=== PATIENT | male | born 1950 | race Caucasian/White ===

== ENCOUNTER → 2017-03-07 | Outpatient (CLI) | payer MEDICARE, OTHER ==
[2016-08-19 11:22] VITALS: BMI 33.1
[~2017-03-07] MED LIST: ALBU8.5H12 IH; AMOX-559 PO; ARI2 PO; ASPI-1471 PO; AUG875 PO; AZEL137S NS; AZEL6DRO9 OP; CHOL10005 PO; CIPR-214 PO; CLIN300C99 PO; CYCL10TA29 PO; ESCI20TA38 PO; ESCI20TA8 PO; FLUT16SP19 INH; FLUT16SP19 NS; FLUT1DIS28 IH; FOLI-68 PO; GUAN1TAB34 PO; HYDR-385 PO; HYDR-4309 PO; HYDR28.486 TP; HYDR2TAB74 PO; IBUP1TAB78 PO; IBUP600T22 PO; LAMO100T52 PO; LAMO150T36 PO; LAMOT150PT GT; LEVO-85 PO; LOR5/325 PO; MET10 PO; METH4TAB66 PO; MULT-1335 PO; NEPOD OD; NITR0.4T3 SL; ONDA4TAB PO; ONDA4TAB97 PO; OXYC-823 PO; OXYC-865 PO; PARO-243 PO; PARO-46 PO; PER PO; PRAV20TA65 PO; PRAV40TA78 PO; PRED20TA6 PO; RIV10 PO; SILD100T59 PO; SILD25TA6 PO; TAMS0.4C25 PO; TES75PMPPT TD; TEST1.25 TOP; TEST2.5G6; TRAM-420 PO; TRAZ-163 PO; TRIA5T TOP; TRIORA DT; ZOLP12.545 PO
== END ==
LOC: LAB 12:42
PROVIDERS: ATTEND Nurse Practitioner
DX: Z02.9 Encounter for administrative examinations, unspecified (principal)
CPT/HCPCS: 36415; 99001

== ENCOUNTER → 2017-05-02 | Outpatient (CLI) | payer MEDICARE, OTHER ==
[2016-08-19 11:22] VITALS: BMI 33.1
--- NOTE | 2017-05-02 16:40 | RADIOLOGY IMAGING REPORT ---
FACILITY: [facility] - [place] PATIENT NAME: Chava Peck : 1950 MR: [id number] V: [id number] EXAM DATE: ORDERING PHYSICIAN: LIUDMILA PRETTY TECHNOLOGIST: Location: [facility] Patient: Chava Peck : 1950 Visit/Account:[id number] Date of Sevice: 05/02/2017 GALLBLADDER HISTORY: Right upper quadrant pain ADDITIONAL HISTORY: None. COMPARISON: None. FINDINGS: Liver: Negative. Gallbladder: Unremarkable; no stones or sludge. Gallbladder wall upper normal limits in thickness at 3 mm. Positive sonographic Dudley's sign. Common duct: 3.0 mm diameter. Pancreas: Pancreas is unremarkable in appearance. Right kidney: Right kidney is 12.9 cm in length. There are multiple cysts in the right kidney includ ing a large exophytic cyst measuring 8.0 x 7.6 x 5.7 cm. Upper abdominal aorta and IVC: Patent. Ascites: None visualized. IMPRESSION: No evidence of cholelithiasis or cholecystitis. However, patient's pain does appear to correlate wit h the gallbladder with a positive sonographic Dudley's sign. Consider HIDA scan follow-up Multiple right renal cysts. Report Dictated By: Osvaldo Powell MD at 05/02/2017 4:33 PM Report E-Signed By: Osvaldo Powell MD at 05/02/2017 4:37 PM WSN:[id number]
== END ==
LOC: US 07:55
PROVIDERS: ATTEND Family Medicine
DX: N28.1 Cyst of kidney, acquired (principal); R19.8 Other specified symptoms and signs involving the digestive system and abdomen
CPT/HCPCS: 76705

== ENCOUNTER → 2017-05-15 | Outpatient (CLI) | payer MEDICARE, OTHER ==
[2016-08-19 11:22] VITALS: BMI 33.1
[~2017-05-15] MED LIST changes: -LAMOT150PT GT; +LAMOT150PT PO; +SINCALIDE 5 MCG VIAL INJ ONE; +WATER FOR INJ,STERILE 20 ML 0 ML ONE
--- NOTE | 2017-05-15 16:01 | RADIOLOGY IMAGING REPORT ---
FACILITY: [facility] PATIENT NAME: Chava Peck : 1950 MR: [id number] V: [id number] EXAM DATE: ORDERING PHYSICIAN: LIUDMILA PRETTY TECHNOLOGIST: [place] [facility] [place] Patient: Chava Peck : 1950 Visit/Account:[id number] Date of Sevice: 05/15/2017 HIDA HISTORY: Right upper quadrant pain TECHNIQUE: 5.5 mCi Tc99m Hepatolite was injected intravenously. Multiple sequential gamma camera jyoti ges of the abdomen were obtained for 118 minutes minutes. At that time, Kinevac was injected intraven ously and an additional 30 minutes of gamma camera imaging data was acquired. A computer-generated re gion of interest was placed around the gallbladder and time-activity curve for the gallbladder was de rived. The gallbladder ejection fraction was calculated. COMPARISON: Gallbladder ultrasound history 2017 FINDINGS: Liver uptake and excretion: Unremarkable. Time to appearance: Bile ducts: 5 minutes. Gallbladder: .... 41 minutes. Duodenum: 6 minutes. Duodenal-gastric reflux / extravasation: None. Post IV Kinevac: Despite two hours of imaging very little isotope entered into the gallbladder. CCK was not administe red to the patient as an accurate gallbladder ejection fraction could not be calculated due to inadeq uate isotope within the gallbladder IMPRESSION: CCK was not administered to the patient has very little isotope did enter the gallbladder despite two hours of imaging. Poor visualized the gallbladder can be seen with cholecystitis or chronic dysfunc tion or dyskinesis Report Dictated By: Lala Morton MD at 05/15/2017 3:50 PM Report E-Signed By: Lala Morton MD at 05/15/2017 3:56 PM WSN:[email or web address]
== END ==
LOC: RAD 07:06
PROVIDERS: ATTEND Family Medicine
DX: R10.11 Right upper quadrant pain (principal)
CPT/HCPCS: 78226; A9537; J2805

== ENCOUNTER 2017-05-21 00:20 | Observation (INO) | payer MEDICARE, OTHER ==
[2017-05-21] VITALS (15 sets, daily range): BP systolic 119–174; BP diastolic 69–98
[~2017-05-21] VITALS: Ht 167.6 cm; Wt 96.2 kg
[~2017-05-21 00:20] MED LIST changes: -SINCALIDE 5 MCG VIAL INJ ONE; -WATER FOR INJ,STERILE 20 ML 0 ML ONE
[2017-05-21] MEDS ORDERED: DEXAMETHASONE SOD 4 MG/ML VIAL ONE (09:30)
[2017-05-21] MEDS ORDERED: PROPOFOL EMUL(*) 10MG/ML 20 ML 20 ML ONE (09:30)
[2017-05-21] MEDS ORDERED: ROCURONIUM BROM 10 MG/ML 10 ML ONE (09:30)
[2017-05-21] MEDS ORDERED: SUGAMMADEX SOD 200 MG/2 ML SDV ONE (09:30)
[2017-05-21] MEDS ORDERED: fentaNYL CITR 250 MCG/5 ML AMP ONE (09:30)
[2017-05-21] MEDS ORDERED: ONDANSETRON 4 MG/2 ML VIAL ONE (09:30)
[2017-05-21] MEDS ORDERED: LIDOCAINE MPF 1% 5 ML VIAL ONE (09:30)
[2017-05-21] MEDS ORDERED: cefOXitin/DEX(*) 2GM/50ML PREM 50 ML IVPB ONE (10:30)
[2017-05-21] MEDS ORDERED: NORMOSOL R SOLN(*) 1000 ML BAG 1,000 ML IV PRN (10:30)
[2017-05-21] MEDS ORDERED: MIDAZOLAM 2 MG/2 ML VIAL IVP PRN (10:30)
[2017-05-21] MEDS ORDERED: FAMOTIDINE 20 MG TAB PO ONE (10:30)
[2017-05-21] MEDS ORDERED: LIDOCAINE/SOD BICARB 8.4% SYR ID ONE (10:30)
[2017-05-21] MEDS ORDERED: ROPIVACAINE 0.2% 20 ML VIAL ONE (11:03)
[2017-05-21] MEDS ORDERED: IOPAMIDOL 61% 100 ML INFUS BTL 100 ML ONE (11:04)
--- NOTE | 2017-05-21 11:21 | NACHTIGAL H&P ---
DATE OF ADMISSION: May 21, 2017 CHIEF COMPLAINT Right upper quadrant pain. HISTORY OF PRESENT ILLNESS This is a 67-year-old male who has had intermittent right upper quadrant pain for the last several months. This is a sharp pain which radiates through to the back, worse when he eats. He has occasional loose bowel movements. He has some nausea. He has had no fever. Patient has been having this for several months. It is increasing in frequency and intensity. Ultrasound was normal, but a HIDA scan showed poor uptake of the gallbladder. ALLERGIES CLINDAMYCIN. CURRENT MEDICATIONS 1. AndroGel 1%. 2. Aspirin. 3. Flomax 40 mg. 4. Folic acid 1 mg. 5. Lamictal 150 mg. 6. Ondansetron 8 mg. 7. Paxil 20 mg. 8. Pravastatin 40 mg. 9. Trazodone 100 mg. 10. Viagra p.r.n. 11. Vitamin D3. PAST MEDICAL HISTORY/OPERATIONS He had bilateral total knee replacements, cataract surgery, colonoscopy, and shoulder arthroscopy. PHYSICAL EXAMINATION GENERAL: A 67-year-old male in no acute distress. LUNGS: Clear. HEART: Regular rhythm. ABDOMEN: He has tenderness in the epigastrium and right upper quadrant. REVIEW OF SYSTEMS No cardiac, pulmonary, liver or kidney disease, diabetes or hypertension. No history of deep vein thrombosis. IMPRESSION Cholecystitis. PLAN Laparoscopic cholecystectomy with intraoperative cholangiogram. We discussed the procedure, complications and recovery time. He seems to understand and wishes to proceed. RAFA
[2017-05-21] MEDS ORDERED: GLYCOPYRROLATE 0.2 MG/ML SDV ONE (11:27)
[2017-05-21] MEDS ORDERED: KETOROLAC 30 MG/ML VIAL ONE (11:33)
[2017-05-21] MEDS ORDERED: KETAMINE HCL 200 MG/20 ML MDV ONE (12:00)
[2017-05-21] MEDS ORDERED: fentaNYL CITR 100 MCG/2 ML AMP ONE ×3 (12:08→12:58)
--- NOTE | 2017-05-21 12:17 | Post Operative Progress Note ---
Post Operative Progress Note Date: May 21, 2017 Time: 12:16 Surgeon: chas Anesthesia: dr granados Pre-Op Diagnosis: cholecystitis Post-Op Diagnosis: same Procedure(s): lap alex with FRANDY Kim MD May 21, 2017 12:17
--- NOTE | 2017-05-21 12:19 | Short(Outpt) Discharge Summary ---
Discharge Summary Reason for Hosp/Final Diag: (1) Cholecystitis Status: Chronic Hospital Course & Plan: lap alex with gram Departure Discharge to: Home Discharge Instructions Home Meds Reported Medications Paroxetine Hcl (PAXIL) 20 Mg Tablet, 20 MG PO QDAY, TAB 11/01/16 Lamotrigine (LAMICTAL) 150 Mg Tablet, 150 MG PO QDAY 11/01/16 Ibuprofen/Diphenhydramine Cit (IBUPROFEN PM CAPLET) Unknown Strength Tablet, PO QHS PRN 11/01/16 Folic Acid (FOLIC ACID) 1 Mg Tablet, 1 MG PO QDAY, TAB 11/01/16 TESTOSTERONE 1.62% Topical Gel (ANDROGEL 1.62% Topical Gel) 1.25 Gm Gel.packet, 50 MG TOP QDAY 08/24/16 Hydrocodone Bit/Acetaminophen (HYDROCODON-ACETAMINOPHEN 5-325) 1 Each Tablet, 1 EACH PO Q8H for PAIN, TAB 08/24/16 Sildenafil Citrate (VIAGRA) 25 Mg Tablet, PO PRN 08/24/16 Cholecalciferol (Vitamin D3) (VITAMIN D3) 1,000 Unit Tablet, PO DAILY, TAB 06/29/16 Fluticasone Prop 50 Mcg Ns (FLONASE 50 MCG NS) 16 Gm [place].susp, 1 SPRAY INH HS , BOT 06/29/16 Azelastine Hcl (AZELASTINE HCL) 137 Mcg/0.137 Ml [place].pump, 137 MCG NS DAILY, SPRAY 06/29/16 Tamsulosin Hcl (FLOMAX) 0.4 Mg Cap.er.24h, 0.4 MG PO QDAY, CAP 05/29/16 Pravastatin Sodium (PRAVASTATIN SODIUM) 40 Mg Tablet, 1 TAB PO QDAY 05/29/16 Trazodone Hcl (TRAZODONE HCL) 100 Mg Tablet, 100 MG PO QHS, TAB 05/29/16 Discontinued Reported Medications Fluticasone/Salmeterol (ADVAIR 250-50 DISKUS) 1 Each Disk.w.dev, 1 EACH IH BID 08/24/16 Discontinued Scripts Prednisone (PREDNISONE) 20 Mg Tablet, 60 MG PO QDAY, #9 TAB 0 Refills Prov:TG MEYER MD 01/19/17 Diet: Regular Activity: As Tolerated Special Instructions: ice to incisions for 48 hours remove bandage and shower sunday to see me in one week. call [phone] for FRANDY Hannah MD May 21, 2017 12:19
--- NOTE | 2017-05-21 12:36 | RADIOLOGY IMAGING REPORT ---
FACILITY: [facility] PATIENT NAME: Chava Peck : 1950 MR: [id number] V: [id number] EXAM DATE: ORDERING PHYSICIAN: FRANDY BUTLER TECHNOLOGIST: Location: [facility] Patient: Chava Peck : 1950 Visit/Account:[id number] Date of Sevice: 05/21/2017 Technique: CHOLANGIOGRAM OPERATIVE HISTORY: SYMPTOMATIC GALLBLADDER Comparison studies: HIDA May 15, 2017, right upper quadrant ultrasound April 24, 2017 FINDINGS: Multiple fluoroscopic images were obtained for laparoscopic cholecystectomy. No filling de fects are identified within the common bile duct or visualized intrahepatic biliary radicles. Contra st flows into the adjacent small bowel. Dose area product: 0.104 mGym2 IMPRESSION: 1. Intraoperative fluoroscopic radiographs as described above. Please see operative report for furt her details. Report Dictated By: Yordan Lyon DO at 05/21/2017 12:30 PM Report E-Signed By: Yordan Lyon DO at 05/21/2017 12:31 PM WSN:[id number]
[2017-05-21] MEDS ORDERED: APAP/HYDROCODONE 325/5 TAB PO ONE (13:50)
[2017-05-21] MEDS ORDERED: FLUSH 10 ML SYR IVP PRN (17:15)
[2017-05-21] MEDS ORDERED: APAP/HYDROCODONE 325/5 TAB PO PRN (17:15)
[2017-05-21] MEDS: KETOROLAC 30 MG/ML VIAL IVP SCH (18:28)
[2017-05-21] MEDS ORDERED: FLUTICASONE PROP 0.05% 16 GM SCH (21:00)
[2017-05-22] MEDS: KETOROLAC 30 MG/ML VIAL IVP SCH ×2 (00:13→05:25)
[2017-05-22 00:15] VITALS: BP 129/67
[2017-05-22 04:04] VITALS: BP 137/74
--- NOTE | 2017-05-22 04:22 | OPERATIVE REPORT 1 ---
EVENT DATE: May 21, 2017. SURGEON: Shoaib Gallardo MD ANESTHESIOLOGIST: Juliocesar Rosario MD ANESTHESIA: General. PREOPERATIVE DIAGNOSIS Acalculous cholecystitis. POSTOPERATIVE DIAGNOSIS Acalculous cholecystitis. PROCEDURE Laparoscopic cholecystectomy with intraoperative cholangiogram. DESCRIPTION OF PROCEDURE Patient was placed in the supine position and given general anesthetic. His abdomen was prepped and draped in sterile fashion. Skin was anesthetized with 0.2% ropivacaine. Small incision was made above the umbilicus. Veress needle was inserted. The abdomen was insufflated with CO2. A 5 mm port was placed under direct vision. No bleeding was noted. Ports were placed under direct vision, two 5 mm in the right subcostal region and a 10 mm in the epigastrium. Gallbladder was grasped and raised cephalad. There were adhesions to the undersurface of the gallbladder. These were taken down with electrocautery and blunt dissection. We dissected out the cystic duct, gallbladder junction, placed a clip there, opened the cystic duct, inserted Taut catheter, obtained cholangiograms, which were normal. Cystic duct was doubly clipped proximally and transected. Cystic artery a couple of branches were dissected out. They were clipped proximally, distally and transected. We then used electrocautery to dissect the gallbladder from the bed of the liver. This dissection went very nicely. We had excellent hemostasis. Gallbladder was removed through the epigastric port. We inspected for bleeding again in the fossa, none was noted. Ports were removed under direct vision. No bleeding was noted. Skin was closed with interrupted 4-0 Maxon. Steri-Strips and Airstrip were placed. Patient tolerated procedure well, no apparent complications. [facility] HOSPITALBeti
--- NOTE | 2017-05-22 07:08 | General Surgery Progress Note ---
Subjective Progress Notes Subjective no complaints, slept well, no nausea, pain less Physical Exam Vital Signs Date Time Temp Pulse Resp B/P (MAP) Pulse Ox O2 Delivery O2 Flow Rate FiO2 05/22/17 04:04 98.5 42 16 137/74 (95) 96 Nasal Cannula 1.0 General Appearance: Alert, Awake, No Acute Distress GI: Soft and Non-Tender Assessment and Plan Problems: (1) Cholecystitis Status: Chronic Assessment & Plan: lap alex with gram 05/22/17 doing well, home today Exam Sepsis Risk: No Definite Risk FRANDY BUTLER MD May 22, 2017 07:08
[2017-05-22 07:56] VITALS: BP 144/76; Ht 167.6 cm; Wt 96.2 kg
[2017-05-22] MEDS ORDERED: PARoxetine HCL 20 MG TAB PO SCH (09:00)
[2017-05-22] MEDS ORDERED: FOLIC ACID 1 MG TAB PO SCH (09:00)
[2017-05-22] MEDS ORDERED: TAMSULOSIN HCL 0.4 MG CAP PO SCH (09:00)
== END 2017-05-22 12:17 | disposition home or self-care (01) ==
LOC: OR 00:20 → MED 17:25
PROVIDERS: ADMIT Surgery; ATTEND Surgery
DX: K81.9 Cholecystitis, unspecified (principal)
CPT/HCPCS: 47563; 74300; 88304; 94667; A9270; G0378; J0694; J1100; J1885; J2001; J2405; J2704; J2795; J3010; J3490; Q9967

== ENCOUNTER → 2017-07-24 | Outpatient (REF) ==
[2017-05-22 07:56] VITALS: BMI 34.2
== END ==
LOC: LAB 17:06
PROVIDERS: ATTEND Nurse Practitioner
DX: Z02.83 Encounter for blood-alcohol and blood-drug test (principal)
CPT/HCPCS: 99001

== ENCOUNTER 2017-08-29 17:17 | Emergency (ER) | payer MEDICARE, OTHER ==
[2017-05-22 07:56] VITALS: Wt 72.6 kg
[2017-08-29 17:22] VITALS: BP 192/101
--- NOTE | 2017-08-29 17:30 | ER Report ---
History and Physical Time Seen By MD: 17:29 Hx. of Stated Complaint: pt states feels terrible, unable to eat/drink much, nauseated. reports when doing assessment that he found out today his is him and that he had court today for 4th DUI, trial will be in january ([facility] MD) Time Seen By MD: 17:36 (ROGERS CAMARA DO) HPI/ROS CHIEF COMPLAINT: Nausea, vomiting HISTORY OF PRESENT ILLNESS: 67-year-old male brought in by EMS from home complaining of epigastric pain and nausea. He did vomit last night. Patient states he is an alcoholic. He states she's been sober since March until several days ago when he began drinking again. He states his last alcohol was 2 days ago. He has numerous medical problems. He was as started on gabapentin for chronic back pain. He's been seeing Dr. Santacruz and consultation for consideration of back surgery. Patient states he's lost 90 pounds in 18 months intentionally. He notes no change in bowel habits such as diarrhea, constipation or black stools. Patient denies dysuria, frequency or hematuria. Patient status post lap scopic, cholecystectomy since May of this year. Patient admits he was in court today for his 4th DUI. Patient's also under a lot of stress remodeling his home. He and his are also going through divorce. REVIEW OF SYSTEMS: Respiratory: No cough, no dyspnea. Cardiovascular: No chest pain, no palpitations. Gastrointestinal: As above Musculoskeletal: No back pain. (ROGERS CAMARA DO) Allergies: Coded Allergies: clindamycin (Verified Allergy, Unknown, 08/29/17) Home Meds Active Scripts Ondansetron (ZOFRAN ODT) 4 Mg Tab.rapdis, 4 MG PO every 6 hours Y for NAUSEA/ VOMITING, #10 TAB TAKE 1 TABLET BY MOUTH EVERY 12 HOURS Prov:ROGERS CAMARA DO 08/29/17 Reported Medications Paroxetine Hcl (PAXIL) 20 Mg Tablet, 20 MG PO QDAY, TAB 11/01/16 Lamotrigine (LAMICTAL) 150 Mg Tablet, 150 MG PO QDAY 11/01/16 Ibuprofen/Diphenhydramine Cit (IBUPROFEN PM CAPLET) Unknown Strength Tablet, PO QHS PRN 11/01/16 Folic Acid (FOLIC ACID) 1 Mg Tablet, 1 MG PO QDAY, TAB 8/30/17 TESTOSTERONE 1.62% Topical Gel (ANDROGEL 1.62% Topical Gel) 1.25 Gm Gel.packet, 50 MG TOP QDAY 08/24/16 Hydrocodone Bit/Acetaminophen (HYDROCODON-ACETAMINOPHEN 5-325) 1 Each Tablet, 1 EACH PO Q8H for PAIN, TAB 08/24/16 Sildenafil Citrate (VIAGRA) 25 Mg Tablet, PO PRN 08/24/16 Cholecalciferol (Vitamin D3) (VITAMIN D3) 1,000 Unit Tablet, PO DAILY, TAB 06/29/16 Fluticasone Prop 50 Mcg Ns (FLONASE 50 MCG NS) 16 Gm [place].susp, 1 SPRAY INH HS , BOT 06/29/16 Azelastine Hcl (AZELASTINE HCL) 137 Mcg/0.137 Ml [place].pump, 137 MCG NS DAILY, SPRAY 06/29/16 Tamsulosin Hcl (FLOMAX) 0.4 Mg Cap.er.24h, 0.4 MG PO QDAY, CAP 05/29/16 Pravastatin Sodium (PRAVASTATIN SODIUM) 40 Mg Tablet, 1 TAB PO QDAY 05/29/16 Trazodone Hcl (TRAZODONE HCL) 100 Mg Tablet, 100 MG PO QHS, TAB 05/29/16 Past Medical/Surgical History Past medical history: Bilateral cataracts and retinal detachments, hypercholesterolemia, allergic rhinitis, chronic prostatitis, osteoarthritis, alcohol abuse/alcohol dependence. Past surgical history bilateral cataracts, retinal detachments, sinus surgery, laparoscopic cholecystectomy lateral knee replacements, right shoulder scope biopsy (ROGERS CAMARA DO) Reviewed Nurses Notes: Yes Old Medical Records Reviewed: Yes (ROGERS CAMARA DO) Hx Smoking: No Smoking Status: Never Smoker Exposure to Second Hand Smoke?: No Hx Substance Use Disorder: No Hx Alcohol Use: Yes (TG MEYER MD) Constitutional Vital Sign - Last 24 Hours 08/29/17 17:22 Temp 98.2 Pulse 76 Resp 16 B/P (MAP) 192/101 Pulse Ox 95 Intake and Output 08/29/17 08/29/17 08/30/17 15:00 23:00 07:00 Intake Total 1000 ml Balance 1000 ml (ROGERS CAMARA DO) Physical Exam Vital signs stable, afebrile, pulse ox normal, blood pressure grossly elevated 192/101 General Appearance: The patient is alert, has no immediate need for airway protection and no current signs of toxicity. No acute distress, skin warm, dry , pink HEENT: Pupils equal and round no injection. Oropharynx without redness or exudate, mucous members are moist Respiratory: Chest is non tender, lungs are clear to auscultation. Cardiac: regular rate and rhythm Gastrointestinal: Abdomen is soft and non tender, no masses, bowel sounds normal. No hepatomegaly Musculoskeletal: Neck: Neck is supple and non tender. Extremities have full range of motion and are non tender. No edema, no calf tenderness Skin: No rashes or lesions. DIFFERENTIAL DIAGNOSIS: After history and physical exam differential diagnosis was considered for abdominal pain including but not limited to appendicitis, cholecystitis, gastritis and urinary tract infection. (ROGERS CAMARA DO) Medical Decision Making Data Points Result Diagram: 08/29/17 1705 08/29/17 1705 Laboratory Hematology Test 08/29/17 17:05 08/29/17 18:12 Red Blood Count 5.25 M/uL (4.00-5.60) Mean Corpuscular Volume 90.2 fL (80.0-96.0) Mean Corpuscular Hemoglobin 31.1 pg (26.0-33.0) Mean Corpuscular Hemoglobin Concent 34.4 g/dL (32.0-36.0) Red Cell Distribution Width 13.4 % (11.5-14.5) Mean Platelet Volume 8.6 fL (7.2-11.1) Neutrophils (%) (Auto) 63.1 % (39.4-72.5) Lymphocytes (%) (Auto) 28.5 % (17.6-49.6) Monocytes (%) (Auto) 7.5 % (4.1-12.4) Eosinophils (%) (Auto) 0.5 % (0.4-6.7) Basophils (%) (Auto) 0.4 % (0.3-1.4) Nucleated RBC Relative Count (auto) 0.0 /100WBC Neutrophils # (Auto) 6.1 K/uL (2.0-7.4) Lymphocytes # (Auto) 2.8 K/uL (1.3-3.6) Monocytes # (Auto) 0.7 K/uL (0.3-1.0) Eosinophils # (Auto) 0.1 K/uL (0.0-0.5) Basophils # (Auto) 0.0 K/uL (0.0-0.1) Nucleated RBC Absolute Count (auto) 0.00 K/uL Sodium Level 140 mmol/L (137-145) Potassium Level 3.6 mmol/L (3.5-5.0) Chloride Level 101 mmol/L (98-107) Carbon Dioxide Level 24 mmol/L (22-30) Blood Urea Nitrogen 12 mg/dl (9-21) Creatinine 0.80 mg/dl (0.66-1.25) Glomerular Filtration Rate Calc > 60.0 Random Glucose 115 mg/dl (75-110) Calcium Level 10.1 mg/dl (8.4-10.2) Total Bilirubin 0.6 mg/dl (0.2-1.3) Aspartate Amino Transf (AST/SGOT) 93 U/L (0-35) Alanine Aminotransferase (ALT/SGPT) 97 U/L (0-56) Alkaline Phosphatase 54 U/L (0-126) Troponin I < 0.012 ng/ml Total Protein 7.9 g/dl (6.3-8.2) Albumin 4.8 g/dl (3.5-5.0) Amylase Level 69 U/L (0-110) Lipase 89 U/L (23-300) Serum Alcohol < 10 mg/dl Urine Color Yellow Urine Clarity Slightly-cloudy Urine pH 5.0 pH (4.8-9.5) Urine Specific [place] 1.024 Urine Protein 30 mg/dL (NEGATIVE) Urine Glucose (UA) 50 mg/dL (NEGATIVE) Urine Ketones Negative mg/dL (NEGATIVE) Urine Blood Negative (NEGATIVE) Urine Nitrite Negative (NEGATIVE) Urine Bilirubin Negative (NEGATIVE) Urine Urobilinogen Negative mg/dL (0.2-1.9) Urine Leukocyte Esterase Negative (NEGATIVE) Urine RBC 1 /HPF (0-2/HPF) Urine WBC 1 /HPF (0-5/HPF) Urine Squamous Epithelial Cells None /LPF (</=FEW) Urine Bacteria Negative /HPF (NONE-FEW) Urine Mucus Few /HPF (NONE-FEW) Chemistry Test 08/29/17 17:05 08/29/17 18:12 White Blood Count 9.7 k/uL (4.5-11.0) Red Blood Count 5.25 M/uL (4.00-5.60) Hemoglobin 16.3 g/dL (14.0-18.0) Hematocrit 47.4 % (42.0-52.0) Mean Corpuscular Volume 90.2 fL (80.0-96.0) Mean Corpuscular Hemoglobin 31.1 pg (26.0-33.0) Mean Corpuscular Hemoglobin Concent 34.4 g/dL (32.0-36.0) Red Cell Distribution Width 13.4 % (11.5-14.5) Platelet Count 193 K/uL (150-450) Mean Platelet Volume 8.6 fL (7.2-11.1) Neutrophils (%) (Auto) 63.1 % (39.4-72.5) Lymphocytes (%) (Auto) 28.5 % (17.6-49.6) Monocytes (%) (Auto) 7.5 % (4.1-12.4) Eosinophils (%) (Auto) 0.5 % (0.4-6.7) Basophils (%) (Auto) 0.4 % (0.3-1.4) Nucleated RBC Relative Count (auto) 0.0 /100WBC Neutrophils # (Auto) 6.1 K/uL (2.0-7.4) Lymphocytes # (Auto) 2.8 K/uL (1.3-3.6) Monocytes # (Auto) 0.7 K/uL (0.3-1.0) Eosinophils # (Auto) 0.1 K/uL (0.0-0.5) Basophils # (Auto) 0.0 K/uL (0.0-0.1) Nucleated RBC Absolute Count (auto) 0.00 K/uL Glomerular Filtration Rate Calc > 60.0 Calcium Level 10.1 mg/dl (8.4-10.2) Total Bilirubin 0.6 mg/dl (0.2-1.3) Aspartate Amino Transf (AST/SGOT) 93 U/L (0-35) Alanine Aminotransferase (ALT/SGPT) 97 U/L (0-56) Alkaline Phosphatase 54 U/L (0-126) Troponin I < 0.012 ng/ml Total Protein 7.9 g/dl (6.3-8.2) Albumin 4.8 g/dl (3.5-5.0) Amylase Level 69 U/L (0-110) Lipase 89 U/L (23-300) Serum Alcohol < 10 mg/dl Urine Color Yellow Urine Clarity Slightly-cloudy Urine pH 5.0 pH (4.8-9.5) Urine Specific [place] 1.024 Urine Protein 30 mg/dL (NEGATIVE) Urine Glucose (UA) 50 mg/dL (NEGATIVE) Urine Ketones Negative mg/dL (NEGATIVE) Urine Blood Negative (NEGATIVE) Urine Nitrite Negative (NEGATIVE) Urine Bilirubin Negative (NEGATIVE) Urine Urobilinogen Negative mg/dL (0.2-1.9) Urine Leukocyte Esterase Negative (NEGATIVE) Urine RBC 1 /HPF (0-2/HPF) Urine WBC 1 /HPF (0-5/HPF) Urine Squamous Epithelial Cells None /LPF (</=FEW) Urine Bacteria Negative /HPF (NONE-FEW) Urine Mucus Few /HPF (NONE-FEW) Toxicology Test 08/29/17 17:05 Serum Alcohol < 10 mg/dl Urinalysis Test 08/29/17 18:12 Urine Color Yellow Urine Clarity Slightly-cloudy Urine pH 5.0 pH (4.8-9.5) Urine Specific [place] 1.024 Urine Protein 30 mg/dL (NEGATIVE) Urine Glucose (UA) 50 mg/dL (NEGATIVE) Urine Ketones Negative mg/dL (NEGATIVE) Urine Blood Negative (NEGATIVE) Urine Nitrite Negative (NEGATIVE) Urine Bilirubin Negative (NEGATIVE) Urine Urobilinogen Negative mg/dL (0.2-1.9) Urine Leukocyte Esterase Negative (NEGATIVE) Urine RBC 1 /HPF (0-2/HPF) Urine WBC 1 /HPF (0-5/HPF) Urine Squamous Epithelial Cells None /LPF (</=FEW) Urine Bacteria Negative /HPF (NONE-FEW) Urine Mucus Few /HPF (NONE-FEW) (ROGERS CAMARA DO) EKG/Imaging EKG Interpretation 12 lead EK Rhythm: normal sinus rhythm [place]: normal QRS: normal ST segments: normal, no evidence of ischemia or dysrhythmia (ROGERS CAMARA DO) ED Course/Re-evaluation Clinical Indication for ER IV: Hydration, IV Access ED Course Patient was admitted to an examination room. H&P was done. The differential diagnoses was considered. Patient with abdominal discomfort and nausea. He had vomiting the night before. He is treated with IV fluids and Zofran. He appears quite anxious. He appeared in court today for his 4th DUI. Diagnostic evaluation is unremarkable. His laboratory studies are unremarkable. His EKG and troponin are negative. Patient with acute anxiety over multiple life stressors. Patient advised to continue on all of his medication. Prescription for Zofran provided for nausea control. He's advised to follow-up with his primary care physician. Decision to Disposition Date: Aug 29, 2017 Decision to Disposition Time: 18:37 (ROGERS CAMARA DO) Depart Departure Latest Vital Signs Vital Signs Date Time Temp Pulse Resp B/P (MAP) Pulse Ox O2 Delivery O2 Flow Rate FiO2 08/29/17 17:22 98.2 76 16 192/101 95 (ROGERS CAMARA DO) Impression: Primary Impression: Nausea and vomiting Additional Impressions: Abdominal pain Anxiety as acute reaction to gross stress Hyperlipidemia Condition: Improved Disposition: HOME OR SELF-CARE Referrals: LIUDMILA PRETTY MD (PCP) New Scripts Ondansetron (ZOFRAN ODT) 4 Mg Tab.rapdis 4 MG PO every 6 hours Y for NAUSEA/VOMITING, #10 TAB TAKE 1 TABLET BY MOUTH EVERY 12 HOURS Prov: ROGERS CAMARA DO 08/29/17 Patient Instructions: Abdominal Pain (ED), Anxiety (ED) Problem Qualifiers Primary Impression: Nausea and vomiting Vomiting type: unspecified Vomiting Intractability: unspecified Qualified Codes: R11.2 - Nausea with vomiting, unspecified Additional Impressions: Abdominal pain Abdominal location: upper abdomen, unspecified Qualified Codes: R10.10 - Upper abdominal pain, unspecified Hyperlipidemia Hyperlipidemia type: unspecified Qualified Codes: E78.5 - Hyperlipidemia, unspecified TG MEYER MD Aug 29, 2017 17:30 ROGERS CAMARA DO Aug 29, 2017 17:36
[2017-08-29] MEDS ORDERED: NS(*) 0.9% 1000 ML BAG 1,000 ML IV ONE (17:42)
[2017-08-29] MEDS ORDERED: ONDANSETRON 4 MG/2 ML VIAL IVP ONE (17:45)
[2017-08-29 17:56] LABS: PLATELET COUNT, AUTOMATED 193 K/uL (150-450)
--- NOTE | 2017-08-29 17:56 | EKG ---
FACILITY: [facility] [place] PATIENT NAME: BORIS GOFF : [id number] MR: [id number] V: [id number] EXAM DATE: ORDERING PHYSICIAN: ROGERS CAMARA TECHNOLOGIST: ANNABELLE Test Reason : NAUSEA Blood Pressure : / mmHG Vent. Rate : 067 BPM Atrial Rate : 067 BPM P-R Int : 158 ms QRS Dur : 098 ms QT Int : 410 ms P-R-T Axes : 056 016 044 degrees QTc Int : 433 ms Normal sinus rhythm Normal ECG When compared with ECG of 09-JAN-2017 14:05, Relatively unchanged Confirmed by EFRAIN PABLO ([id number]) on 08/29/2017 6:58:51 PM Referred By: BETSY Confirmed By:EFRAIN PABLO
[2017-08-29] MEDS ORDERED: ONDA4TAB PO (18:39)
== END 2017-08-29 19:05 | disposition home or self-care (01) ==
LOC: ER 17:26
DX: F41.9 Anxiety disorder, unspecified (principal); E78.5 Hyperlipidemia, unspecified; R11.2 Nausea with vomiting, unspecified; R10.10 Upper abdominal pain, unspecified
CPT/HCPCS: 81001; 82150; 83690; 84484; 85025; 93005; 96361; 96374; 99283; G0480; J2405; J7030; 80320; 82040; 82247; 82310; 82374; 82435; 82565; 82947; 84075; 84132; 84155; 84295; 84450; 84460; 84520

== ENCOUNTER → 2017-08-29 | Outpatient (CLI) | payer MEDICARE, OTHER ==
[2017-05-22 07:56] VITALS: BMI 34.2
== END ==
LOC: AMB 17:06
PROVIDERS: ATTEND Nurse Practitioner
DX: R53.1 Weakness (principal); R11.10 Vomiting, unspecified
CPT/HCPCS: A0425; A0427

== ENCOUNTER → 2017-11-08 | Outpatient (REF) | payer MEDICARE, OTHER ==
[2017-05-22 07:56] VITALS: BMI 34.2
[~2017-11-08] MED LIST changes: -TRAZ-163 PO; +TRAZ100T31 PO
[2017-11-08 12:01] LABS: INR 1.02
== END ==
LOC: ZZSENDIN 11:33
PROVIDERS: ATTEND Physician Assistant
DX: Z01.812 Encounter for preprocedural laboratory examination (principal)
CPT/HCPCS: 81001; 85610

== ENCOUNTER 2017-11-16 10:18 | Emergency (ER) | payer MEDICARE, OTHER ==
[2017-05-22 07:56] VITALS: Wt 86.2 kg
[~2017-11-16 10:18] MED LIST changes: -DOCU-416 PO; -GABA-549 PO; -MAG-66 PO; -MULT-859 PO
[2017-11-16 10:20] VITALS: BP 136/78
--- NOTE | 2017-11-16 10:41 | ER Report ---
History and Physical Time Seen By MD: 10:37 Hx. of Stated Complaint: PT WAS SEEN BY HIS MENTAL [facility] THERAPIST TODAY STATING HE DOESNT WANT TO LIVE ANYMORE AND HE JUST WANTS TO BE DONE WITH EVERYHING. PT HAS BEEN IN PAIN FOR THE LAST TEN YEARS R/T A BACK SURGERY. THEN IN [facility] HIS FILED FOR A DIVORCE. PT ADMITSHE DOES NOT HAVE A CURRENT PLAN, BUT WOULD BE OK IF HE . PT ADMITTED TO DRINKING VODKA THIS AM. HPI/ROS CHIEF COMPLAINT: [facility]HS evaluation HISTORY OF PRESENT ILLNESS: Patient is a 67-year-old male with history of bipolar disorder, alcohol dependence and abuse, posttraumatic stress disorder. He is brought to the emergency department via ambulance for evaluation for suicidal ideation without specific plan. I did receive a call from his counselor at [facility]. Apparently over the last month or so the patient has had a decline and has become increasingly more depressed, hopeless and helpless and is having thoughts of suicide. Patient himself denies a specific plan but admits to and he dyspnea, and just not wanting to live. He apparently did speak with his ex- this morning and said that he just wanted everything to end. Patient also recently relapsed on alcohol his last drink was approximate 5 AM this morning admits to vodka. REVIEW OF SYSTEMS: Constitutional: No fever, no chills. Eyes: No discharge. ENT: No sore throat. Cardiovascular: No chest pain, no palpitations. Respiratory: No cough, no shortness of breath. Gastrointestinal: No abdominal pain, no vomiting. Genitourinary: No hematuria. Musculoskeletal: No back pain. Skin: No rashes. Neurological: No headache. Psychiatric: Depression with suicidal thoughts no specific plan Allergies: Coded Allergies: clindamycin (Verified Allergy, Unknown, 08/29/17) Home Meds Reported Medications Paroxetine Hcl (PAXIL) 20 Mg Tablet, 20 MG PO QDAY, TAB 11/01/16 Lamotrigine (LAMICTAL) 150 Mg Tablet, 150 MG PO QDAY 11/01/16 Folic Acid (FOLIC ACID) 1 Mg Tablet, 1 MG PO QDAY, TAB 11/01/16 TESTOSTERONE 1.62% Topical Gel (ANDROGEL 1.62% Topical Gel) 1.25 Gm Gel.packet, 50 MG TOP QDAY 6/22/17 Hydrocodone Bit/Acetaminophen (HYDROCODON-ACETAMINOPHEN 5-325) 1 Each Tablet, 1 EACH PO PRN for PAIN, TAB 08/24/16 Cholecalciferol (Vitamin D3) (VITAMIN D3) 1,000 Unit Tablet, PO DAILY, TAB 06/29/16 Fluticasone Prop 50 Mcg Ns (FLONASE 50 MCG NS) 16 Gm [place].susp, 1 SPRAY INH PRN, BOT 06/29/16 Azelastine Hcl (AZELASTINE HCL) 137 Mcg/0.137 Ml [place].pump, 137 MCG NS PRN, SPRAY 06/29/16 Tamsulosin Hcl (FLOMAX) 0.4 Mg Cap.er.24h, 0.4 MG PO QDAY, CAP 05/29/16 Pravastatin Sodium (PRAVASTATIN SODIUM) 40 Mg Tablet, 1 TAB PO QDAY 05/29/16 Trazodone Hcl (TRAZODONE HCL) 100 Mg Tablet, 100 MG PO QHS, TAB 05/29/16 Discontinued Reported Medications Ibuprofen/Diphenhydramine Cit (IBUPROFEN PM CAPLET) Unknown Strength Tablet, PO QHS PRN 11/01/16 Sildenafil Citrate (VIAGRA) 25 Mg Tablet, PO PRN 08/24/16 Discontinued Scripts Ondansetron (ZOFRAN ODT) 4 Mg Tab.rapdis, 4 MG PO every 6 hours PRN for NAUSEA/VOMITING, #10 TAB TAKE 1 TABLET BY MOUTH EVERY 12 HOURS Prov:ROGERS CAMARA DO 08/29/17 Past Medical/Surgical History Past medical history for depression, alcohol abuse, bipolar disorder, hyper cholesterolemia Hx Smoking: No Smoking Status: Never Smoker Exposure to Second Hand Smoke?: No Hx Substance Use Disorder: No Constitutional Vital Sign - Last 24 Hours 11/16/17 10:20 Temp 98.4 Pulse 51 Resp 16 B/P (MAP) 136/78 Pulse Ox 93 Physical Exam General/Constitutional: Patient is awake, alert, nontoxic and in no acute respiratory distress. Head: Normocephalic and atraumatic. Eyes: Conjunctival clear, Pupils are equal and reactive to light. Extraocular muscles are intact and symmetrical. Sclera are clear and anicteric. Ears:External canals are clear. Tympanic membranes are clear with normal landmarks and light reflex. Nares: No rhinorrhea or bleeding. Turbinates are pink and moist. Oropharyngeal: Mucous membranes are moist. Neck: Supple, no adenopathy. Cardiovascular: Heart is regular rate and rhythm without audible murmurs, rubs or gallops. Pulmonary: Lungs are clear to auscultation bilaterally. There are no wheezes, rales, or rhonchi. Chest rise is symmetrical Abdomen: Soft, nontender, no guarding or peritoneal signs. Extremities: No gross deformities, No peripheral cyanosis. Able to move all 4 extremities. Neuro: Alert and oriented X3, Cranial nerves 2 thru 12 are intact and symmetrical. Patient has normal gait. Skin: No rashes, skin is warm dry and well perfused. Psychiatric: Patient with suicidal thoughts without active plan. No obvious audiovisual hallucinations. Patient does not seem to be reacting to internal stimuli. Mood appears happy which is incongruent for situation. Medical Decision Making Data Points Result Diagram: 11/16/17 1048 11/16/17 1048 Laboratory Hematology Test 11/16/17 10:48 Red Blood Count 4.86 M/uL (4.00-5.60) Mean Corpuscular Volume 93.4 fL (80.0-96.0) Mean Corpuscular Hemoglobin 31.5 pg (26.0-33.0) Mean Corpuscular Hemoglobin Concent 33.8 g/dL (32.0-36.0) Red Cell Distribution Width 13.8 % (11.5-14.5) Mean Platelet Volume 7.8 fL (7.2-11.1) Neutrophils (%) (Auto) 46.2 % (39.4-72.5) Lymphocytes (%) (Auto) 42.3 % (17.6-49.6) Monocytes (%) (Auto) 8.2 % (4.1-12.4) Eosinophils (%) (Auto) 2.7 % (0.4-6.7) Basophils (%) (Auto) 0.6 % (0.3-1.4) Nucleated RBC Relative Count (auto) 0.0 /100WBC Neutrophils # (Auto) 3.0 K/uL (2.0-7.4) Lymphocytes # (Auto) 2.7 K/uL (1.3-3.6) Monocytes # (Auto) 0.5 K/uL (0.3-1.0) Eosinophils # (Auto) 0.2 K/uL (0.0-0.5) Basophils # (Auto) 0.0 K/uL (0.0-0.1) Nucleated RBC Absolute Count (auto) 0.00 K/uL Sodium Level 140 mmol/L (137-145) Potassium Level 3.8 mmol/L (3.5-5.0) Chloride Level 105 mmol/L (98-107) Carbon Dioxide Level 24 mmol/L (22-30) Blood Urea Nitrogen 18 mg/dl (9-21) Creatinine 0.70 mg/dl (0.66-1.25) Glomerular Filtration Rate Calc > 60.0 Random Glucose 97 mg/dl (75-110) Calcium Level 9.7 mg/dl (8.4-10.2) Magnesium Level 1.8 mg/dl (1.7-2.2) Total Bilirubin 0.2 mg/dl (0.2-1.3) Aspartate Amino Transf (AST/SGOT) 23 U/L (0-35) Alanine Aminotransferase (ALT/SGPT) 29 U/L (0-56) Alkaline Phosphatase 28 U/L (0-126) Total Protein 6.8 g/dl (6.3-8.2) Albumin 4.1 g/dl (3.5-5.0) Salicylates Level < 10 mg/L Salicylate Last Dose Date unk Acetaminophen Level < 10 ug/ml Serum Alcohol 149 mg/dl Chemistry Test 11/16/17 10:48 White Blood Count 6.5 k/uL (4.5-11.0) Red Blood Count 4.86 M/uL (4.00-5.60) Hemoglobin 15.3 g/dL (14.0-18.0) Hematocrit 45.4 % (42.0-52.0) Mean Corpuscular Volume 93.4 fL (80.0-96.0) Mean Corpuscular Hemoglobin 31.5 pg (26.0-33.0) Mean Corpuscular Hemoglobin Concent 33.8 g/dL (32.0-36.0) Red Cell Distribution Width 13.8 % (11.5-14.5) Platelet Count 201 K/uL (150-450) Mean Platelet Volume 7.8 fL (7.2-11.1) Neutrophils (%) (Auto) 46.2 % (39.4-72.5) Lymphocytes (%) (Auto) 42.3 % (17.6-49.6) Monocytes (%) (Auto) 8.2 % (4.1-12.4) Eosinophils (%) (Auto) 2.7 % (0.4-6.7) Basophils (%) (Auto) 0.6 % (0.3-1.4) Nucleated RBC Relative Count (auto) 0.0 /100WBC Neutrophils # (Auto) 3.0 K/uL (2.0-7.4) Lymphocytes # (Auto) 2.7 K/uL (1.3-3.6) Monocytes # (Auto) 0.5 K/uL (0.3-1.0) Eosinophils # (Auto) 0.2 K/uL (0.0-0.5) Basophils # (Auto) 0.0 K/uL (0.0-0.1) Nucleated RBC Absolute Count (auto) 0.00 K/uL Glomerular Filtration Rate Calc > 60.0 Calcium Level 9.7 mg/dl (8.4-10.2) Magnesium Level 1.8 mg/dl (1.7-2.2) Total Bilirubin 0.2 mg/dl (0.2-1.3) Aspartate Amino Transf (AST/SGOT) 23 U/L (0-35) Alanine Aminotransferase (ALT/SGPT) 29 U/L (0-56) Alkaline Phosphatase 28 U/L (0-126) Total Protein 6.8 g/dl (6.3-8.2) Albumin 4.1 g/dl (3.5-5.0) Salicylates Level < 10 mg/L Salicylate Last Dose Date unk Acetaminophen Level < 10 ug/ml Serum Alcohol 149 mg/dl Toxicology Test 11/16/17 10:48 Salicylates Level < 10 mg/L Salicylate Last Dose Date unk Acetaminophen Level < 10 ug/ml Serum Alcohol 149 mg/dl EKG/Imaging EKG Interpretation EKG shows sinus bradycardia with a ventricular rate of 49 bpm. Monitor Interpretation: Sinus Bradycardia ED Course/Re-evaluation ED Course 11/16/2017 10:41:21 am plan at this time will be [place] was assessment; medical screening evaluation. Patient suicidal with any Soheila and helplessness hopelessness. Suspect if cleared medically we'll admit to the psychiatric floor. Decision to Disposition Date: Nov 16, 2017 Decision to Disposition Time: 11:33 Depart Departure Latest Vital Signs Vital Signs Date Time Temp Pulse Resp B/P (MAP) Pulse Ox O2 Delivery O2 Flow Rate FiO2 11/16/17 10:20 98.4 51 16 136/78 93 Impression: Primary Impression: Depression with suicidal ideation Additional Impression: Alcohol intoxication Condition: Improved Disposition: XFER TO [facility] (to dr Smyth) Referrals: LIUDMILA PRETTY MD (PCP) Problem Qualifiers Additional Impression: Alcohol intoxication Complication of substance-induced condition: uncomplicated Qualified Codes: F10.920 - Alcohol use, unspecified with intoxication, uncomplicated SHEYLA RAMOS MD Nov 16, 2017 10:41
[2017-11-16 11:02] LABS: PLATELET COUNT, AUTOMATED 201 K/uL (150-450)
--- NOTE | 2017-11-16 11:09 | EKG ---
FACILITY: [facility] PATIENT NAME: BORIS GOFF : [id number] MR: [id number] V: [id number] EXAM DATE: ORDERING PHYSICIAN: SHEYLA RAMOS TECHNOLOGIST: ANGEL Test Reason : PRE OP Blood Pressure : / mmHG Vent. Rate : 049 BPM Atrial Rate : 049 BPM P-R Int : 158 ms QRS Dur : 094 ms QT Int : 444 ms P-R-T Axes : 053 017 042 degrees QTc Int : 401 ms Sinus bradycardia Probable left atrial enlargement Borderline left axis Confirmed by LETICIA BOGGS ([id number]) on 11/16/2017 5:46:57 PM Referred By: RICHARD Confirmed By:LETICIA BOGGS
[2017-11-16] MEDS ORDERED: GABA-549 PO (13:51)
[2017-11-17] MEDS ORDERED: DOCU-416 PO (09:40)
[2017-11-17] MEDS ORDERED: MULT-859 PO (09:40)
[2017-11-17] MEDS ORDERED: MAG-66 PO (09:42)
== END 2017-11-16 12:10 ==
LOC: ER 10:24
DX: R45.851 Suicidal ideations (principal); F32.9 Major depressive disorder, single episode, unspecified; F10.229 Alcohol dependence with intoxication, unspecified; R00.1 Bradycardia, unspecified
CPT/HCPCS: 36415; 83735; 84443; 85025; 93005; 99284; G0480; 80305; 80320; 80329; 81001; 82040; 82247; 82310; 82374; 82435; 82565; 82947; 84075; 84132; 84155; 84295; 84450; 84460; 84520

== ENCOUNTER 2017-11-16 11:38 | Inpatient (IN) | payer MEDICARE, OTHER ==
[2017-05-22 07:56] VITALS: BMI 34.2
[2017-11-16] MEDS ORDERED: MAG HYD/AL HYD/SIMETH 30ML UDC PO PRN (11:55)
[2017-11-16] MEDS ORDERED: DIAZEPAM 10 MG TAB PO ONE (13:20)
[2017-11-16] MEDS ORDERED: GABA-549 PO (13:51)
[2017-11-16] MEDS ORDERED: AZELASTINE HCL 137 MCG PRN (14:20)
[2017-11-16 15:10] VITALS: BP 156/72
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
[2017-11-16] MEDS ORDERED: traZODone HCL 50 MG TAB PO SCH (21:00)
[2017-11-16] MEDS ORDERED: DOCUSATE SODIUM 100 MG CAP PO SCH (21:00)
[2017-11-16] MEDS: GABAPENTIN 300 MG CAP PO SCH (21:35)
[2017-11-17 02:23] VITALS: BP 118/66
[2017-11-17] MEDS ORDERED: DIAZEPAM 10 MG TAB PO ONE (06:25)
[2017-11-17 07:35] VITALS: BP 138/72
[2017-11-17] MEDS: GABAPENTIN 300 MG CAP PO SCH (08:19)
[2017-11-17] MEDS ORDERED: FOLIC ACID 1 MG TAB PO SCH (09:00)
[2017-11-17] MEDS ORDERED: FLUTICASONE PROP 0.05% 16 GM ENA PRN (09:00)
[2017-11-17] MEDS ORDERED: MULTIVITAMINS TAB PO SCH (09:00)
[2017-11-17] MEDS ORDERED: PRAVASTATIN SOD 20 MG TAB PO SCH (09:00)
[2017-11-17] MEDS ORDERED: CHOLECALCIFEROL 1000 UNIT TAB PO SCH (09:00)
[2017-11-17] MEDS ORDERED: TESTOSTERONE TOP SCH (09:00)
[2017-11-17] MEDS ORDERED: TAMSULOSIN HCL 0.4 MG CAP PO SCH (09:00)
[2017-11-17] MEDS ORDERED: lamoTRIgine 100 MG TAB PO SCH (09:00)
[2017-11-17] MEDS ORDERED: PARoxetine HCL 20 MG TAB PO SCH (09:00)
[2017-11-17] MEDS ORDERED: MULT-859 PO (09:40)
[2017-11-17] MEDS ORDERED: DOCU-416 PO (09:40)
[2017-11-17] MEDS ORDERED: MAG-66 PO (09:42)
--- NOTE | 2017-11-17 17:12 | DISCHARGE SUMMARY ---
DATE OF ADMISSION: November 16, 2017 DATE OF DISCHARGE: November 17, 2017 ATTENDING PRACTITIONER Swati Arevalo, Psychiatric Nurse Practitioner I met with the patient on the morning of November 17, 2017. REASON FOR ADMISSION This is a 67-year-old male admitted to the unit due to his report of feeling despondent. He had passive suicidal thoughts in light of recent psychosocial stressors including his fourth DUI charge. PHYSICAL EXAMINATION Please see emergency room note for complete review of systems. VITAL SIGNS: Vital signs on the day of discharge include temperature 98.3, pulse 53, blood pressure 138/72, pulse oximetry 94% on room air. GENERAL: He denies any withdrawal symptoms, and his CIWA scores have remained at zero. LABORATORY DATA Completed prior to admission. CBC and chemistries within normal limits. TSH at 1.39, within normal limits. Acetaminophen level undetectable. Salicylates undetectable. Alcohol was 149 on November 16, 2017, in the morning when admitted. MENTAL STATUS EXAMINATION GENERAL APPEARANCE, BEHAVIOR, AND ATTITUDE: Patient is pleasant and cooperative. He is dressed in hospital scrubs per policy. Grooming appears within normal limits. He appears his stated age. SPEECH: Clear and spontaneous, of normal rate, rhythm, and volume. MOOD: Described as better. AFFECT: Rangeful and appropriate to situation. THOUGHT PROCESSES: Overall logical and goal directed. No loose associations or flight of ideas. THOUGHT CONTENT: Client is denying any suicidal ideations. He is voicing plans for the future. He denies homicidal ideation. He is free of any auditory, visual, or other hallucinations. SENSORIUM: Clear. COGNITION: Alert and oriented to person, place, time, and situation. MEMORY: Immediate, recent, and remote are estimated intact. INTELLIGENCE: Average based upon interview. INSIGHT AND JUDGMENT: Good at this time. TREATMENT Patient received his usual medications, He participated in evaluation and individual and group therapy and education. He was monitored per the CIWA protocol, and he denied any withdrawal symptoms. HOSPITAL COURSE Patient was pleasant and cooperative throughout his stay. No new medications were initiated. Patient did not exhibit withdrawal symptoms. He reports that he drank one day prior to admission, and he had otherwise been sober for three months. Patient did have contact with his family during his stay as his sister is coming to town to stay with him as he is having surgery on Sunday morning. CONDITION OF PATIENT ON DISCHARGE Considered stable and of minimal risk to himself and others. Appropriate for continued outpatient management with his psychiatric providers. DISPOSITION Patient was discharged to home. His sister is [facility] him. He is to follow up with Judy Still, Psychiatric Nurse Practitioner, for outpatient medications as scheduled. He is to follow up with [facility]. He will follow up with his primary care provider and surgeon as indicated. DISCHARGE DIAGNOSIS: Adjustment Disorder with Depressed Mood and Anxiety Alcohol Use Disorder, Severe DISCHARGE MEDICATIONS The patient was discharged on the following psychiatric medications: 1. Trazodone 100 mg at bedtime. 2. Lamictal 150 mg daily. 3. Paxil 20 mg daily. He was provided the 24-hour crisis line number should hus symptoms or problems return. The risks, benefits, and alternatives of above discharge plan were discussed with the client. Informed consent was given to proceed with the above discharge plan by this competent patient. RAFA
== END 2017-11-17 11:06 | disposition home or self-care (01) | DRG 882 ==
LOC: BHS 11:38 → UNDOADMIN 11:38 → BHS 12:36
PROVIDERS: ADMIT Psychiatry & Neurology Psychiatry; ATTEND Psychiatry & Neurology Psychiatry
DX: F43.23 Adjustment disorder with mixed anxiety and depressed mood (principal); R45.851 Suicidal ideations; F10.20 Alcohol dependence, uncomplicated; G89.29 Other chronic pain; Y90.6 Blood alcohol level of 120-199 mg/100 ml; F31.9 Bipolar disorder, unspecified; Z96.653 Presence of artificial knee joint, bilateral; Z62.810 Personal history of physical and sexual abuse in childhood; Z81.1 Family history of alcohol abuse and dependence; Z81.8 Family history of other mental and behavioral disorders; Z90.49 Acquired absence of other specified parts of digestive tract; Z88.1 Allergy status to other antibiotic agents

== ENCOUNTER → 2017-11-16 | Outpatient (CLI) | payer MEDICARE, OTHER ==
[2017-05-22 07:56] VITALS: BMI 34.2
[~2017-11-16] MED LIST changes: +DOCU-416 PO; +GABA-549 PO; +MAG-66 PO; +MULT-859 PO
== END ==
LOC: AMB 09:48
PROVIDERS: ATTEND Nurse Practitioner
DX: R45.851 Suicidal ideations (principal)
CPT/HCPCS: A0425; A0429

== ENCOUNTER → 2017-11-19 | Day surgery (SDC) | payer MEDICARE, OTHER ==
[2017-05-22 07:56] VITALS: Ht 170.2 cm; Wt 89.8 kg
[~2017-11-19] VITALS: Ht 170.2 cm; Wt 89.8 kg
[~2017-11-19] MED LIST changes: +ACETAMINOPHEN 500 MG TAB PO ONE; +DOCU-416 PO; +FAMOTIDINE 20 MG TAB PO ONE; +GABA-549 PO; +LIDOCAINE/SOD BICARB 8.4% SYR ID ONE; +MAG-66 PO; +MIDAZOLAM 2 MG/2 ML VIAL IVP PRN; +MULT-859 PO; +NORMOSOL R SOLN(*) 1000 ML BAG 1,000 ML IV PRN; +PREGABALIN 150 MG CAPSULE PO ONE; +ceFAZolin(*) 2GM/D5W 50ML 50 ML IVPB ONE
[2017-11-19 09:28] VITALS: BP 150/83
== END ==
LOC: OR 00:44
PROVIDERS: ATTEND Orthopaedic Surgery
DX: Z02.9 Encounter for administrative examinations, unspecified (principal)
CPT/HCPCS: 36415; 86850; 86900; 86901; A9270; G0480; 80320

== ENCOUNTER 2017-12-26 00:37 | Inpatient (IN) | payer MEDICARE, OTHER ==
[2017-12-26] VITALS (11 sets, daily range): BP systolic 86–150; BP diastolic 57–93
[~2017-12-26] VITALS: Ht 167.6 cm; Wt 89.8 kg
[~2017-12-26 00:37] MED LIST changes: -ACETAMINOPHEN 500 MG TAB PO ONE; -FAMOTIDINE 20 MG TAB PO ONE; -HYDR-4309 PO; +HYDR-653 PO; -LIDOCAINE/SOD BICARB 8.4% SYR ID ONE; -MIDAZOLAM 2 MG/2 ML VIAL IVP PRN; -NORMOSOL R SOLN(*) 1000 ML BAG 1,000 ML IV PRN; -PREGABALIN 150 MG CAPSULE PO ONE; -ceFAZolin(*) 2GM/D5W 50ML 50 ML IVPB ONE
[2017-12-26] MEDS: PREGABALIN 150 MG CAPSULE PO ONE ×2 (07:29→07:31)
[2017-12-26] MEDS ORDERED: fentaNYL CITR 250 MCG/5 ML AMP ONE (07:45)
[2017-12-26] MEDS ORDERED: LIDOCAINE MPF 1% 5 ML VIAL ONE (07:46)
[2017-12-26] MEDS ORDERED: PROPOFOL EMUL(*) 10MG/ML 20 ML 20 ML ONE (07:46)
[2017-12-26] MEDS ORDERED: ONDANSETRON 4 MG/2 ML VIAL ONE (07:46)
[2017-12-26] MEDS ORDERED: PROPOFOL EMUL(*) 10MG/ML 20 ML 60 ML ONE ×3 (08:19→11:55)
[2017-12-26] MEDS ORDERED: REMIFENTANIL HCL 1 MG VIAL ONE ×3 (08:23→12:00)
[2017-12-26] MEDS ORDERED: FAMOTIDINE 20 MG TAB PO ONE (08:25)
[2017-12-26] MEDS ORDERED: LIDOCAINE/SOD BICARB 8.4% SYR ID ONE (08:25)
[2017-12-26] MEDS ORDERED: ACETAMINOPHEN 500 MG TAB PO ONE (08:25)
[2017-12-26] MEDS ORDERED: NORMOSOL R SOLN(*) 1000 ML BAG 1,000 ML IV PRN (08:25)
[2017-12-26] MEDS ORDERED: ceFAZolin(*) 2GM/D5W 50ML 50 ML IVPB ONE (08:25)
[2017-12-26] MEDS ORDERED: MIDAZOLAM 2 MG/2 ML VIAL IVP PRN (08:25)
[2017-12-26] MEDS ORDERED: KETAMINE HCL 200 MG/20 ML MDV ONE (08:31)
[2017-12-26] MEDS ORDERED: ROPIVACAINE 0.2% 20 ML VIAL ONE (09:10)
[2017-12-26] MEDS ORDERED: THROMBIN (BOVINE) 20,000 UNIT VIAL ONE (09:10)
[2017-12-26] MEDS ORDERED: ROCURONIUM BROM 10 MG/ML 10 ML ONE (09:30)
[2017-12-26] MEDS ORDERED: HYDROmorphone HCL 2 MG/ML SDV ONE (09:47)
[2017-12-26] MEDS ORDERED: SUGAMMADEX SOD 200 MG/2 ML SDV ONE (09:59)
[2017-12-26] MEDS ORDERED: PROPOFOL EMUL(*) 10MG/ML 20 ML 40 ML ONE (12:29)
--- NOTE | 2017-12-26 13:30 | RADIOLOGY IMAGING REPORT ---
FACILITY: [facility] PATIENT NAME: Chava Peck : 1950 MR: [id number] V: [id number] EXAM DATE: ORDERING PHYSICIAN: LC MAZNO TECHNOLOGIST: [place] [facility] [place] : 1950 Visit/Account:[id number] Date of Sevice: 12/26/2017 Exam type: LUMBAR SPINE 1 VIEW History: L3-L5 DISC HERNIATION/FUSION Comparison: None. Findings: Two cross table lateral prone intraoperative views of the lumbar spine demonstrate postsurgical sun es from posterior lumbar interbody fusion at L3-4, L4-5 and L5-S1 IMPRESSION: 1. As above Report Dictated By: Lala Morton MD at 12/26/2017 1:25 PM Report E-Signed By: Lala Morton MD at 12/26/2017 1:26 PM WSN:[id number]
[2017-12-26] MEDS ORDERED: fentaNYL CITR 100 MCG/2 ML AMP ONE ×2 (13:42→14:23)
[2017-12-26] MEDS ORDERED: LR(*) 1000 ML BAG 1,000 ML IV PRN (14:40)
[2017-12-26] MEDS ORDERED: ONDANSETRON 4 MG/2 ML VIAL IVP PRN (14:40)
[2017-12-26] MEDS ORDERED: FLUSH 10 ML SYR IVP PRN (14:40)
[2017-12-26] MEDS ORDERED: ACETAMINOPHEN 500 MG TAB PO PRN (14:40)
[2017-12-26] MEDS ORDERED: BENZOCAINE/MENTHOL 1 EACH LOZG PO PRN (14:40)
[2017-12-26] MEDS ORDERED: BISACODYL 10 MG SUPP PR PRN (14:40)
[2017-12-26] MEDS ORDERED: diphenhydrAMINE 25 MG CAP PO PRN (14:40)
[2017-12-26] MEDS ORDERED: ACETAMINOPHEN(*)1000 MG/100 ML 100 ML IVPB PRN (14:40)
[2017-12-26] MEDS ORDERED: oxyCODONE HCL 5 MG CAP PO PRN (14:40)
--- NOTE | 2017-12-26 15:11 | OPERATIVE REPORT 1 ---
EVENT DATE: December 26, 2017 SURGEON: Chris Santacruz MD ANESTHESIOLOGIST: Leonel Gary MD ANESTHESIA: General endotracheal anesthesia. OPTOMETRIST PRESIDENT/PRACTICE OWNER: ZULEMA Juarez PREOPERATIVE DIAGNOSIS Lumbar spinal stenosis with L3-L4 and L4-L5 spondylolisthesis. POSTOPERATIVE DIAGNOSIS Lumbar spinal stenosis with L3-L4 and L4-L5 spondylolisthesis. PROCEDURE PERFORMED L2 to L5 laminectomy with L3 to L5 posterolateral instrumented fusion. INTRAVENOUS FLUIDS 2100 mL ESTIMATED BLOOD LOSS 250 mL IMPLANTS USED Relign pedicle screws 6.5 mm x 45 mm from [employer] times six, 70 mm x 5.5 mm connecting rods from [employer] times two, locking caps from [employer] times six. SPECIMENS None. DRAINS A 10 mm flat Rob-Mcdaniel drain from the lower back. COMPLICATIONS None. DISPOSITION Post-anesthesia care unit. INDICATIONS FOR SURGERY Mr. Peck is a 67-year-old gentleman who presented to my clinic with a complaint of radiating pain, numbness, and tingling down the right greater than the left lower extremity both in an L4 and an L5 distribution. In addition to this, he noted weakness in the lower extremities and a significant decrease in walking tolerance secondary to having tired legs. His physical examination was essentially normal, but his imaging studies showed severe spinal stenosis at L3- L4 and L4-L5 with moderate stenosis at the L2-L3. There was also an anterolisthesis of L3 on L4 and L4 on L5. Secondary to ongoing symptoms and failure of physical therapy, medications, injections, activity modifications, etc., Mr. Peck was offered and elected to undergo L2 to L5 laminectomy with L3 to L5 posterolateral instrumented fusion. Prior to surgery, I explained in detail to the patient the possible risks of surgery. These risks include bleeding, infection, damage to surrounding structures, nerve root injury, spinal fluid leak, meningitis, persistent and/or worsening pain, need for further surgery, , blindness, sexual dysfunction, autonomic nervous system dysfunction, and other unforeseen medical and surgical complications. An understanding that in general spinal surgery is more predictive at improving extremity discomfort than axial spine pain was stressed. DESCRIPTION OF PROCEDURE On the date of surgery, the patient was met in the preoperative hold area, and all questions were answered. His operative site was identified and marked by myself. He was brought to the operating room, and after succumbing to anesthesia, was positioned in the prone position on a Rob table. All bony protuberances and soft tissues were well padded in the standard fashion. Care was taken to maintain appropriate perfusion pressures during anesthesia. Preoperative antibiotics were administered according to the appropriate timing schedule. At the conclusion of the procedure, sponge and needle counts were correct times two. A final timeout was undertaken by members of the operating team to confirm correct patient, correct levels, and correct surgery. An incision was then made down the midline over the intended spinal levels, and sharp dissection was carried out down to the posterior elements. Posterior soft tissues were elevated off the posterior elements of the spine in a subperiosteal manner, and a lateral radiograph was obtained to confirm appropriate spinal levels. We then cleared soft tissues off the laminae of L2, L3, L4, and L5, and then exposed out to the tips of the transverse processes of L3, L4, and L5. We then packed the lateral gutters with thrombin-soaked Ray-Marlee sponges. Spinous processes of L2, L3, and L4 were removed with a combination of a Le[place]ell rongeur and the [employer] [place] bone cutter. The laminae were thinned down the midline with a Leksell rongeur. The spinal canal was then entered by using a Romero curette to undermine the superior insertion of the ligamentum flavum from the inferior aspect of the L4 lamina. A Dre elevator was used to separate any dural adhesions from surrounding bone and soft tissue prior to use of the Kerrison punch. A 4 mm Kerrison punch was used to perform a midline decompression of the L4, L3, and L2 laminae. I then performed bilateral lateral recess decompressions again using a combination of #3 and #4 Kerrison rongeurs. We took out a significant amount of overgrown facet as well as thickened ligamentum flavum at all three levels. Once this was completed, a Dre elevator was used to check the lateral recesses as well as the foramina of each involved nerve root to ensure adequate decompression. Once this was complete, we utilized liquid Gelfoam and patties to control bleeding in the laminectomy defect. Attention was then turned to placement of pedicle screws. Starting points for pedicle screws were identified at approximately the junction of the pars interarticularis, the midpoint of the transverse process, and the lateral aspect of the facet joint. A high-speed devonte was then used to decorticate the starting point, and then a Lenke-type probe was advanced against resistance through the isthmus of the pedicle. A ball-tip feeler was used to confirm absence of bony breaching, palpating superiorly, inferiorly, medially, and laterally, as well as distally to confirm absence of bony breaching. We chose 6.5 mm x 45 mm screws and placed screws bilaterally at L3, L4, and L5. After placement of each screw, it was tested with neurophysiologic monitoring to confirm absence of bony breaching, and all screws tested well above accepted levels. We then selected 70 mm connecting rods, and after lining up the tulips on all of the screws, placed those connecting rods, and performed a reduction maneuver of the L4 vertebra, pulling it posteriorly to align all three vertebrae up. Locking caps were placed and tightened and then finally tightened using the torque-limiting device. A lateral radiograph was obtained that showed excellent placement of the instrumentation. A high-speed devonte was then used to decorticate the transverse processes of L3, L4, and L5. Local bone from the laminectomy had previously been run through a bone mill and was packed in the lateral gutters. Once this was accomplished, the retractors were removed, and the wound was closed in layers using interrupted sutures for the deep fascia, inverted interrupted sutures for the subcutaneous tissue, and then a running subcuticular skin stitch. Sponge and needle counts were correct times two. A 10 mm flat Rob-Mcdaniel drain as left deep to the fascia. POSTOPERATIVE CARE PLAN The patient will remain in the hospital until he meets discharge criteria. He will follow up in my clinic in two weeks' time for wound check and examination. RAFA
[2017-12-26] MEDS ORDERED: FLUTICASONE PROP 0.05% 16 GM ENA PRN (15:35)
--- NOTE | 2017-12-26 15:45 | Hospitalist Consultation ---
History of Present Illness Requesting Physician Dr. Santacruz Reason for Consult Medical Management Chief Complaint s/p lumbar fusion History of Present Illness He was admitted s/p lumbar fusion. It is reported the surgery went well and without complication. History Problems: (1) Bipolar disorder Status: Chronic (2) BPH (benign prostatic hyperplasia) Status: Chronic (3) Depression Status: Chronic Home Meds Reported Medications Lamotrigine (LAMOTRIGINE) 100 Mg Tablet, 100 MG PO DAILY 12/19/17 Docusate Sodium (COLACE) 100 Mg Capsule, 100 MG PO QHS, CAPSULE 11/17/17 Multivits,Ca,Minerals/Iron/Fa (THERA-M TABLET) 1 Each Tablet, 1 EACH PO DAILY 11/17/17 Gabapentin (GABAPENTIN) 300 Mg Capsule, 300 MG PO TID, CAPSULE 11/16/17 Paroxetine Hcl (PAXIL) 20 Mg Tablet, 20 MG PO QDAY, TAB 11/01/16 Folic Acid (FOLIC ACID) 1 Mg Tablet, 1 MG PO QDAY, TAB 11/01/16 TESTOSTERONE 1.62% Topical Gel (ANDROGEL 1.62% Topical Gel) 1.25 Gm Gel.packet, 50 MG TOP QDAY 08/24/16 Cholecalciferol (Vitamin D3) (VITAMIN D3) 1,000 Unit Tablet, PO DAILY, TAB 06/29/16 Fluticasone Prop 50 Mcg Ns (FLONASE 50 MCG NS) 16 Gm [place].susp, 1 SPRAY INH PRN, BOT 06/29/16 Tamsulosin Hcl (FLOMAX) 0.4 Mg Cap.er.24h, 0.4 MG PO QDAY, CAP 05/29/16 Pravastatin Sodium (PRAVASTATIN SODIUM) 40 Mg Tablet, 1 TAB PO QDAY 05/29/16 Trazodone Hcl (TRAZODONE HCL) 100 Mg Tablet, 100 MG PO QHS, TAB 05/29/16 Discontinued Reported Medications Mag Hydrox/Al Hydrox/Simeth (MAALOX MAXIMUM STRENGTH SUSP) 355 Ml Oral.susp, 30 ML PO Q4H PRN for DYSPEPSIA 11/17/17 Lamotrigine (LAMICTAL) 150 Mg Tablet, 150 MG PO QDAY 11/01/16 Hydrocodone Bit/Acetaminophen (HYDROCODON-ACETAMINOPHEN 5-325) 1 Each Tablet, 1 EACH PO PRN for PAIN, TAB 08/24/16 Azelastine Hcl 0.1% [place] (AZELASTINE HCL 0.1% SPRAY) 137 Mcg/0.137 Ml [place].pump, 137 MCG NS PRN, SPRAY 06/29/16 Allergies: Coded Allergies: clindamycin (Verified Allergy, Intermediate, WIDE SPREAD RASH AND SOB, 12/19/17) Hx Smoking: No Smoking Status: Never Smoker Exposure to Second Hand Smoke?: No Caffeine Intake: Coffee Caffeine/Cups Per Day: 1 Hx Alcohol Use: Yes When Quit Alcohol?: 12/13/17 Hx Substance Use Disorder: No Social Drug Use: Never Review of Systems All Systems Reviewed/Normal: Yes, Except as Noted Exam Vital Signs Vital Signs Date Time Temp Pulse Resp B/P (MAP) Pulse Ox O2 Delivery O2 Flow Rate FiO2 12/26/17 15:17 97.5 61 16 141/89 (106) 96 Nasal Cannula 2.0 General Appearance: Alert, Awake, No Acute Distress, Afebrile Neuro: No Gross deficits Cardiovascular: Regular Rate and Rhythm Respiratory: No Respiratory Distress, Clear to Auscultation GI: Abd Soft and Non-Tender Psych: Alert & Oriented X3, Appropriate Mood & Affect Assessment and Plan Problems: (1) S/P lumbar fusion Status: Acute Assessment & Plan: Followed by Dr. Santacruz. (2) Bipolar disorder Status: Chronic Assessment & Plan: He is on chronic treatment with Lamotrigine and Trazodone. (3) Depression Status: Chronic Assessment & Plan: He is on chronic treatment with paroxetine. (4) BPH (benign prostatic hyperplasia) Status: Chronic Assessment & Plan: He is on chronic treatment with Flomax. (5) Hyperlipemia Status: Chronic Assessment & Plan: He is on chronic treatment with Pravastatin. (6) History of alcohol abuse Status: Chronic Assessment & Plan: He will be placed on CIWA. He has a history of alcohol use. Venous Thromboembolism Antithrombotics Is Pt On Any Antithrombotics?: No JATIN MONDRAGON Dec 26, 2017 15:45
[2017-12-26] MEDS: APAP/HYDROCODONE 325/5 TAB PO PRN ×2 (16:01→21:10)
[2017-12-26] MEDS: ceFAZolin(*) 2GM/D5W 50ML 50 ML IVPB SCH (17:16)
[2017-12-26] MEDS: HYDROmorphone HCL 2 MG/ML SDV IVP PRN ×2 (18:35→22:27)
[2017-12-26] MEDS: traZODone HCL 50 MG TAB PO SCH (20:59)
[2017-12-26] MEDS: GABAPENTIN 300 MG CAP PO SCH (20:59)
[2017-12-26] MEDS: DOCUSATE SODIUM 100 MG CAP PO SCH (21:00)
[2017-12-26] MEDS: DIAZEPAM 5 MG TAB PO PRN (21:00)
[2017-12-26] MEDS ORDERED: DOCUSATE SODIUM 100 MG CAP PO SCH (21:00)
[2017-12-27] MEDS: ceFAZolin(*) 2GM/D5W 50ML 50 ML IVPB SCH ×2 (01:22→09:42)
[2017-12-27 03:15] VITALS: BP 132/87
[2017-12-27] MEDS: DIAZEPAM 5 MG TAB PO PRN (05:14)
[2017-12-27 07:29] VITALS: BP 125/78
--- NOTE | 2017-12-27 07:47 | Hospitalist Progress Note ---
Subjective Progress Notes Subjective He denies any current complaints. Pain has been well controlled. Apparently, he had some urinary retention and had Rodriguez cath placed. Physical Exam Vital Signs Date Time Temp Pulse Resp B/P (MAP) Pulse Ox O2 Delivery O2 Flow Rate FiO2 12/27/17 07:29 99.2 82 18 125/78 (94) 91 Nasal Cannula 1.0 Intake and Output 12/27/17 07:00 Intake Total 4450 ml Output Total 2400 ml Balance 2050 ml Intake Oral 1400 ml IV Total 3050 ml Output Urine Total 1425 ml Drainage Total 660 ml Estimated Blood Loss 250 ml Other 65 ml General Appearance: Alert, Awake Cardiovascular: Regular Rate and Rhythm Respiratory: Clear to Auscultation Assessment and Plan Problems: (1) S/P lumbar fusion Status: Acute Assessment & Plan: He appears stable post-op. As per Dr. Santacruz. (2) Bipolar disorder Status: Chronic Assessment & Plan: He is on chronic treatment with Lamotrigine and Trazodone. (3) Depression Status: Chronic Assessment & Plan: He is on chronic treatment with paroxetine. (4) BPH (benign prostatic hyperplasia) Status: Chronic Assessment & Plan: He has been on chronic treatment with Flomax. He did have Rodriguez cath placed for some urinary retention. Will remove cath and do a trial of voiding. (5) Hyperlipemia Status: Chronic Assessment & Plan: He is on chronic treatment with Pravastatin. (6) History of alcohol abuse Status: Chronic Assessment & Plan: No evidence of withdrawal at this time. He is on CIWA. He has a history of alcohol use. Exam Sepsis Risk: No Definite Risk LETICIA BOGGS MD Dec 27, 2017 07:47
[2017-12-27] MEDS: TAMSULOSIN HCL 0.4 MG CAP PO SCH (08:26)
[2017-12-27] MEDS: GABAPENTIN 300 MG CAP PO SCH ×3 (08:27→21:10)
[2017-12-27] MEDS: PARoxetine HCL 20 MG TAB PO SCH (08:27)
[2017-12-27] MEDS: lamoTRIgine 100 MG TAB PO SCH (08:27)
[2017-12-27] MEDS: APAP/HYDROCODONE 325/5 TAB PO PRN ×3 (08:27→18:52)
[2017-12-27] MEDS: FOLIC ACID 1 MG TAB PO SCH (08:27)
[2017-12-27] MEDS: DOCUSATE SODIUM 100 MG CAP PO SCH ×2 (08:27→21:09)
[2017-12-27] MEDS: PRAVASTATIN SOD 20 MG TAB PO SCH (08:27)
[2017-12-27] MEDS: HYDROmorphone HCL 2 MG/ML SDV IVP PRN (08:37)
--- NOTE | 2017-12-27 09:52 | RADIOLOGY IMAGING REPORT ---
FACILITY: [facility] PATIENT NAME: Chava Peck : 1950 MR: [id number] V: [id number] EXAM DATE: ORDERING PHYSICIAN: LC MANZO TECHNOLOGIST: Location: [facility] Patient: Chava Peck : 1950 Visit/Account:[id number] Date of Sevice: 12/27/2017 Exam type: LUMBAR SPINE 2 OR 3 VIEW History: post l fusion Comparison: Intraoperative views lumbar spine December 26, 2017. Findings: AP and lateral views lumbar spine were submitted. There is a dextro convex curvature to the lumbar s pine which could be positional. There post surgical changes from posterior lumbar interbody fusion a t L3-4 and L4-5. The vertebral bodies appear unchanged in alignment. A drain projects over the dors al soft tissues. Incidentally noted is moderate distention of several small bowel loops which may be related to an ileus IMPRESSION: 1. Postsurgical changes from posterior lumbar interbody fusion at L3-4 and L4-5 Moderately distended loops of small bowel which may be related to a postoperative ileus Report Dictated By: Lala Morton MD at 12/27/2017 9:45 AM Report E-Signed By: Lala Morton MD at 12/27/2017 9:47 AM WSN:[email or web address]
[2017-12-27 11:03] VITALS: BP 107/70
[2017-12-27] MEDS: HYDROCORTISONE 1% CR 28.35 GM TP SCH ×2 (13:49→21:10)
[2017-12-27] MEDS: MAGNESIUM HYDROXIDE* 30ML UDCP PO PRN (13:58)
[2017-12-27 15:03] VITALS: BP 121/68
--- NOTE | 2017-12-27 15:40 | CONSULTATION ---
EVENT DATE: December 26, 2017 REASON FOR CONSULTATION Rodriguez catheter placement. BRIEF CLINICAL COURSE The patient is a 67-year-old gentleman recently status post spinal surgery. Apparently, difficulty was encountered in placing the Rodriguez catheter perioperatively, and so the catheterization was aborted and the spinal surgery commenced. Here in the PACU, the patient is extubated, but is not alert. He is still emerging from anesthesia. PHYSICAL EXAMINATION ABDOMEN: Soft. The bladder is not palpable. GENITOURINARY: The phallus is normal. The testes are descended bilaterally. PROCEDURE I was able to place a 16-Hebrew coude catheter into the bladder without difficulty and drain 450 mL of clear urine. The catheter was connected with a catheter securing device to his right thigh. ASSESSMENT AND PLAN I do not think there was significant lower urinary tract trauma, and I think the Rodriguez catheter can be removed per the standard postoperative orthopedic protocol. RAFA
[2017-12-27 16:34] VITALS: Ht 167.6 cm; Wt 89.8 kg
[2017-12-27 20:48] VITALS: BP 157/84
[2017-12-27] MEDS: traZODone HCL 50 MG TAB PO SCH (21:10)
[2017-12-27 23:12] VITALS: BP 128/72
[2017-12-28] VITALS (10 sets, daily range): BP systolic 93–185; BP diastolic 53–102
[2017-12-28] MEDS: DIAZEPAM 5 MG TAB PO PRN (07:38)
[2017-12-28] MEDS ORDERED: hydrALAZINE HCL 20 MG/ML VIAL IVP PRN (07:40)
--- NOTE | 2017-12-28 07:49 | Hospitalist Progress Note ---
Subjective Progress Notes Subjective 67M admitted for laminectomy for spinal stenosis. Nursing reports some confusion/agitation overnight, this am appears reasonably clear headed. Progressing with PT. Patient Complains of: Musculoskeletal: Impaired Mobility (reports bilateral buckling of legs) Physical Exam Vital Signs Date Time Temp Pulse Resp B/P (MAP) Pulse Ox O2 Delivery O2 Flow Rate FiO2 12/28/17 07:18 185/102 (129) 12/28/17 07:03 99.3 100 16 92 Room Air 12/28/17 03:26 2.0 Intake and Output 12/28/17 07:00 Intake Total 413 ml Output Total 1765 ml Balance -1352 ml Intake Oral 360 ml IV Total 53 ml Output Urine Total 1425 ml Drainage Total 340 ml # Voids 7 # Bowel Movements 2 General Appearance: Alert, Awake, No Acute Distress Neuro: No Gross deficits Eyes: PERRLA ENT: Normal Neck: No Masses Cardiovascular: Normal Rhythm & Peripheral Pulses Respiratory: No Respiratory Distress GI: Soft and Non-Tender Extremities: Soft and Non Tender, Warm, Pulses, Perfused; No Edema Integumentary: Skin Intact without Lesion / Mass Assessment and Plan Problems: (1) S/P lumbar fusion Status: Acute Assessment & Plan: He appears stable post-op. As per Dr. Santacruz. (2) Bipolar disorder Status: Chronic Assessment & Plan: He is on chronic treatment with Lamotrigine and Trazodone. (3) Depression Status: Chronic Assessment & Plan: He is on chronic treatment with paroxetine. (4) BPH (benign prostatic hyperplasia) Status: Chronic Assessment & Plan: He has been on chronic treatment with Flomax. He did have Rodriguez cath placed for some urinary retention. Voiding after Rodriguez removed. (5) Hyperlipemia Status: Chronic Assessment & Plan: He is on chronic treatment with Pravastatin. (6) History of alcohol abuse Status: Chronic Assessment & Plan: Some hypertension and mild tachycardia. He is on CIWA. He has a history of alcohol use. Exam Sepsis Risk: No Definite Risk DILL JODY LEPE DO Dec 28, 2017 07:49
[2017-12-28] MEDS ORDERED: DIAZEPAM 10 MG TAB PO PRN (08:35)
[2017-12-28] MEDS: DIAZEPAM 10 MG TAB PO PRN ×2 (08:59→10:24)
[2017-12-28] MEDS: FOLIC ACID 1 MG TAB PO SCH (08:59)
[2017-12-28] MEDS: DOCUSATE SODIUM 100 MG CAP PO SCH ×2 (08:59→21:00)
[2017-12-28] MEDS: PRAVASTATIN SOD 20 MG TAB PO SCH (08:59)
[2017-12-28] MEDS: lamoTRIgine 100 MG TAB PO SCH (08:59)
[2017-12-28] MEDS: TAMSULOSIN HCL 0.4 MG CAP PO SCH (08:59)
[2017-12-28] MEDS: GABAPENTIN 300 MG CAP PO SCH ×3 (08:59→21:00)
[2017-12-28] MEDS: PARoxetine HCL 20 MG TAB PO SCH (08:59)
[2017-12-28] MEDS: HYDROCORTISONE 1% CR 28.35 GM TP SCH ×3 (09:00→21:00)
[2017-12-28] MEDS ORDERED: OLANZapine ZYDIS ODT 5MG TABDP PO PRN (12:30)
--- NOTE | 2017-12-28 12:36 | Miscellaneous Provider Note ---
Miscellaneous Provider Note Note The patient has told staff that he is wanting to leave the hospital today. I have gone in two times to explain that he needs to stay at least tonight because he has a drain in place and needs to be seen tomorrow by Dr. Santacruz. He thought he was on ECF and reported that his IV has been in place for 2 days. Staff is concerned that he is withdrawing from alcohol, but he reports that his last drink was months ago. I told the patient that he needs to stay in the hospital and that if he tries to leave, then I am obligated to emergently detain him because I don't think he is able to make medical decisions at this time. On my last visit, he had a friend with him who was encouraging him to stay. He is tachycardic, anxious and was hypertensive. He is being assessed with CIWA and scoring high enough to require treatment with Valium, which he is getting. A complicating factor is that he is bipolar. He has been restarted on his medication. Will give Zyprexa prn. EFRAIN PABLO MD Dec 28, 2017 12:36
[2017-12-28] MEDS ORDERED: OLANZapine 10 MG VIAL IM ONLY ONE ×2 (13:08→13:10)
[2017-12-28] MEDS ORDERED: WATER STERILE 10 ML VIAL IM ONLY PRN (13:10)
[2017-12-28] MEDS ORDERED: WATER STERILE(*) 10 ML VIAL 10 ML ONE (13:10)
--- NOTE | 2017-12-28 13:30 | Miscellaneous Provider Note ---
Miscellaneous Provider Note Note The patient attempted to leave. He is confused to place, date and doesn't understand the severity of the consequences of his actions on his medical health. We had to emergently detain him. I spoke with his sister (Kasie Peck, who's name is on the chart for contact). She has been updated on the detainment and is in agreement. She thinks that he is still drinking alcohol and reports that he has been in treatment numerous times. EFRAIN PABLO MD Dec 28, 2017 13:30
[2017-12-28] MEDS: LORazepam 2 MG/ML VIAL IVP PRN ×2 (14:01→14:37)
--- NOTE | 2017-12-28 18:01 | [facility] - Psychiatric Evaluation ---
ER - Title 25 MHE Evaluation Title 25 Evaluation Patient Detained By: Physician (Dr. Agustin Haynes) Referral Source: Professional: Hospitalist, Dr. Agustin Cadet Date Patient Detained: Dec 28, 2017 Time Patient Detained: 13: Date Nursing Home Expires: Jan 02, 2018 Time Nursing Home Expires: : Legal Status: Police Hold: No Legal Status: Residence: [facility] Resident, State Resident Assessment Data Provided By: Other Provider (Patient's nurse), Other Source ([facility] Physician) HPI/ROS: Per Dr. Agustin Goff, "The patient has told staff that he is wanting to leave the hospital today. I have gone in two times to explain that he needs to stay at least tonight because he has a drain in place and needs to be seen tomorrow by Dr. Santacruz. He thought he was on ECF and reported that his IV has been in place for 2 days. Staff is concerned that he is withdrawing from alcohol, but he reports that his last drink was months ago. I told the patient that he needs to stay in the hospital and that if he tries to leave, then I am obligated to emergency detain him because I don't think he is able to make medical decisions at this time. On my last visit, he had a friend with him who was encouraging him to stay. He is tachycardic, anxious and was hypertensive. He is being assessed with CIWA and scoring high enough to require treatment with Valium, which he is getting. A complicating factor is that he is bipolar. He has been restarted on his medication. Will give Zyprexa (antipsychotic). He is confused to place, date and doesn't understand the severity of the consequences of his actions on his medical health. We had to emergency detain him. I spoke with his sister (Kasie Peck, who's name is on the chart for contact). She has been updated on the detainment and is in agreement. She thinks that he is still drinking alcohol and reports that he has been in treatment numerous times." Admit due to SI or Attempt: No Suicide Plan: No Plan Current Suicide Plan Denies Alcohol or Drugs Involved: Yes (Alcohol) Is Patient Info Reliable: No (Patient says he is not drinking, but he is requiring safe medical withdrawl to prevent possible seizures or commonly associated with an unsafe withdrawal from alcohol.) Is Collateral Info Reliable: Yes (Physician and nurses) Current Home Psych Meds: Zyprexa Mental Status Exam General Appearance: Unkept Speech: Other (Patient is very sleepy at this time.) Mood: Other (patient is upset and frustrated.) Affect: Other (Patient is very sleepy at this time.) Thought Process: Other (Patient is very sleepy at this time.) Thought Content: Suicidal Ideation (denies) Cognition: Alert & Oriented-Person; No Alert & Oriented-Place, No Alert & Oriented-Time, No Bmjxe-Udrbiqhm-Xbaevaqgk Memory: Other (Memory problems, likely associated with drinking.) Insight Judgment: Poor Sleep: Hypersomnia Hallucinations: Denies Delusions: Denies Current Risk & History Current Dangerous Risk Assessm: Self-Injurious Behaviors, Ubable to Care for Self Past Dangerous Risk Assessm: Suicide Ideation-last 6mo (Denies) Prior Alcohol/Drug Abuse Past unsafe alcoholism documented. Previous Suicide Attempt: Past - Low Lethality (Previous [facility] psychiatric hospitalization. ) Previous Psychiatric Illness: Yes (Bipolar Mood) Previous Diagnosis/Treatment: [facility] hospitalization Previous Psychiatric Treatment: Yes Risk Assessment & Disposition Evaluated Risk Assessment: Patient is critically dangerous to himself at this time. With his recent surgery, being unsteady on his feet, agitation, going through alcohol withdrawal, and not oriented to place and situation, he is at high risk of further decompensation or loss of life. Impression: Primary Impression: Alcohol intoxication Additional Impressions: Depression with suicidal ideation Depression Bipolar disorder Meets Mental Illness Req.: Yes Meets Dangerousness Req.: Yes Emergency Nursing Home to be: Upheld Decision Comment: Patient is critically dangerous to himself at this time. With his recent surgery, being unsteady on his feet, agitation, going through alcohol withdrawal, and not oriented to place and situation, he is at high risk of further decompensation or loss of life. Date of Decision: Dec 28, 2017 Time of Decision: 18:00 Patient is Medically Stable at: Yes Disposition: Transfer (Currently patient is on Med[facility]Surg [facility] floor [facility] Problem Qualifiers ALONZO AVALOS LPC Dec 28, 2017 18:01
[2017-12-28] MEDS: traZODone HCL 50 MG TAB PO SCH (21:00)
[2017-12-29] VITALS (8 sets, daily range): BP systolic 93–111; BP diastolic 55–71
[2017-12-29] MEDS: LORazepam 2 MG/ML VIAL IVP PRN ×7 (00:01→05:53)
--- NOTE | 2017-12-29 09:27 | Hospitalist Progress Note ---
Subjective Progress Notes Subjective He is somewhat sedated this AM. He has had episodic tremulousness, confusion/agitation. Physical Exam Vital Signs Date Time Temp Pulse Resp B/P (MAP) Pulse Ox O2 Delivery O2 Flow Rate FiO2 12/29/17 07:51 98.0 103/68 (80) 12/29/17 07:33 72 12/29/17 07:32 94 Nasal Cannula 1.0 12/29/17 07:05 24 Intake and Output 12/29/17 07:00 Intake Total 240 ml Output Total 140 ml Balance 100 ml Intake Oral 240 ml Drainage Total 140 ml # Voids 4 General Appearance: Other (somewhat sedated, but does awaken to tactile stimuli) Neuro: Other (moves all extremities) Cardiovascular: Regular Rate and Rhythm Respiratory: Clear to Auscultation GI: Soft and Non-Tender Extremities: Warm, Perfused Assessment and Plan Problems: (1) History of alcohol abuse Status: Chronic Assessment & Plan: He appears to have significant withdrawal and has a history of alcohol use. Will continue close monitoring and benzodiazepines as needed. Check labs. (2) S/P lumbar fusion Status: Acute Assessment & Plan: He appears to most likely have alcohol withdrawal post-op, but otherwise appears reasonably stable. As per Dr. Santacruz. (3) Bipolar disorder Status: Chronic Assessment & Plan: He is on chronic treatment with Lamotrigine and Trazodone. Continue same for now. (4) Depression Status: Chronic Assessment & Plan: He is on chronic treatment with paroxetine. (5) BPH (benign prostatic hyperplasia) Status: Chronic Assessment & Plan: He has been on chronic treatment with Flomax. He did have Rodriguez cath placed for some urinary retention. Voiding after Rodriguez removed. (6) Hyperlipemia Status: Chronic Assessment & Plan: He is on chronic treatment with Pravastatin. Exam Sepsis Risk: No Definite Risk LETICIA BOGGS MD Dec 29, 2017 09:27
[2017-12-29] MEDS: GABAPENTIN 300 MG CAP PO SCH ×3 (09:43→21:28)
[2017-12-29] MEDS: PRAVASTATIN SOD 20 MG TAB PO SCH (09:43)
[2017-12-29] MEDS: FOLIC ACID 1 MG TAB PO SCH (09:44)
[2017-12-29] MEDS: DOCUSATE SODIUM 100 MG CAP PO SCH ×2 (09:44→21:28)
[2017-12-29] MEDS: lamoTRIgine 100 MG TAB PO SCH (09:44)
[2017-12-29] MEDS: TAMSULOSIN HCL 0.4 MG CAP PO SCH (09:44)
[2017-12-29] MEDS: HYDROCORTISONE 1% CR 28.35 GM TP SCH ×2 (09:44→23:18)
[2017-12-29] MEDS: PARoxetine HCL 20 MG TAB PO SCH (09:44)
[2017-12-29 10:35] LABS: PLATELET COUNT, AUTOMATED 126 K/uL (150-450)
[2017-12-29] MEDS: D5 1/2 NS(*) 1000 ML BAG 1,000 ML IV PRN (18:01)
--- NOTE | 2017-12-29 19:47 | RADIOLOGY IMAGING REPORT ---
FACILITY: [facility] PATIENT NAME: Chava Peck : 1950 MR: [id number] V: [id number] EXAM DATE: ORDERING PHYSICIAN: LETICIA BOGGS TECHNOLOGIST: Location: [facility] [place] Patient: Chava Peck : 1950 Visit/Account:[id number] Date of Sevice: 12/29/2017 CHEST SINGLE AP Indication: Tachypnea.. Comparison: 08/18/2016. Findings: Cardiac silhouettes upper limits normal for size for the technique. Mediastinal silhouette and pulmon lea vessels within normal limits for the technique. There is no focal infiltrate or lobar consolidation. No pneumothorax or pleural effusion. No nodule. Chronic interstitial changes. Upper abdomen is unremarkable. No acute bony abnormality. Ol d right rib fractures and right clavicular fracture. IMPRESSION: 1. No acute cardiopulmonary process. Report Dictated By: Adriel Anderson at 12/29/2017 7:42 PM Report E-Signed By: Adriel Anderson at 12/29/2017 7:43 PM WSN:[id number]
[2017-12-30 03:13] VITALS: BP 102/59
[2017-12-30] MEDS: D5 1/2 NS(*) 1000 ML BAG 1,000 ML IV PRN (03:48)
[2017-12-30 06:51] LABS: PLATELET COUNT, AUTOMATED 161 K/uL (150-450)
[2017-12-30 07:32] VITALS: BP 130/80
[2017-12-30] MEDS: HYDROCORTISONE 1% CR 28.35 GM TP SCH ×2 (09:19→21:48)
[2017-12-30] MEDS: GABAPENTIN 300 MG CAP PO SCH ×3 (09:19→21:47)
[2017-12-30] MEDS: FOLIC ACID 1 MG TAB PO SCH (09:19)
[2017-12-30] MEDS: PRAVASTATIN SOD 20 MG TAB PO SCH (09:19)
[2017-12-30] MEDS: DOCUSATE SODIUM 100 MG CAP PO SCH ×2 (09:19→21:47)
[2017-12-30] MEDS: TAMSULOSIN HCL 0.4 MG CAP PO SCH (09:19)
[2017-12-30] MEDS: lamoTRIgine 100 MG TAB PO SCH (09:30)
[2017-12-30] MEDS: MAGNESIUM HYDROXIDE* 30ML UDCP PO PRN (09:30)
--- NOTE | 2017-12-30 11:14 | Hospitalist Progress Note ---
Subjective Progress Notes Subjective 67M admitted for laminectomy, Hx of EtOH. Not ambulating well, pending SNF. Still confused at times, some signs w/d. Patient Complains of: Gastrointestinal: No Nausea, No Vomiting Physical Exam Vital Signs Date Time Temp Pulse Resp B/P (MAP) Pulse Ox O2 Delivery O2 Flow Rate FiO2 12/30/17 08:15 Nasal Cannula 1.0 12/30/17 07:32 98.4 76 24 130/80 (97) 95 Intake and Output 12/30/17 06:59 Intake Total 2316 ml Output Total 1490 ml Balance 826 ml Intake Oral 1316 ml IV Total 1000 ml Output Urine Total 1100 ml Drainage Total 390 ml # Voids 4 General Appearance: Alert, Awake, No Acute Distress Neuro: No Gross deficits Eyes: PERRLA ENT: Normal Neck: No Masses Cardiovascular: Normal Rhythm & Peripheral Pulses Respiratory: No Respiratory Distress GI: Soft and Non-Tender Musculoskeletal: No Weakness/Pain Extremities: Soft and Non Tender, Warm, Pulses, Perfused Integumentary: Skin Intact without Lesion / Mass Psych: Other (confused) Result Diagram: 12/30/1760512/30/17605 Assessment and Plan Problems: (1) History of alcohol abuse Status: Chronic Assessment & Plan: Improving, He appears to have significant withdrawal and has a history of alcohol use. Will continue close monitoring and benzodiazepines as needed. No benzoes for approx 24 hours, CIWA increasing again however. (2) S/P lumbar fusion Status: Acute Assessment & Plan: He appears to most likely have alcohol withdrawal post-op, but otherwise appears reasonably stable. As per Dr. Santacruz. (3) Bipolar disorder Status: Chronic Assessment & Plan: He is on chronic treatment with Lamotrigine and Trazodone. Continue same for now. (4) Depression Status: Chronic Assessment & Plan: He is on chronic treatment with paroxetine. (5) BPH (benign prostatic hyperplasia) Status: Chronic Assessment & Plan: He has been on chronic treatment with Flomax. He did have Rodriguez cath placed for some urinary retention. Voiding after Rodriguez removed. (6) Hyperlipemia Status: Chronic Assessment & Plan: He is on chronic treatment with Pravastatin. Exam Sepsis Risk: No Definite Risk DILL JODY LEPE DO Dec 30, 2017 11:14
[2017-12-30 11:30] VITALS: BP 142/86
[2017-12-30 19:59] VITALS: BP 135/81
[2017-12-30] MEDS: APAP/HYDROCODONE 325/5 TAB PO PRN (21:48)
[2017-12-30 23:36] VITALS: BP 147/83
[2017-12-31 04:09] VITALS: BP 117/71
[2017-12-31 07:34] VITALS: BP 122/72
[2017-12-31] MEDS: DOCUSATE SODIUM 100 MG CAP PO SCH ×2 (08:07→21:11)
[2017-12-31] MEDS: FOLIC ACID 1 MG TAB PO SCH (08:07)
[2017-12-31] MEDS: GABAPENTIN 300 MG CAP PO SCH ×3 (08:07→21:11)
[2017-12-31] MEDS: TAMSULOSIN HCL 0.4 MG CAP PO SCH (08:07)
[2017-12-31] MEDS: PRAVASTATIN SOD 20 MG TAB PO SCH (08:07)
[2017-12-31] MEDS: lamoTRIgine 100 MG TAB PO SCH (08:08)
[2017-12-31] MEDS: HYDROCORTISONE 1% CR 28.35 GM TP SCH ×2 (08:08→21:12)
--- NOTE | 2017-12-31 09:35 | Hospitalist Progress Note ---
Subjective Progress Notes Subjective He is awake, alert, and oriented. We had discussion regarding his alcohol use and his plan to help maintain abstinence. Physical Exam Vital Signs Date Time Temp Pulse Resp B/P (MAP) Pulse Ox O2 Delivery O2 Flow Rate FiO2 12/31/17 07:47 92 Room Air 12/31/17 07:34 98.5 69 20 122/72 (89) 12/31/17 04:09 1.0 Intake and Output 12/31/17 07:00 Intake Total 1360 ml Output Total 4485 ml Balance -3125 ml Intake Oral 1360 ml Output Urine Total 4255 ml Drainage Total 230 ml # Voids 3 # Bowel Movements 1 General Appearance: Alert, Awake Cardiovascular: Regular Rate and Rhythm Respiratory: Clear to Auscultation GI: Soft and Non-Tender Extremities: Warm, Perfused Psych: Alert & Oriented X3 Result Diagram: 12/30/1760512/30/17605 Assessment and Plan Problems: (1) History of alcohol abuse Status: Chronic Assessment & Plan: Withdrawal appears to be improved/resolved. He appears to have had significant withdrawal and has a history of alcohol use. He was monitored on the CIWA protocol and did require a couple days of benzodiazepines. He now appears to be doing well. He does have a substance abuse counselor and a "regular" counselor he follows with at [facility] and also uses AA meetings. We do not have any further recommendations regarding his alcohol use. I did emphasize his group home outlook is dependent on his ability to maintain abstinence and follow up closely with his counselors. He reported full understanding of this. (2) S/P lumbar fusion Status: Acute Assessment & Plan: He appears to most likely have had alcohol withdrawal post- op, but otherwise appears stable. As per Dr. Santacruz. (3) Bipolar disorder Status: Chronic Assessment & Plan: He is on chronic treatment with Lamotrigine and Trazodone. No changes. (4) Depression Status: Chronic Assessment & Plan: He is on chronic treatment with paroxetine. (5) BPH (benign prostatic hyperplasia) Status: Chronic Assessment & Plan: He has been on chronic treatment with Flomax. He did have Rodriguez cath placed for some urinary retention. he is voiding well after Rodriguez removed. (6) Hyperlipemia Status: Chronic Assessment & Plan: He is on chronic treatment with Pravastatin. Exam Sepsis Risk: No Definite Risk LETICIA BOGGS MD Dec 31, 2017 09:35
[2017-12-31 14:08] VITALS: BP 119/74
[2017-12-31 19:20] VITALS: BP 136/72
[2017-12-31 22:56] VITALS: BP 132/96
[2017-12-31] MEDS: APAP/HYDROCODONE 325/5 TAB PO PRN (23:00)
[2018-01-01 02:23] VITALS: BP 127/70
--- NOTE | 2018-01-01 06:23 | Hospitalist Progress Note ---
Subjective Progress Notes Subjective He reports doing fairly well, "but I am still weak". Plan is for ongoing rehab on ECF. Physical Exam Vital Signs Date Time Temp Pulse Resp B/P (MAP) Pulse Ox O2 Delivery O2 Flow Rate FiO2 01/01/18 02:23 97.8 66 16 127/70 (89) 96 Nasal Cannula 0.5 Intake and Output 01/01/18 06:59 Intake Total 3404 ml Output Total 1240 ml Balance 2164 ml Intake Oral 3404 ml Output Urine Total 1100 ml Drainage Total 140 ml # Voids 6 # Bowel Movements 1 General Appearance: Alert, Awake Result Diagram: 12/30/1760512/30/17605 Assessment and Plan Problems: (1) History of alcohol abuse Status: Chronic Assessment & Plan: Withdrawal appears to be resolved. He appears to have had significant withdrawal and has a history of alcohol use. He was monitored on the CIWA protocol and did require a couple days of benzodiazepines. He now appears to be doing well. He does have a substance abuse counselor and a "regular" cou nselor he follows with at [facility] and also uses AA meetings. We do not have any further recommendations regarding his alcohol use. I did emphasize his [facility] outlook is dependent on his ability to maintain abstinence and follow up closely with his counselors. He reported full understanding of this. (2) S/P lumbar fusion Status: Acute Assessment & Plan: He appears to most likely have had alcohol withdrawal post- op, but otherwise appears stable. As per Dr. Santacruz. (3) Bipolar disorder Status: Chronic Assessment & Plan: He is on chronic treatment with Lamotrigine and Trazodone. No changes. (4) Depression Status: Chronic Assessment & Plan: He is on chronic treatment with paroxetine. (5) BPH (benign prostatic hyperplasia) Status: Chronic Assessment & Plan: He has been on chronic treatment with Flomax. He did have Rodriguez cath placed for some urinary retention. he is voiding well after Rodriguez removed. (6) Hyperlipemia Status: Chronic Assessment & Plan: He is on chronic treatment with Pravastatin. Exam Sepsis Risk: No Definite Risk LETICIA BOGGS MD Jan 01, 2018 06:23
[2018-01-01 07:24] VITALS: BP 121/71
[2018-01-01] MEDS: FOLIC ACID 1 MG TAB PO SCH (08:37)
[2018-01-01] MEDS: DOCUSATE SODIUM 100 MG CAP PO SCH (08:37)
[2018-01-01] MEDS: TAMSULOSIN HCL 0.4 MG CAP PO SCH (08:37)
[2018-01-01] MEDS: PRAVASTATIN SOD 20 MG TAB PO SCH (08:37)
[2018-01-01] MEDS: lamoTRIgine 100 MG TAB PO SCH (08:37)
[2018-01-01] MEDS: GABAPENTIN 300 MG CAP PO SCH (08:37)
[2018-01-01] MEDS: HYDROCORTISONE 1% CR 28.35 GM TP SCH (08:40)
== END 2018-01-01 11:14 | DRG 460 ==
LOC: OR 00:37 → MED 15:15
PROVIDERS: ADMIT Orthopaedic Surgery; ATTEND Orthopaedic Surgery
PROC: 01NB0ZZ Release Lumbar Nerve, Open Approach (ICD-10-PCS; 2017-12-26)
PROC: 0SG1071 Fusion of 2 or more Lumbar Vertebral Joints with Autologous Tissue Substitute, Posterior Approach, Posterior Column, Open Approach (ICD-10-PCS; principal; 2017-12-26 09:30)
DX: M51.16 Intervertebral disc disorders with radiculopathy, lumbar region (principal); F10.231 Alcohol dependence with withdrawal delirium; M43.16 Spondylolisthesis, lumbar region; F31.9 Bipolar disorder, unspecified; E78.5 Hyperlipidemia, unspecified; N40.1 Benign prostatic hyperplasia with lower urinary tract symptoms; R33.8 Other retention of urine; I10 Essential (primary) hypertension; R00.0 Tachycardia, unspecified; Z90.49 Acquired absence of other specified parts of digestive tract; Z96.653 Presence of artificial knee joint, bilateral
CPT/HCPCS: 36415; 36600; 71045; 72020; 72100; 82040; 82247; 82310; 82374; 82435; 82565; 82803; 82947; 84075; 84132; 84155; 84295; 84450; 84460; 84520; 85025; 86850; 86900; 86901; 97162; A4216; C1713; J0690; J1170; J2001; J2060; J2250; J2405; J2704; J2795; J3010; J3490; J7120

== ENCOUNTER 2018-01-01 11:15 | Inpatient (IN) | payer MEDICARE, OTHER ==
[2017-12-27 16:34] VITALS: Ht 170.2 cm; Wt 90.7 kg
[~2018-01-01] VITALS: Ht 170.2 cm; Wt 90.7 kg
[2018-01-01] MEDS ORDERED: DIAZEPAM 5 MG TAB PO PRN (11:47)
[2018-01-01] MEDS ORDERED: FLUTICASONE PROP 0.05% 16 GM ENA PRN (11:47)
[2018-01-01] MEDS ORDERED: ACETAMINOPHEN 500 MG TAB PO PRN (11:47)
[2018-01-01] MEDS ORDERED: BISACODYL 10 MG SUPP PR PRN (11:47)
[2018-01-01] MEDS ORDERED: BENZOCAINE/MENTHOL 1 EACH LOZG PO PRN (11:47)
[2018-01-01 12:09] VITALS: BP 123/71
[2018-01-01] MEDS: GABAPENTIN 300 MG CAP PO SCH ×2 (13:37→20:28)
--- NOTE | 2018-01-01 14:23 | OT ECF NOTE ---
Type of Note: Initial Note Primary Medical Diagnosis: Lumbar Fusion L2-5 Occupational Therapy Evaluation Date: 01-01-18 SUBJECTIVE: Prior Hospitalization: 12-26-17 to 01-01-18 Prior Level of Functio-n: Pt. was Independent with all activities prior to lumbar back fusion. Prior Living Status: Bi-level house Alone Community Services: Independent Home Accessibility: Walk-in shower Equipment Owned: [employer] Medical Complications/Past Medical History: Please refer to chart for details. Psychosocial Support: Pt. is very emotional regarding his of 30 years filing for divorce. Pain Scale (0-10): None Stated OBJECTIVE: Strength: MMT: Right Left Shoulder Flexion [*] [*] Elbow Flexion [*] [*] Wrist Extension [*] [*] Environmental Professional [*] [*] (5= normal, 4= good, 3= fair, 2= poor, 1= trace) ROM: Both upper extremities WFL Functional Transfer: Assistive Device: Transfer Ability: SBA (to perform sit <> stand transfer in order to pull up LB clothing). ADL: Upper body dressing: Assistive device: none Upper body dressing ability: Set-up Lower body dressing: Assistive device: Assistant Director [employer] Sock aid Lower body dressing ability: Modified Ind/AE Toileting: Assistive device: Toileting ability: NT Grooming/hygiene: Assistive device: Grooming ability: NT Bathing: Assistive device: Bathing ability: NT Standardized Assessment: Gloria Index of Activities of Daily Living- Pt. scored a 13/20 on this Index upon evaluation. ASSESSMENT: Pt. is a 67 year old male, admitted for surgery for a Lumbar Fusion L2-5 on 12/26/[address] Santacruz. Pt. underwent ETOH withdraws following surgery and was emergency detained due to stating that he was going to leave A. Pt. resides alone in [place] in bi-level home and was previously independent with all activities prior to surgery. Pt. is requiring assistance in order to ambulate and perform all ADL activities. Problem List/Current Limitations: Decreased activity susie Generalized weakness Short Term Goals: 1. Pt. to perform dressing activities with Mod I. 2. Pt. to perform toileting activities with Mod I. 3. Pt. to improve Gloria Index score by 2 points. 4. Pt. to perform g/h activities with I. 5. Pt. to perform light meal prep activities with I. Group Home Goals: Return to home. Patient Goals: Return to home. Rehabilitation Prognosis: Good Barriers to Discharge: History of substance abuse and mental health dx. PLAN: The patient will benefit from skilled occupational therapy services 5 times per week for 2 weeks including: Ther ex Safety training Ther act Transfer training Adaptive equip training Bed mobility Thank you for this referral. If you have any questions, concerns, or comments about this report or plan, please contact me at . Patrica Cadet, OTR/L Occupational Therapist RAFA
[2018-01-01] MEDS: HYDROCORTISONE 1% CR 28.35 GM TP SCH (20:27)
[2018-01-01] MEDS: traZODone HCL 50 MG TAB PO SCH (20:28)
[2018-01-01] MEDS: APAP/HYDROCODONE 325/5 TAB PO PRN (20:28)
[2018-01-01] MEDS: DOCUSATE SODIUM 100 MG CAP PO SCH (20:28)
[2018-01-01] MEDS: MAGNESIUM HYDROXIDE* 30ML UDCP PO PRN (20:28)
[2018-01-02 08:00] VITALS: BP 129/70
[2018-01-02] MEDS: HYDROCORTISONE 1% CR 28.35 GM TP SCH ×2 (09:01→19:40)
[2018-01-02] MEDS: PRAVASTATIN SOD 20 MG TAB PO SCH (09:02)
[2018-01-02] MEDS: TAMSULOSIN HCL 0.4 MG CAP PO SCH (09:02)
[2018-01-02] MEDS: FOLIC ACID 1 MG TAB PO SCH (09:02)
[2018-01-02] MEDS: CHOLECALCIFEROL 1000 UNIT TAB PO SCH ×2 (09:02→09:08)
[2018-01-02] MEDS: PARoxetine HCL 20 MG TAB PO SCH (09:02)
[2018-01-02] MEDS: lamoTRIgine 100 MG TAB PO SCH (09:02)
[2018-01-02] MEDS: DOCUSATE SODIUM 100 MG CAP PO SCH ×2 (09:02→19:38)
[2018-01-02] MEDS: GABAPENTIN 300 MG CAP PO SCH ×3 (09:02→19:39)
[2018-01-02] MEDS: MULTIVITAMINS TAB PO SCH (09:02)
--- NOTE | 2018-01-02 14:28 | PT ECF NOTE ---
Type of Note: Initial Note Primary Medical Diagnosis: Multi-level fusion with multiple laminectomies Physical Therapy Evaluation Date: 01/02/18 SUBJECTIVE: Prior Hospitalization: IM Med/Surg 12/26/17-01/01/18 Prior Level of Function: Mod I with functional mobility using 2 canes for ambulation. Pt with frequent falls due to LE weakness. Prior Living Status: Multilevel house, Alone Community Services: No known needs Home Accessibility: Stairs with rails Equipment Owned: 2 Canes, shower bench Medical Complications/Past Medical History: See [employer] Psychosocial Support: none identified by patient Pain Scale (0-10): tolerable and less that at baseline OBJECTIVE: Strength: grossly decreased as observed with functional mobility. Formal MMT deferred due to recent back surgery. Sensation: (please note any abnormalities) Pt denies any decreased sensation currently, yes in B LE prior to back sx. Other Neuro findings: consistent with B LE decreased neural input. Bed Mobility: not observed Transfers: CGA Assistive Device: Front wheeled walker Gait: CGA x1200' with RW Assistive device: Front wheeled walker Stairs: CGA x6 4in stairs. Pt opted for lateral ascend/descend. Assistive device: Right railing 10 meter walk test (0.6m/second cannot function independently): 10m/25 seconds = 0.4m/s ASSESSMENT: Pt presents with decreased strength in B LE with decreased independence with functional mobility and decreased balance. Pt will benefit from skilled PT for functional mobility training, strengthening, and balance training in order to be Mod I with functional mobility. Problem List/Current Limitations: Pain, Decreased activity tolerance, Decreased strength, Decreased balance, Generalized weakness Short Term Goals: 1. Mod I bed mobility utilizing log rolling technique. 2. Mod I transfers from a variety of surfaces. 3. Mod I gait x 500' with least restrictive device. 4. Ascend/descend 8 stairs with 1 rail Mod I. 5. Perform all functional mobility within lumbar precautions. Nursing Home Goals: Return to living independently Patient Goals: Return to living independently Rehabilitation Prognosis: Good Barriers for Discharge: current life stress PLAN: The patient will benefit from skilled physical therapy services 5 times per week for 2 weeks including: Therapeutic Exercise, Therapeutic Activities, Transfer Training, Gait Training, Stair Training, Manual Therapy, ADL's, Safety Training, Neuromuscular Re-educ., Pt/Caregiver Training, Bed Mobility Thank you for this referral. If you have any questions, concerns, or comments about this report or plan, please contact me at . Kadie Serrano, PT, DPT, GCS MTDD
[2018-01-02 17:24] VITALS: BP 140/83
[2018-01-02] MEDS: APAP/HYDROCODONE 325/5 TAB PO PRN (19:28)
[2018-01-02] MEDS: MAGNESIUM HYDROXIDE* 30ML UDCP PO PRN (19:38)
[2018-01-02] MEDS: traZODone HCL 50 MG TAB PO SCH (19:38)
[2018-01-03 07:45] VITALS: BP 117/64
[2018-01-03] MEDS: HYDROCORTISONE 1% CR 28.35 GM TP SCH ×2 (09:26→19:42)
[2018-01-03] MEDS: PRAVASTATIN SOD 20 MG TAB PO SCH (09:26)
[2018-01-03] MEDS: MULTIVITAMINS TAB PO SCH (09:27)
[2018-01-03] MEDS: GABAPENTIN 300 MG CAP PO SCH ×3 (09:27→19:40)
[2018-01-03] MEDS: DOCUSATE SODIUM 100 MG CAP PO SCH ×2 (09:27→19:40)
[2018-01-03] MEDS: PARoxetine HCL 20 MG TAB PO SCH (09:27)
[2018-01-03] MEDS: FOLIC ACID 1 MG TAB PO SCH (09:27)
[2018-01-03] MEDS: CHOLECALCIFEROL 1000 UNIT TAB PO SCH (09:27)
[2018-01-03] MEDS: lamoTRIgine 100 MG TAB PO SCH (09:27)
[2018-01-03] MEDS: TAMSULOSIN HCL 0.4 MG CAP PO SCH (09:27)
--- NOTE | 2018-01-03 10:33 | Consultant Pharmacy Review ---
Retinal Angiographer Review Medication Review Do All Mecications have a Diag: Yes Beers Criteria Medication 2015 Antidepressants: Paroxetine Benzodiazapines (long acting): Diazepam (Q6 HOURS PRN SPASMS) Other General Cautions Serotonin Reuptake Inhibitor/Antagonists / Selective Serotonin Reuptake Inhibitors Risk Rating D: Consider therapy modification Summary Selective Serotonin Reuptake Inhibitors may enhance the serotonergic effect of Serotonin Reuptake Inhibitor/Antagonists. This may cause serotonin syndrome. Severity Major Reliability Rating Fair Patient Management Consider alternatives to the use of a selective serotonin reuptake inhibitor and serotonin reuptake inhibitor/antagonist in combination. Conservative initial dosing is warranted. Monitor for evidence of serotonin syndrome (eg, agitation, coma, confusion, fever, diaphoresis, hypertension, muscle rigidity, seizures, tremors) if an SSRI and a serotonin reuptake inhibitor/antagonist are used concomitantly, or one is used following the discontinuation of the other. Trazodone is commonly used as a hypnotic for the management of SSRI-associated sleep disturbances. Serotonin Reuptake Inhibitor/Antagonists Interacting Members Nefazodone*; TraZODone Selective Serotonin Reuptake Inhibitors Interacting Members Citalopram; Dapoxetine; Escitalopram; FLUoxetine; FluvoxaMINE; PARoxetine*; Sertraline; Vilazodone; Vortioxetine * Denotes agent(s) specifically implicated in clinical data. Unmarked agents are listed because they have properties similar to marked agents, and may respond so within the context of the stated interaction. Discussion Evidence of serotonin syndrome developed in a patient who initiated paroxetine therapy (20 mg/day) one day following the discontinuation of a 6- month course of nefazodone therapy.1 Her symptoms included muscle rigidity, tremors, diaphoresis, flailing arms, and twitching legs. She became unresponsive and received successful supportive treatment in an emergency room. Reinitiation of paroxetine 7 days following this episode was uneventful. This interaction is likely the result of combined serotonin-related effects of the individual agents. Footnotes 1. Carlo Guthrie, Daniella MM, Ulices T, et al, Serotonic Syndrome Associated With Nefazodone and Paroxetine, Laurie Emerg Med, 1997, 29:287-9. [PubMed [id number]] * Terms & Conditions // * Disclaimer// * Privacy Policy HYDROcodone / SERVICE STATION HELPER Depressants Risk Rating D: Consider therapy modification Summary SERVICE STATION HELPER Depressants may enhance the SERVICE STATION HELPER depressant effect of HYDROcodone. Severity Major Reliability Rating Fair Patient Management Avoid concomitant use of hydrocodone and benzodiazepines or other SERVICE STATION HELPER depressants when possible. These agents should only be combined if alternative treatment options are inadequate. If combined, limit the dosages and duration of each drug to the minimum possible while achieving the desired clinical effect. Consider starting with a 20% to 30% lower hydrocodone dose when using together with any other SERVICE STATION HELPER depressant. This recommendation comes specifically from the prescribing information for the Zohydro ER brand of extended-release hydrocodone but is likely reasonable for other hydrocodone- containing products as well. Warn patients and caregivers about the risk of slowed or difficult breathing and/or sedation and monitor patients closely for evidence of excessive SERVICE STATION HELPER depression. SERVICE STATION HELPER Depressants Interacting Members Acrivastine; Afloqualone; Alcohol (Ethyl); Alfentanil; ALPRAZolam; Amisulpride; Amitriptyline; Amobarbital; Amoxapine; ARIPiprazole; ARIPiprazole Lauroxil; Asenapine; Baclofen; Benperidol; Benzhydrocodone; Bilastine; Blonanserin; Brexpiprazole; Brimonidine (Ophthalmic); Brivaracetam; Bromazepam; Bromperidol; Brompheniramine; Buclizine; Buprenorphine; BusPIRone; Butabarbital; Butalbital; Butorphanol; CarBAMazepine; Carbinoxamine; Cariprazine; Carisoprodol; Cetirizine (Systemic); Chloral Betaine; Chloral Hydrate; ChlordiazePOXIDE; Chlormethiazole; Chlorpheniramine; ChlorproMAZINE; Chlorzoxazone; Cinnarizine; Clemastine; CloBAZam; ClomiPRAMINE; ClonazePAM; CloNIDine; Clorazepate; Clothiapine; CloZAPine; Codeine; Cyclizine; Cyclobenzaprine; Cyproheptadine; Dantrolene; Desflurane; Desipramine; Desloratadine; Deutetrabenazine; Dexbrompheniramine; Dexchlorpheniramine; DiazePAM; Difenoxin; Dihydrocodeine; DimenhyDRINATE; Dimethindene (Systemic); DiphenhydrAMINE (Systemic); DiphenhydrAMINE (Topical); Diphenoxylate; Dosulepin; Doxepin (Systemic); Doxepin (Topical); Doxylamine; Droperidol; Ebastine; Efavirenz; Emedastine (Systemic); Entacapone; Eperisone; Estazolam; Eszopiclone; Ethosuximide; Ethotoin; Ethyl Loflazepate; Etizolam; Ezogabine; Felbamate; FentaNYL; Fexofenadine; Flibanserin; Flunarizine; Flunitrazepam; Flupentixol; FluPHENAZine; Flurazepam; Fosphenytoin; Gabapentin; Gabapentin Enacarbil; Glutethimide; GuanFACINE; Haloperidol; Halothane; Heroin; HYDROcodone; HYDROmorphone; HydrOXYzine; Iloperidone; Imipramine; Isoflurane; Ketamine; Ketotifen (Systemic); LamoTRIgine; LevETIRAcetam; Levocetirizine; Levorphanol; Lofepramine; Loprazolam; Loratadine; LORazepam; Lormetazepam; Loxapine; Lurasi done; Maprotiline; Meclizine; Melitracen [INT]; Meperidine; Meprobamate; Meptazinol; Mequitazine; Metaxalone; Methadone; Methocarbamol; Methohexital; Methotrimeprazine; Methoxyflurane; Methsuximide; Mianserin; Midazolam; Mirtazapine; Molindone; Morphine (Liposomal); Morphine (Systemic); Moxonidine; Nalbuphine; Nalfurafine; Nefopam; Nitrazepam; Nitrous Oxide; Nordazepam; Nortriptyline; OLANZapine; Olopatadine (Systemic); Opium; Opium Tincture; Orphenadrine; Oxatomide; Oxazepam; Oxomemazine; OxyCODONE; OxyMORphone; Paliperidone; Paraldehyde; Paregoric; Pentazocine; PENTobarbital; Perampanel; Periciazine; Perphenazine; Pheniramine; PHENobarbital; Phenyltoloxamine; Phenytoin; Pholcodine; Pimozide; Pipamperone [INT]; Pipotiazine; Pizotifen; Pomalidomide; Prazepam; Pregabalin; Primidone; Prochlorperazine; Promazine; Promethazine; Propofol; Protriptyline; Pyrilamine (Systemic); Quazepam; QU Etiapine; Ramelteon; Remifentanil; Reserpine; Rilmenidine; RisperiDONE; Rupatadine; Scopolamine (Ophthalmic); Scopolamine (Systemic); Secobarbital; Sevoflurane; Sodium Oxybate; Stiripentol; SUFentanil; Sulpiride; Suvorexant; Tapentadol; Tasimelteon; Temazepam; Tetrabenazine; Thalidomide; Thiopental; Thioridazine; Thiothixene; Thonzylamine; TiaGABine; TiZANidine; Tofisopam; Tolcapone; Topiramate; TraMADol; Triazolam; Trifluoperazine; Trimeprazine; Trimipramine; Triprolidine; Valerian; Vigabatrin; Zaleplon; Ziconotide; Ziprasidone; Zolpidem; Zonisamide; Zopiclone; Zuclopenthixol Discussion A US Food and Drug Administration (FDA) drug safety communication states that combined use of opioids with benzodiazepines or other drugs that depress the SERVICE STATION HELPER has resulted in serious side effects, including slowed or difficult breathing and deaths.1 Another FDA safety communication recommends that patients should not be excluded from treatment with methadone or buprenorphine for opioid dependence due to concomitant use of SERVICE STATION HELPER depressants, considering both the potential risks of this combination and the potential risks of untreated opioid dependence.2 A cohort study found that the risk of opioid-related overdose was 10-fold higher in patients who also received benzodiazepines (7.0 per 10,000 person- years) compared with patients who received opioids alone (0.7 per 10,000 person years).3 In another analysis of opioid-treated patients in the [facility] database, the risk of from drug overdose was significantly higher among those prescribed concomitant benzodiazepines compared with those receiving opioids alone (HR 3.86).4 A cohort study of 4501 patients prescribed buprenorphine or methadone for treatment of opioid dependence reported an increased risk of both overdose-related deaths (adjusted HR 1.49 to 2.02) and all-cause mortality (adjusted HR 1.28 to 2.01) for patients receiving concurrent benzodiazepines, z-drugs (zopiclone, zolpidem, or zaleplon), or pregabalin.5 Not all of these increases were statistically significant, but the overall picture of a general increased risk with these combinations is consistent with other data. The odds of opioid-related was also significantly increased in opioid-treated patients who were exposed to gabapentin within 120 days (adjusted OR 1.5) as compared with those taking an opioid prescription alone, according to a case-control study of 1,256 cases (individuals who of an opioid-related cause) and 4,619 matched controls (opioid users).6 Similarly, another case-control study by the same group found that concomitant exposure to opioids and pregabalin within 120 days was associated with increased odds of opioid-related compared to opioids alone (adjusted OR 1.7) in an analysis of 1,417 cases and 5,097 matched controls.7 Additional analyses have concluded that other SERVICE STATION HELPER depressants (eg, antipsychotics, antidepressants, antiepileptics) and alcohol are often implica lotus in opioid-related overdose and .8,9 The prescribing information for the Zohydro ER brand of extended-release hydrocodone also recommends starting at a 20% to 30% lower hydrocodone dose if being initiated in a patient who is taking another drug with SERVICE STATION HELPER depressant effects.10 The recommendation further suggests consideration of a reduction in the dose of the other SERVICE STATION HELPER depressant. This warning is due to the potential for additive or synergistic SERVICE STATION HELPER depression, leading to an increased risk of adverse effects such as respiratory depression, hypotension, excessive sedation, and coma. Footnotes 1. US Food and Drug Administration. FDA Drug Safety Communication: FDA warns about serious risks and when combining opioid pain or cough medicines with benzodiazepines; requires its strongest warning. http://www.fda.gov/Drugs/DrugSafety/ikf836781.htm. Published November 03, 2015. Accessed November 11, 2015. 2. FDA Drug Safety Communication: FDA urges caution about withholding opioid addiction medications from patients taking benzodiazepines or SERVICE STATION HELPER depressants: careful medication management can reduce risks. h ttps://www.fda.gov/Drugs/DrugSafety/bbn571825.htm. Accessed November 23, 2016. 3. Winifred N, Joel MJ, Yifan S, Go A, Heaven KM, Rafiq S. Cohort study of the impact of high-dose opioid analgesics on overdose mortality. Pain Med. 2016;17(1):85-98. [PubMed [id number]] 4. Haley TW, Naldo R, Sarah Bang, Samara DOLAN, Yimi . Benzodiazepine prescribing patterns and deaths from drug overdose among [place] veterans receiving opioid analgesics: case-cohort study [published online August 12, 2014]. BMJ. doi: 10.1136/bmj.h2698. [PubMed [id number]] 5. Michelle Taveras, Mary Carmen A, Ivett A. Benzodiazepine, z-drug and pregabalin prescriptions and mortality among patients in opioid maintenance treatment-A nation-wide register-based open cohort study. Drug Alcohol Depend. 2017;174:58-64. [PubMed [id number]] 6. Reginald T, Adrienne DN, Nisreen T, Dwayne MM, Jesse WORTHY, van den Brjohnathan W. Gabapentin, opioids, and the risk of opioid-related : A population-based nested case-control study. PLoS Med. 2017;14(10):d8369993. [PubMed [id number]] 7. Reginald Currie, Dora S, van den Brink W, et al. Pregabalin and the risk for opioid-related : a nested case-control study. Laurie Switch Adjuster Med. 2018; Oct 23 (epub ahead of print). [PubMed [id number]] 8. Erasto WISDOM, Joe HURLEY, Myke DOS SANTOS. Pharmaceutical overdose deaths, [place], 2009. RIOS. 2013;309(7):657-659. [PubMed [id number]] 9. Erasto WISDOM, Myke DOS SANTOS, Joe HURLEY; Centers for Disease Control and Prevention (CDC). Alcohol involvement in opioid pain reliever and benzodiazepine drug abuse-related emergency department visits and drug-related deaths-[place], 2009. MMWR Morb Mortal Wkly Rep. 2014;63(40):881-885. [PubMed [id number]] 10. Zohydro ER (hydrocodone) [prescribing information]. [place], [place]: [employer]; December 2012. * Terms & Conditions // * Disclaimer// * Privacy Policy * [employer] on [employer] * Lexicomp on [employer] * Get [employer] [place] 2018 [employer] and its affiliates and/or licensors. All Rights Reserved. * Top of Form 1 * Bottom of Form 1 Pneumococcal Vaccine HX Pneumo Vac (Edabgvv34): Yes (2017) HX Pneumo Vac (Pneumovax): Yes (2017) Comments Regarding the Review Review the need for diazepam,Lortab at least every 14 days. BetweEn the acetaminophen and Lortab, do not exceed 4 gm of acetaminophen per day and this decreases to 2 gm/24 hours for patients with liver disease. Monitor patient for rash due to Lamictal use. Patient is up to date with his pneumococcal vaccines and may receive the flu vaccine for the 2017 season if he desires. Labs: periodic LFTs,renal function tests. HEENA BETTENCOURT Jan 03, 2018 10:33
--- NOTE | 2018-01-03 10:56 | Medical Nutrition Therapy ---
Nutrition Anthropometrics Height (Inches): 67.00 Height (Calculated Centimeters: 170.291861 Weight (Pounds): 200 Weight (Calculated Kilograms): 90.718 BMI: 31.3 Marek Nutrition Score: Adequate Marek Nutrition Risk Score: 17 Dietary Referral Nutrition Risk Factors: Unplanned Loss >10lbs Nutrition Risk Comment: Has lost 90 pounds in last 2 years. Pt exercised and changed diet Physical Findings Physical Appearance: Obese BMI 30-39 Skin Appearance Skin Appearance: Edema Edema Location Modifier: Edema Location: Type of Edema: Degree of Edema: Gastrointestinal Symptoms GI Symtoms: Tube Present: Bowel Sounds: Recent Bowel Pattern: Stool Characteristics: Nutritional Diagnosis Nutritional Risk Acuity 3: Alcohol abuse Nutritional Risk Acuity 4: Good Appetite Past Medical History: alcohol abuse Nutritional Acuity: 3-Mild Adjusted Energy Requirement Re: 2100 (2100 H-B adj for obesity X 1.1 SF) Protein Requirement: 90 (1gm/kg) Fluid Requirement: 2100 (1ml/kcal) Diet Type: Diet as Tolerated BRENDA/REG Nutrition Intervention: Cont diet as ordered, Encourage intake Nutrition Monitoring & Eval Nutrition Goals: Eat 75-100% Meal RD Patient Assessment Time: [address] Assessment Type: RD Assessment Patient Nutrition Acuity: 3-Mild Follow Up Date: Jan 08, 2018 Nutritional Comment: 01/03 Pt admitted fs/p lumbar fusion. Pt had hx of alcohol abuse. Pt is recieving MVI, folic acid and Vit D. Pt has hx of prediabetes. Aic of 6 cont in prediabetes range. pt on regualr diet and eating 75 -100%. BMI is in class 1 obesity range. Will cont to monitor and encourage intake. MACKENZIE MCKEON Jan 03, 2018 10:56
[2018-01-03 16:33] VITALS: BP 122/70
[2018-01-03] MEDS: traZODone HCL 50 MG TAB PO SCH (19:40)
[2018-01-03] MEDS: APAP/HYDROCODONE 325/5 TAB PO PRN (19:40)
[2018-01-04 07:45] VITALS: BP 131/76
[2018-01-04] MEDS: FOLIC ACID 1 MG TAB PO SCH (08:21)
[2018-01-04] MEDS: TRIAMCINOLONE ACE 0.1% CR 15GM TP SCH ×2 (08:21→20:52)
[2018-01-04] MEDS: GABAPENTIN 300 MG CAP PO SCH ×3 (08:21→20:52)
[2018-01-04] MEDS: PARoxetine HCL 20 MG TAB PO SCH (08:21)
[2018-01-04] MEDS: lamoTRIgine 100 MG TAB PO SCH (08:21)
[2018-01-04] MEDS: CETIRIZINE HCL 10 MG TAB PO SCH (08:21)
[2018-01-04] MEDS: TAMSULOSIN HCL 0.4 MG CAP PO SCH (08:21)
[2018-01-04] MEDS: MULTIVITAMINS TAB PO SCH (08:21)
[2018-01-04] MEDS: PRAVASTATIN SOD 20 MG TAB PO SCH (08:22)
[2018-01-04] MEDS: CHOLECALCIFEROL 1000 UNIT TAB PO SCH (08:22)
[2018-01-04] MEDS: DOCUSATE SODIUM 100 MG CAP PO SCH ×2 (08:22→20:52)
[2018-01-04 16:20] VITALS: BP 141/83
[2018-01-04] MEDS: APAP/HYDROCODONE 325/5 TAB PO PRN (17:38)
[2018-01-04] MEDS: traZODone HCL 50 MG TAB PO SCH (20:52)
[2018-01-05 07:30] VITALS: BP 115/64
[2018-01-05] MEDS: MULTIVITAMINS TAB PO SCH (08:38)
[2018-01-05] MEDS: CHOLECALCIFEROL 1000 UNIT TAB PO SCH (08:38)
[2018-01-05] MEDS: GABAPENTIN 300 MG CAP PO SCH ×3 (08:38→20:28)
[2018-01-05] MEDS: DOCUSATE SODIUM 100 MG CAP PO SCH ×2 (08:38→20:28)
[2018-01-05] MEDS: lamoTRIgine 100 MG TAB PO SCH (08:38)
[2018-01-05] MEDS: FOLIC ACID 1 MG TAB PO SCH (08:38)
[2018-01-05] MEDS: TAMSULOSIN HCL 0.4 MG CAP PO SCH (08:38)
[2018-01-05] MEDS: CETIRIZINE HCL 10 MG TAB PO SCH (08:39)
[2018-01-05] MEDS: PARoxetine HCL 20 MG TAB PO SCH (08:39)
[2018-01-05] MEDS: TRIAMCINOLONE ACE 0.1% CR 15GM TP SCH ×2 (08:39→20:29)
[2018-01-05] MEDS: PRAVASTATIN SOD 20 MG TAB PO SCH (08:39)
[2018-01-05 15:50] VITALS: BP 128/66
[2018-01-05] MEDS: APAP/HYDROCODONE 325/5 TAB PO PRN ×2 (15:50→20:28)
[2018-01-05] MEDS: traZODone HCL 50 MG TAB PO SCH (20:28)
[2018-01-06] MEDS: APAP/HYDROCODONE 325/5 TAB PO PRN ×3 (01:35→19:08)
[2018-01-06 07:30] VITALS: BP 121/73
[2018-01-06] MEDS: FOLIC ACID 1 MG TAB PO SCH (08:17)
[2018-01-06] MEDS: lamoTRIgine 100 MG TAB PO SCH (08:17)
[2018-01-06] MEDS: CETIRIZINE HCL 10 MG TAB PO SCH (08:17)
[2018-01-06] MEDS: CHOLECALCIFEROL 1000 UNIT TAB PO SCH (08:17)
[2018-01-06] MEDS: PRAVASTATIN SOD 20 MG TAB PO SCH (08:17)
[2018-01-06] MEDS: TAMSULOSIN HCL 0.4 MG CAP PO SCH (08:17)
[2018-01-06] MEDS: GABAPENTIN 300 MG CAP PO SCH ×3 (08:17→21:11)
[2018-01-06] MEDS: TRIAMCINOLONE ACE 0.1% CR 15GM TP SCH ×2 (08:17→21:11)
[2018-01-06] MEDS: MULTIVITAMINS TAB PO SCH (08:17)
[2018-01-06] MEDS: DOCUSATE SODIUM 100 MG CAP PO SCH ×2 (08:17→21:11)
[2018-01-06] MEDS: PARoxetine HCL 20 MG TAB PO SCH (08:18)
[2018-01-06 15:21] VITALS: BP 128/70
[2018-01-06] MEDS: traZODone HCL 50 MG TAB PO SCH (21:11)
[2018-01-07] MEDS: APAP/HYDROCODONE 325/5 TAB PO PRN ×3 (03:24→19:28)
[2018-01-07 07:20] VITALS: BP 122/74
[2018-01-07] MEDS: MULTIVITAMINS TAB PO SCH (08:29)
[2018-01-07] MEDS: TAMSULOSIN HCL 0.4 MG CAP PO SCH (08:29)
[2018-01-07] MEDS: GABAPENTIN 300 MG CAP PO SCH ×3 (08:29→20:37)
[2018-01-07] MEDS: TRIAMCINOLONE ACE 0.1% CR 15GM TP SCH (08:29)
[2018-01-07] MEDS: PRAVASTATIN SOD 20 MG TAB PO SCH (08:29)
[2018-01-07] MEDS: lamoTRIgine 100 MG TAB PO SCH (08:29)
[2018-01-07] MEDS: PARoxetine HCL 20 MG TAB PO SCH (08:29)
[2018-01-07] MEDS: DOCUSATE SODIUM 100 MG CAP PO SCH ×2 (08:29→20:37)
[2018-01-07] MEDS: CETIRIZINE HCL 10 MG TAB PO SCH (08:29)
[2018-01-07] MEDS: CHOLECALCIFEROL 1000 UNIT TAB PO SCH (08:30)
[2018-01-07] MEDS: FOLIC ACID 1 MG TAB PO SCH (08:30)
[2018-01-07 16:00] VITALS: BP 148/82
[2018-01-07] MEDS: TRIAMCINOLONE ACE 0.1% CR 80GM TP SCH (20:37)
[2018-01-07] MEDS: traZODone HCL 50 MG TAB PO SCH (20:37)
[2018-01-08 07:50] VITALS: BP 130/80
[2018-01-08] MEDS: PARoxetine HCL 20 MG TAB PO SCH (08:57)
[2018-01-08] MEDS: CHOLECALCIFEROL 1000 UNIT TAB PO SCH (08:57)
[2018-01-08] MEDS: MULTIVITAMINS TAB PO SCH (08:57)
[2018-01-08] MEDS: CETIRIZINE HCL 10 MG TAB PO SCH (08:57)
[2018-01-08] MEDS: TAMSULOSIN HCL 0.4 MG CAP PO SCH (08:57)
[2018-01-08] MEDS: FOLIC ACID 1 MG TAB PO SCH (08:57)
[2018-01-08] MEDS: lamoTRIgine 100 MG TAB PO SCH (08:57)
[2018-01-08] MEDS: DOCUSATE SODIUM 100 MG CAP PO SCH ×2 (08:57→20:23)
[2018-01-08] MEDS: GABAPENTIN 300 MG CAP PO SCH ×3 (08:57→20:23)
[2018-01-08] MEDS: TRIAMCINOLONE ACE 0.1% CR 80GM TP SCH ×3 (08:58→20:22)
[2018-01-08] MEDS: PRAVASTATIN SOD 20 MG TAB PO SCH (08:58)
--- NOTE | 2018-01-08 13:01 | Medical Nutrition Therapy ---
Nutrition Anthropometrics Height (Inches): 67.00 Height (Calculated Centimeters: 170.221493 Weight (Pounds): 200 Weight (Calculated Kilograms): 90.747 BMI: 31.3 Marek Nutrition Score: Adequate Marek Nutrition Risk Score: 19 Dietary Referral Nutrition Risk Factors: Unplanned Loss >10lbs Nutrition Risk Comment: Has lost 90 pounds in last 2 years. Pt exercised and changed diet Nutritional Diagnosis Nutritional Risk Acuity 3: Alcohol abuse Nutritional Risk Acuity 4: Good Appetite Past Medical History: alcohol abuse Nutritional Acuity: 3-Mild Adjusted Energy Requirement Re: 2100 (2100 H-B adj for obesity X 1.1 SF) Protein Requirement: 90 (1gm/kg) Fluid Requirement: 2100 (1ml/kcal) Diet Type: Diet as Tolerated BRENDA/REG Nutrition Intervention: Cont diet as ordered, Encourage intake Nutrition Monitoring & Eval Nutrition Follow-Up: Good Intake RD Patient Assessment Time: [address] Assessment Type: RD Assessment Patient Nutrition Acuity: 3-Mild Follow Up Date: Jan 15, 2018 Nutritional Comment: 01/03 Pt admitted fs/p lumbar fusion. Pt had hx of alcohol abuse. Pt is recieving MVI, folic acid and Vit D. Pt has hx of prediabetes. Aic of 6 cont in prediabetes range. pt on regualr diet and eating 75 -100%. BMI is in class 1 obesity range. Will cont to monitor and encourage intake. BK 01/08 Pt eating 100% of meals. Wt is stable. BG mildly elevated, pt may benefit from A1c test. Will cont to monitor and encourage intake. MACKENZIE MCKEON Jan 08, 2018 13:01
[2018-01-08] MEDS ORDERED: MOISTURIZING CREAM 120 GM JAR TP PRN (14:30)
--- NOTE | 2018-01-08 14:42 | Miscellaneous Provider Note ---
Miscellaneous Provider Note Note Patient reports his chronic eczematous rash over buttocks/posterior thighs has worsened since admission. On exam he has multiple eczematous/scaly appearing patches over his buttocks and posterior thighs. No drainage. No surrounding erythema. Will use moisturizing cream (Eucerin), triamcinolone twice daily as needed. Watch closely. LETICIA BOGGS MD Jan 08, 2018 14:42
[2018-01-08] MEDS: traMADol 50 MG TAB PO PRN ×2 (15:31→22:29)
[2018-01-08 15:51] VITALS: BP 118/74
[2018-01-08] MEDS: traZODone HCL 50 MG TAB PO SCH (20:23)
[2018-01-09 07:35] VITALS: BP 121/71
[2018-01-09] MEDS: traMADol 50 MG TAB PO PRN (07:47)
--- NOTE | 2018-01-09 08:25 | OT ECF NOTE ---
Type of Note: Discharge Note Primary Medical Diagnosis: Lumbar Fusion L2-5 Occupational Therapy Evaluation Date: 01-01-18 SUBJECTIVE: Prior Hospitalization: 12-26-17 to 01-01-18 Prior Level of Functio-n: Pt. was Independent with all activities prior to lumbar back fusion. Prior Living Status: Bi-level house Alone Community Services: Independent Home Accessibility: Walk-in shower Equipment Owned: Perforator Loader. Plans to obtain a 4WW, electric recliner, sock aid/production supervisor trainee, button hook, elastic laces, shower chair Medical Complications/Past Medical History: Please refer to chart for details. Psychosocial Support: Pt. is very emotional regarding his of 30 years filing for divorce. Pain Scale (0-10): None Stated OBJECTIVE: Strength: MMT: Right Left Shoulder Flexion [*] [*] Elbow Flexion [*] [*] Wrist Extension [*] [*] Solar Installation Technician [*] [*] (5= normal, 4= good, 3= fair, 2= poor, 1= trace) ROM: Both upper extremities, WFL Functional Transfer: Assistive Device: Modified Independent Transfer Ability: Ambulation community distances ADL: Upper body dressing: Assistive device: none Upper body dressing ability: Independent Lower body dressing: Assistive device: Perforator Loader, Sock aid Lower body dressing ability: Modified Ind/AE Toileting: Assistive device: None Toileting ability: Independent Grooming/hygiene: Assistive device: None Grooming ability: Independent Bathing: Assistive device: Shower chair Bathing ability: Per pt and nursing, pt independent with showers. Pt declined to complete, reports no concerns. Standardized Assessment: Gloria Index of Activities of Daily Living- Pt. scored a 13/20 on this Index upon evaluation. 20/20 upon discharge. ASSESSMENT: Pt. is a 67 year old male, admitted for surgery for a Lumbar Fusion L2-5 on 12/26/[address] Santacruz. Pt. underwent ETOH withdraws following surgery and was emergency detained due to stating that he was going to leave AMA. Pt. resides alone in [place] in bi-level home and was previously independent with all activities prior to surgery. Pt. has met all skilled OT goals. Presents with no further questions/concerns for OT at time of discharge. Short Term Goals: 1. Pt. to perform dressing activities with Mod I. GOAL MET. 2. Pt. to perform toileting activities with Mod I. GOAL MET. 3. Pt. to improve Gloria Index score by 2 points. GOAL MET. 4. Pt. to perform g/h activities with I. GOAL MET. 5. Pt. to perform light meal prep activities with I. GOAL MET. Vulcanizing Machine Operator Goals: Return to home. Patient Goals: Return to home after time at [facility]. Rehabilitation Prognosis: Good Barriers to Discharge: History of substance abuse and mental health dx. PLAN: The patient will discharge to [facility] per pt request. Thank you for this referral. If you have any questions, concerns, or comments about this report or plan, please contact me at . Kayley Feliciano MS, OTR/L Occupational Therapist RAFA
[2018-01-09] MEDS: TRIAMCINOLONE ACE 0.1% CR 80GM TP SCH (08:57)
[2018-01-09] MEDS: PRAVASTATIN SOD 20 MG TAB PO SCH (08:57)
[2018-01-09] MEDS: TAMSULOSIN HCL 0.4 MG CAP PO SCH (08:57)
[2018-01-09] MEDS: CETIRIZINE HCL 10 MG TAB PO SCH (08:58)
[2018-01-09] MEDS: CHOLECALCIFEROL 1000 UNIT TAB PO SCH (08:58)
[2018-01-09] MEDS: DOCUSATE SODIUM 100 MG CAP PO SCH (08:58)
[2018-01-09] MEDS: GABAPENTIN 300 MG CAP PO SCH ×2 (08:58→14:08)
[2018-01-09] MEDS: PARoxetine HCL 20 MG TAB PO SCH (08:58)
[2018-01-09] MEDS: FOLIC ACID 1 MG TAB PO SCH (08:59)
[2018-01-09] MEDS: MULTIVITAMINS TAB PO SCH (08:59)
[2018-01-09] MEDS: lamoTRIgine 100 MG TAB PO SCH (08:59)
[2018-01-09] MEDS ORDERED: HYDR10TA3 PO (14:39)
[2018-01-09] MEDS ORDERED: MULTI INGREDIENT TP (14:46)
[2018-01-09] MEDS ORDERED: TRIA15CR40 TP (14:46)
--- NOTE | 2018-01-09 15:00 | Hospitalist Progress Note ---
Subjective Progress Notes Subjective No new complaints. Long standing eczema has flared and is bothering more. Has had for [address] Mallory as an outpatient. Physical Exam Vital Signs Date Time Temp Pulse Resp B/P (MAP) Pulse Ox O2 Delivery O2 Flow Rate FiO2 01/09/18 10:26 96 Room Air 01/09/18 07:35 98.3 62 18 121/71 (88) Intake and Output 01/09/18 06:59 Intake Total 1440 ml Balance 1440 ml Intake Oral 1440 ml # Voids 3 # Bowel Movements 1 General Appearance: Alert, Awake, No Acute Distress, Afebrile Neuro: No Gross deficits (While sitting. ) Eyes: PERRLA Cardiovascular: Regular Rate and Rhythm Respiratory: Clear to Auscultation GI: Soft and Non-Tender Psych: Appropriate Mood & Affect Assessment and Plan Problems: (1) History of alcohol abuse Status: Chronic Assessment & Plan: The patient had significant alcohol withdrawal while on the medical/surgical floor. He was monitored on the CIWA protocol and did require a couple days of benzodiazepines. His withdrawal symptoms then resolved. He does have a substance abuse counselor and a "regular" counselor he follows with at [facility] and also uses AA meetings. He was encouraged to follow up with his current care team. It was emphasized while on the surgical floor that his shelter outlook would be dependent on his ability to maintain abstinence and follow up closely with his counselors. He reported full understanding of this. (2) S/P lumbar fusion Status: Acute Assessment & Plan: Dr. Santacruz performed the surgery managed the patient postoperatively. (3) Bipolar disorder Status: Chronic Assessment & Plan: He was continued on chronic treatment with Lamotrigine and Trazodone. (4) Depression Status: Chronic Assessment & Plan: He was continued on chronic treatment with paroxetine. (5) BPH (benign prostatic hyperplasia) Status: Chronic Assessment & Plan: He was continued on chronic treatment with Flomax. He did have a Rodriguez catheter placed for some urinary retention after surgery. His Rodriguez was discontinued and he had no further urinary issues. (6) Hyperlipemia Status: Chronic Assessment & Plan: He was continued on chronic treatment with Pravastatin. Time Spent on Plan of Care: < 30 min HEENA BOGGS MD Jan 09, 2018 15:00
[2018-01-09] MEDS ORDERED: TRIA15OI20 TP (15:34)
[2018-01-09] MEDS ORDERED: TRAM-420 PO ×3 (15:42→15:46)
[2018-01-10] MEDS ORDERED: lamoTRIgine 100 MG TAB PO SCH (09:00)
--- NOTE | 2018-01-17 22:06 | PT ECF NOTE ---
Type of Note: Discharge Note Primary Medical Diagnosis: Multi-level fusion with multiple laminectomies Physical Therapy Evaluation Date: 01/02/18 SUBJECTIVE: Prior Hospitalization: [facility] Med/Surg 12/26/17-01/01/18 Prior Level of Function: Mod I with functional mobility using 2 canes for ambulation. Pt with frequent falls due to LE weakness. Prior Living Status: Multilevel house, Alone Community Services: No known needs Home Accessibility: Stairs with rails Equipment Owned: 2 Canes, shower bench Medical Complications/Past Medical History: See Inspirato Psychosocial Support: none identified by patient Pain Scale (0-10): tolerable and less that at baseline OBJECTIVE: Strength: Improved to 4/5 overall with functional mobility; Formal MMT deferred due to recent back surgery. Sensation: (please note any abnormalities) Pt denies any decreased sensation currently, yes in B LE prior to back sx. Other Neuro findings: consistent with B LE decreased neural input. Bed Mobility: Modified indep Transfers: Modified indep Assistive Device: Front wheeled walker Gait: Modified indep x 1500' with 4WW Assistive device: Front wheeled walker and 4WW Stairs: Modified indep x24 steps with rail. Assistive device: Right railing 10 meter walk test (0.6m/second cannot function independently): 10m/25 seconds = 0.4m/s; Not readdressed as this is a functional speed. ASSESSMENT: Pt has met all PT goals and exceeded functional mobility by addressing floor transfers as well in safe effective manner. Problem List/Current Limitations: Pain Short Term Goals: (Met) 1. Mod I bed mobility utilizing log rolling technique. 2. Mod I transfers from a variety of surfaces. 3. Mod I gait x 500' with least restrictive device. 4. Ascend/descend 8 stairs with 1 rail Mod I. 5. Perform all functional mobility within lumbar precautions. Nursing Home Goals: Return to living independently - Pt had chosen to transfer to Assisted Living facility temporarily. Patient Goals: Return to living independently- Pt is capable, but chooses not to at this time. Rehabilitation Prognosis: Good Barriers for Discharge: current life stress PLAN: Pt discharged to [facility] with PT goals met. Pt to follow up with [facility] for further out pt rehab per his choice. Thank you for this referral. If you have any questions, concerns, or comments about this report or plan, please contact me at . H. Christina Toro, PT, MPT, OMS MTDD
--- NOTE | 2018-01-29 04:52 | DISCHARGE SUMMARY ---
DATE OF ADMISSION: January 01, 2018 DATE OF DISCHARGE: January 09, 2018 ADMISSION DIAGNOSIS Postoperative weakness. DISCHARGE DIAGNOSIS Postoperative weakness. HOSPITAL COURSE Mr. Peck was admitted to the extended care facility after several days in the hospital, having undergone a lumbar laminectomy and fusion. He gradually improved over the course of his hospital stay, working with Physical Therapy each day, and ultimately was discharged home with no complications. He was scheduled to follow up with me for postoperative visit approximately two weeks postoperatively. RAFA
== END 2018-01-09 16:25 | DRG 950 ==
LOC: SWB 11:15
PROVIDERS: ADMIT Orthopaedic Surgery; ATTEND Orthopaedic Surgery
DX: Z48.811 Encounter for surgical aftercare following surgery on the nervous system (principal); I10 Essential (primary) hypertension; I25.10 Atherosclerotic heart disease of native coronary artery without angina pectoris; R53.1 Weakness; N40.0 Benign prostatic hyperplasia without lower urinary tract symptoms; F31.9 Bipolar disorder, unspecified; E78.5 Hyperlipidemia, unspecified; L30.9 Dermatitis, unspecified; Z90.49 Acquired absence of other specified parts of digestive tract; Z96.653 Presence of artificial knee joint, bilateral
CPT/HCPCS: 97161; 97165

== ENCOUNTER 2018-01-01 14:08 | Outpatient (RCR) | payer MEDICARE, OTHER ==
[2017-12-27 16:34] VITALS: BMI 31.9
--- NOTE | 2018-01-09 12:49 | Transitional Care Management ---
TCM Discharge Criteria Transitional Care Comment: 12/27 Pt has recwently gotten and has been binge drinking for awhile but has not drank in the past 3 weeks an plans on continung this cessation. He is interested in the [facility] program for follow up calls and visits and a resource. He does already see [facility] and someone from [facility].12/28 12/29 unable to visit d/t alcohol withdrawal. 01/09 Chava has been on SNF unit for the past weeks. He is now going to transfer to [facility] fr continued strengtheing and rehab. We visit for quit a lengthy time about his plans . He feels he has everything going the right direction at this time. He needs to fix up home and get it on the market and move on with life. He feels hehas a good sponsor for his alcohol problem and that he will be able to recover. Copies to: LIUDMILA PRETTY MD ; OLIVIA RYAN Jan 09, 2018 12:49
[2018-01-09] MEDS ORDERED: HYDR10TA3 PO (14:39)
[2018-01-09] MEDS ORDERED: MULTI INGREDIENT TP (14:46)
[2018-01-09] MEDS ORDERED: TRIA15CR40 TP (14:46)
[2018-01-09] MEDS ORDERED: TRIA15OI20 TP (15:34)
[2018-01-09] MEDS ORDERED: TRAM-420 PO ×3 (15:42→15:46)
== END 2018-01-11 16:01 | disposition home or self-care (01) ==
LOC: TCM 14:08
PROVIDERS: ATTEND Nurse Practitioner
DX: Z02.9 Encounter for administrative examinations, unspecified (principal)

== ENCOUNTER → 2018-01-18 | Outpatient (REF) | payer MEDICARE, OTHER ==
[2017-12-27 16:34] VITALS: BMI 31.9
[~2018-01-18] MED LIST changes: +HYDR10TA3 PO; +MULTI INGREDIENT TP; +TRIA15CR40 TP; +TRIA15OI20 TP
== END ==
LOC: ZZSENDIN 13:01
DX: R31.1 Benign essential microscopic hematuria (principal); N30.01 Acute cystitis with hematuria; B96.89 Other specified bacterial agents as the cause of diseases classified elsewhere
CPT/HCPCS: 81001; 87077; 87088

== ENCOUNTER 2018-03-04 11:25 | Emergency (ER) | payer MEDICARE, OTHER ==
[2017-12-27 16:34] VITALS: Wt 90.7 kg
--- NOTE | 2018-03-04 11:35 | ER Report ---
History and Physical Time Seen By MD: 11:34 HPI/ROS CHIEF COMPLAINT: Alcohol withdrawal HISTORY OF PRESENT ILLNESS: 67-year-old male patient presents to emergency room with complaint alcohol withdrawal. Patient states that he drank approximately a quart of vodka last night. He states when he woke up this morning he was feeling like he is withdrawing. He states that his heart was racing, he states that he felt nauseated. He states he is not vomited. He states that he has not taken any medication for this. He denies any fevers or chills. He states that he would like to go to behavioral health to detox. He states that he is also very sad, he states that he and his are currently in the process of getting and he is traveling with that. He states that he was alone for the holiday season. He states he did better after he had his back surgery and spent some time at [facility] assisted living. He states he does not drink everyday but does drink frequently throughout the week and that typically when he does he will drink ap proximately a quart of hard liquor. Patient states that he started drinking heavily proximally 5 years ago when he retired. REVIEW OF SYSTEMS: Respiratory: No cough, no dyspnea. Cardiovascular: No chest pain, no palpitations. Gastrointestinal: No vomiting, no abdominal pain. Musculoskeletal: No back pain. Allergies: Coded Allergies: clindamycin (Verified Allergy, Intermediate, WIDE SPREAD RASH AND SOB, 03/04/18) Home Meds Reported Medications Tramadol Hcl (TRAMADOL HCL) 50 Mg Tablet, 50 MG PO Q6HR PRN for PAIN, #40 TAB 01/09/18 Triamcinolone Acetonide 0.1% Oint 15 Gm Tube (TRIAMCINOLONE ACETONIDE 0.1% 15 GM TUBE) 15 Gm Oint...g., 15 GM TP, TUBE 01/09/18 Hydroxyzine Hcl (HYDROXYZINE HCL) 10 Mg Tablet, 10 MG PO Q6H PRN for ITCHING 01/09/18 Lamotrigine (LAMOTRIGINE) 100 Mg Tablet, 150 MG PO DAILY 1 1/2 pills a day 12/19/17 Docusate Sodium (COLACE) 100 Mg Capsule, 2 MG PO QHS, CAPSULE 2 tab nightly 11/17/17 Multivits,Ca,Minerals/Iron/Fa (THERA-M TABLET) 1 Each Tablet, 1 EACH PO DAILY 11/17/17 Gabapentin (GABAPENTIN) 300 Mg Capsule, 300 MG PO TID, CAPSULE 11/16/17 Paroxetine Hcl (PAXIL) 20 Mg Tablet, 20 MG PO QDAY, TAB 11/01/16 Folic Acid (FOLIC ACID) 1 Mg Tablet, 1 MG PO QDAY, TAB 11/01/16 Cholecalciferol (Vitamin D3) (VITAMIN D3) 1,000 Unit Tablet, PO DAILY, TAB 06/29/16 Tamsulosin Hcl (FLOMAX) 0.4 Mg Cap.er.24h, 0.4 MG PO QDAY, CAP 05/29/16 Pravastatin Sodium (PRAVASTATIN SODIUM) 40 Mg Tablet, 1 TAB PO QDAY 05/29/16 Trazodone Hcl (TRAZODONE HCL) 100 Mg Tablet, 100 MG PO QHS, TAB 05/29/16 Discontinued Reported Medications TESTOSTERONE 1.62% Topical Gel (ANDROGEL 1.62% Topical Gel) 1.25 Gm Gel.packet, 50 MG TOP QDAY 08/24/16 Past Medical/Surgical History Patient has a past medical history of seizures, hyperlipidemia, asthma, reflux, cholecystitis, urinary retention, incontinence, prostatitis, knee arthritis, collarbone fracture, rib fracture, back pain, diabetes, bipolar, depression. Patient has a surgical history of cataract surgery, detached retina surgery, tonsillectomy, right shoulder surgery, knee surgery, cholecystectomy. Patient has a family medical history of cancer, CAD, stroke, diabetes, depression. Reviewed Nurses Notes: Yes Hx Smoking: No Smoking Status: Never Smoker Exposure to Second Hand Smoke?: No Hx Substance Use Disorder: No Hx Alcohol Use: Yes Constitutional Vital Sign - Last 24 Hours 03/04/18 03/04/18 11:34 11:36 Temp 98.2 Pulse 118 108 Resp 17 17 B/P (MAP) 157/97 158/97 (117) Pulse Ox 91 97 O2 Delivery Room Air Physical Exam General Appearance: The patient is alert, has no immediate need for airway protection and no current signs of toxicity. Respiratory: Chest is non tender, lungs are clear to auscultation. Cardiac: regular rate and rhythm Gastrointestinal: Abdomen is soft and non tender, no masses, bowel sounds normal. Musculoskeletal: Neck: Neck is supple and non tender. Extremities have full range of motion and are non tender. Skin: No rashes or lesions. DIFFERENTIAL DIAGNOSIS: After history and physical exam differential diagnosis was considered for alcohol withdrawal, depression, anxiety. Medical Decision Making Data Points Result Diagram: 03/04/18 1146 03/04/18 1146 Laboratory Hematology Test 03/04/18 11:46 03/04/18 13:14 Red Blood Count 5.17 M/uL (4.00-5.60) Mean Corpuscular Volume 93.6 fL (80.0-96.0) Mean Corpuscular Hemoglobin 31.4 pg (26.0-33.0) Mean Corpuscular Hemoglobin Concent 33.5 g/dL (32.0-36.0) Red Cell Distribution Width 14.9 % (11.5-14.5) Mean Platelet Volume 7.6 fL (7.2-11.1) Neutrophils (%) (Auto) 71.4 % (39.4-72.5) Lymphocytes (%) (Auto) 19.2 % (17.6-49.6) Monocytes (%) (Auto) 8.1 % (4.1-12.4) Eosinophils (%) (Auto) 0.5 % (0.4-6.7) Basophils (%) (Auto) 0.8 % (0.3-1.4) Nucleated RBC Relative Count (auto) 0.0 /100WBC Neutrophils # (Auto) 6.0 K/uL (2.0-7.4) Lymphocytes # (Auto) 1.6 K/uL (1.3-3.6) Monocytes # (Auto) 0.7 K/uL (0.3-1.0) Eosinophils # (Auto) 0.0 K/uL (0.0-0.5) Basophils # (Auto) 0.1 K/uL (0.0-0.1) Nucleated RBC Absolute Count (auto) 0.00 K/uL Sodium Level 137 mmol/L (137-145) Potassium Level 4.1 mmol/L (3.5-5.0) Chloride Level 100 mmol/L (98-107) Carbon Dioxide Level 15 mmol/L (22-30) Blood Urea Nitrogen 17 mg/dl (9-21) Creatinine 0.90 mg/dl (0.66-1.25) Glomerular Filtration Rate Calc > 60.0 Random Glucose 245 mg/dl (75-110) Calcium Level 9.9 mg/dl (8.4-10.2) Magnesium Level 1.5 mg/dl (1.7-2.2) Total Bilirubin 0.4 mg/dl (0.2-1.3) Aspartate Amino Transf (AST/SGOT) 48 U/L (0-35) Alanine Aminotransferase (ALT/SGPT) 57 U/L (0-56) Alkaline Phosphatase 66 U/L (0-126) Total Protein 7.7 g/dl (6.3-8.2) Albumin 4.7 g/dl (3.5-5.0) Thyroid Stimulating Hormone (TSH) 1.51 uIU/ml (0.46-4.68) Salicylates Level < 10 mg/L Salicylate Last Dose Date unk Acetaminophen Level < 10 ug/ml Serum Alcohol 38 mg/dl Urine Color Yellow Urine Clarity Clear Urine pH 5.0 pH (4.8-9.5) Urine Specific [place] 1.025 Urine Protein 100 mg/dL (NEGATIVE) Urine Glucose (UA) 150 mg/dL (NEGATIVE) Urine Ketones 20 mg/dL (NEGATIVE) Urine Blood Small (NEGATIVE) Urine Nitrite Negative (NEGATIVE) Urine Bilirubin Negative (NEGATIVE) Urine Urobilinogen Negative mg/dL (0.2-1.9) Urine Leukocyte Esterase Negative (NEGATIVE) Urine RBC <1 /HPF (0-2/HPF) Urine WBC 1 /HPF (0-5/HPF) Urine Squamous Epithelial Cells Few /LPF (</=FEW) Urine Bacteria Negative /HPF (NONE-FEW) Urine Hyaline Casts Moderate /LPF (NONE-FEW) Urine Mucus Few /HPF (NONE-FEW) Urine Opiates Screen Negative Urine Barbiturates Screen Negative Ur Tricyclic Antidepressants Screen Negative Urine Phencyclidine Screen Negative Urine Amphetamines Screen Negative Urine Benzodiazepines Screen Negative Urine Cocaine Screen Negative Urine Cannabinoids Screen Negative Chemistry Test 03/04/18 11:46 03/04/18 13:14 White Blood Count 8.4 k/uL (4.5-11.0) Red Blood Count 5.17 M/uL (4.00-5.60) Hemoglobin 16.2 g/dL (14.0-18.0) Hematocrit 48.4 % (42.0-52.0) Mean Corpuscular Volume 93.6 fL (80.0-96.0) Mean Corpuscular Hemoglobin 31.4 pg (26.0-33.0) Mean Corpuscular Hemoglobin Concent 33.5 g/dL (32.0-36.0) Red Cell Distribution Width 14.9 % (11.5-14.5) Platelet Count 283 K/uL (150-450) Mean Platelet Volume 7.6 fL (7.2-11.1) Neutrophils (%) (Auto) 71.4 % (39.4-72.5) Lymphocytes (%) (Auto) 19.2 % (17.6-49.6) Monocytes (%) (Auto) 8.1 % (4.1-12.4) Eosinophils (%) (Auto) 0.5 % (0.4-6.7) Basophils (%) (Auto) 0.8 % (0.3-1.4) Nucleated RBC Relative Count (auto) 0.0 /100WBC Neutrophils # (Auto) 6.0 K/uL (2.0-7.4) Lymphocytes # (Auto) 1.6 K/uL (1.3-3.6) Monocytes # (Auto) 0.7 K/uL (0.3-1.0) Eosinophils # (Auto) 0.0 K/uL (0.0-0.5) Basophils # (Auto) 0.1 K/uL (0.0-0.1) Nucleated RBC Absolute Count (auto) 0.00 K/uL Glomerular Filtration Rate Calc > 60.0 Calcium Level 9.9 mg/dl (8.4-10.2) Magnesium Level 1.5 mg/dl (1.7-2.2) Total Bilirubin 0.4 mg/dl (0.2-1.3) Aspartate Amino Transf (AST/SGOT) 48 U/L (0-35) Alanine Aminotransferase (ALT/SGPT) 57 U/L (0-56) Alkaline Phosphatase 66 U/L (0-126) Total Protein 7.7 g/dl (6.3-8.2) Albumin 4.7 g/dl (3.5-5.0) Thyroid Stimulating Hormone (TSH) 1.51 uIU/ml (0.46-4.68) Salicylates Level < 10 mg/L Salicylate Last Dose Date unk Acetaminophen Level < 10 ug/ml Serum Alcohol 38 mg/dl Urine Color Yellow Urine Clarity Clear Urine pH 5.0 pH (4.8-9.5) Urine Specific [place] 1.025 Urine Protein 100 mg/dL (NEGATIVE) Urine Glucose (UA) 150 mg/dL (NEGATIVE) Urine Ketones 20 mg/dL (NEGATIVE) Urine Blood Small (NEGATIVE) Urine Nitrite Negative (NEGATIVE) Urine Bilirubin Negative (NEGATIVE) Urine Urobilinogen Negative mg/dL (0.2-1.9) Urine Leukocyte Esterase Negative (NEGATIVE) Urine RBC <1 /HPF (0-2/HPF) Urine WBC 1 /HPF (0-5/HPF) Urine Squamous Epithelial Cells Few /LPF (</=FEW) Urine Bacteria Negative /HPF (NONE-FEW) Urine Hyaline Casts Moderate /LPF (NONE-FEW) Urine Mucus Few /HPF (NONE-FEW) Urine Opiates Screen Negative Urine Barbiturates Screen Negative Ur Tricyclic Antidepressants Screen Negative Urine Phencyclidine Screen Negative Urine Amphetamines Screen Negative Urine Benzodiazepines Screen Negative Urine Cocaine Screen Negative Urine Cannabinoids Screen Negative Toxicology Test 03/04/18 11:46 03/04/18 13:14 Salicylates Level < 10 mg/L Salicylate Last Dose Date unk Acetaminophen Level < 10 ug/ml Serum Alcohol 38 mg/dl Urine Opiates Screen Negative Urine Barbiturates Screen Negative Ur Tricyclic Antidepressants Screen Negative Urine Phencyclidine Screen Negative Urine Amphetamines Screen Negative Urine Benzodiazepines Screen Negative Urine Cocaine Screen Negative Urine Cannabinoids Screen Negative Urinalysis Test 03/04/18 13:14 Urine Color Yellow Urine Clarity Clear Urine pH 5.0 pH (4.8-9.5) Urine Specific [place] 1.025 Urine Protein 100 mg/dL (NEGATIVE) Urine Glucose (UA) 150 mg/dL (NEGATIVE) Urine Ketones 20 mg/dL (NEGATIVE) Urine Blood Small (NEGATIVE) Urine Nitrite Negative (NEGATIVE) Urine Bilirubin Negative (NEGATIVE) Urine Urobilinogen Negative mg/dL (0.2-1.9) Urine Leukocyte Esterase Negative (NEGATIVE) Urine RBC <1 /HPF (0-2/HPF) Urine WBC 1 /HPF (0-5/HPF) Urine Squamous Epithelial Cells Few /LPF (</=FEW) Urine Bacteria Negative /HPF (NONE-FEW) Urine Hyaline Casts Moderate /LPF (NONE-FEW) Urine Mucus Few /HPF (NONE-FEW) ED Course/Re-evaluation ED Course Patient was admitted to an exam room, history and physical were obtained. Differential diagnoses were considered. On examination lungs are clear, heart is regular, abdomen soft nontender. Lab work for a behavioral health admission were done. The labs were unremarkable, blood alcohol was 38. I discussed the case with Dr. Smyth, psychiatrist, who reviewed the labs and agree to accept the patient for admission to [facility] for diagnosis of alcohol withdrawal. We did discuss that I do have concerns about depression playing a significant role in this and Dr. Smyth felt the patient would be good for [facility] and could use some treatment and therapy. I discussed this with patient who verbalized understanding and agreement with plan. Decision to Disposition Date: Mar 04, 2018 Decision to Disposition Time: 14:05 Depart Departure Latest Vital Signs Vital Signs Date Time Temp Pulse Resp B/P (MAP) Pulse Ox O2 Delivery O2 Flow Rate FiO2 03/04/18 11:36 108 17 158/97 (117) 97 03/04/18 11:34 98.2 Room Air Impression: Primary Impression: Alcohol withdrawal Condition: Condition Unchanged Disposition: XFER TO [facility] Referrals: LIUDMILA PRETTY MD (PCP) Problem Qualifiers Primary Impression: Alcohol withdrawal Complication of substance-induced condition: uncomplicated Qualified Codes: F10.230 - Alcohol dependence with withdrawal, uncomplicated MERLIN LOPEZ Mar 04, 2018 11:35
[2018-03-04 11:36] VITALS: BP 158/97
[2018-03-04 11:53] LABS: PLATELET COUNT, AUTOMATED 283 K/uL (150-450)
[2018-03-04] MEDS ORDERED: LORazepam 1 MG TAB PO ONE (12:40)
== END 2018-03-04 14:42 ==
LOC: ER 11:26
DX: F10.230 Alcohol dependence with withdrawal, uncomplicated (principal); Y90.1 Blood alcohol level of 20-39 mg/100 ml
CPT/HCPCS: 80305; 81001; 83735; 84443; 85025; 99284; A9270; G0480; 80320; 80329; 82040; 82247; 82310; 82374; 82435; 82565; 82947; 84075; 84132; 84155; 84295; 84450; 84460; 84520

== ENCOUNTER 2018-03-04 14:09 | Inpatient (IN) | payer MEDICARE, OTHER ==
[2017-12-27 16:34] VITALS: Ht 170.2 cm; Wt 90.7 kg
[~2018-03-04] VITALS: Ht 170.2 cm; Wt 90.7 kg
[2018-03-04] MEDS ORDERED: MAG HYD/AL HYD/SIMETH 30ML UDC PO PRN (14:35)
[2018-03-04 14:51] VITALS: BP 150/92
[2018-03-04] MEDS ORDERED: DIAZEPAM 10 MG TAB PO PRN (15:00)
[2018-03-04] MEDS ORDERED: lamoTRIgine 100 MG TAB PO ONE (17:15)
[2018-03-04 18:45] VITALS: BP 152/90
[2018-03-04] MEDS: DOCUSATE SODIUM 100 MG CAP PO SCH (20:34)
[2018-03-04] MEDS: traZODone HCL 50 MG TAB PO SCH (20:34)
[2018-03-04] MEDS: GABAPENTIN 300 MG CAP PO SCH (20:35)
[2018-03-04] MEDS: TAMSULOSIN HCL 0.4 MG CAP PO SCH (20:35)
[2018-03-04] MEDS: PRAVASTATIN SOD 20 MG TAB PO SCH (20:37)
[2018-03-04 22:15] VITALS: BP 124/70
[2018-03-05 04:30] VITALS: BP 136/82
[2018-03-05] MEDS: CHOLECALCIFEROL 1000 UNIT TAB PO SCH (08:18)
[2018-03-05] MEDS: GABAPENTIN 300 MG CAP PO SCH ×3 (08:18→20:32)
[2018-03-05] MEDS: THIAMINE HCL 100 MG TAB PO SCH (08:19)
[2018-03-05] MEDS: lamoTRIgine 100 MG TAB PO SCH (08:19)
[2018-03-05] MEDS: PAROXETINE HCL 10 MG TABLET PO SCH (08:20)
[2018-03-05] MEDS: MULTIVITAMINS PO SCH (08:20)
[2018-03-05] MEDS: FOLIC ACID 1 MG TAB PO SCH (09:00)
[2018-03-05 10:53] VITALS: BP 141/94
[2018-03-05 13:49] VITALS: BP 136/86
[2018-03-05 19:00] VITALS: BP 132/75
--- NOTE | 2018-03-05 19:10 | NUR ---
1899 CIWA = 1. pt states he feels great. states he hasn't felt this good in "6 weeks". no complaints or distress noted.
[2018-03-05] MEDS: TAMSULOSIN HCL 0.4 MG CAP PO SCH (20:23)
[2018-03-05] MEDS: PRAVASTATIN SOD 20 MG TAB PO SCH (20:24)
[2018-03-05] MEDS: traZODone HCL 50 MG TAB PO SCH (20:24)
[2018-03-05] MEDS: DOCUSATE SODIUM 100 MG CAP PO SCH (20:27)
[2018-03-06 04:00] VITALS: BP 118/64
[2018-03-06 07:25] VITALS: BP 134/80
[2018-03-06] MEDS: FOLIC ACID 1 MG TAB PO SCH (08:08)
[2018-03-06] MEDS: lamoTRIgine 100 MG TAB PO SCH (08:08)
[2018-03-06] MEDS: MULTIVITAMINS PO SCH (08:09)
[2018-03-06] MEDS: THIAMINE HCL 100 MG TAB PO SCH (08:09)
[2018-03-06] MEDS: PAROXETINE HCL 10 MG TABLET PO SCH (08:09)
[2018-03-06] MEDS: CHOLECALCIFEROL 1000 UNIT TAB PO SCH (08:09)
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
[2018-03-06] MEDS ORDERED: GABAPENTIN 300 MG CAP PO SCH (09:00)
--- NOTE | 2018-03-07 12:37 | SCHAAF DISCHARGE ---
DATE OF ADMISSION: March 04, 2018 DATE OF DISCHARGE: March 06, 2018 ATTENDING PHYSICIAN Zain Smyth MD The patient was seen at approximately 09:00 hours on March 06, 2018 for note concerning this dictation. FINAL DIAGNOSES 1. Alcohol use disorder, severe. 2. Adjustment disorder with anxious and depressed mood. 3. Post traumatic stress disorder. 4. Social stressors revolving around isolation and legal stressors and some chronic pain. REASON FOR ADMISSION This is a pleasant 67-year-old male who was admitted on a voluntary basis for help with withdrawal and overall depressing concerns around the holidays and some social isolation. The patient very cooperative with admission. Please see History and Physical for full details. The patient's alcohol withdrawal was treated to completion. Noted to be mild to moderate in nature, requiring small amounts of Diazepam for completion. The patient's Gabapentin was increased while patient was on the unit to help with anxiety and chronic pain and abstinence from alcohol. The patient continued to improve in the absence of alcohol intoxication and withdrawal symptoms. The patient was tolerant of returning home. No parasuicidal behaviors were noted. Patient adamantly denying suicidal ideation at time of discharge. PHYSICAL EXAMINATION Please see emergency room note. Notable for 67-year-old male with some chronic pain status post recent laminectomy. Vital signs at the time of admission: Temperature 98.2, pulse 118, respiratory rate 17, blood pressure 157/97 and pulse oximetry 91% on room air. Vital signs at the time of discharge: Temperature 98.1, pulse 62, respiratory rate 18, blood pressure 134/80 and pulse oximetry 93% on room air. LABORATORY DATA Hemoglobin A1C measured on the unit was 5.4. At the time of admission CBC was unremarkable overall. CMP notable for a random glucose elevated at 245 at the time of admission. Magnesium low at 1.5, ALT and ALT 48 and 57, mildly elevated. TSH 1.51 and normal range. Toxicology screen negative substances of abuse with a serum alcohol level of 38 upon admission. Urinalysis did show urine glucose and urine protein present. Urine ketones as well at time of admission. MENTAL STATUS EXAMINATION GENERAL APPEARANCE, BEHAVIOR AND ATTITUDE: This is polite, cooperative 67-year-old male appeared stated age, interacting well, making good eye contact, smiling, laughing appropriately. No bizarre mannerisms or tics. SPEECH: Within normal limits. Regular rate, rhythm, volume and tone. MOOD: Described as good and improved. AFFECT: Full and bright. THOUGHT PROCESSES: Logical and goal-directed, no loose associations or flight of ideas. THOUGHT CONTENT: Free of auditory or visual hallucinations, ideas of reference, thought broadcastings, delusions, obsessions or compulsions. Negative for any suicidal or homicidal ideation. SENSORIUM: Clear. COGNITION: Alert and oriented to person, place, time and situation. MEMORY: Immediate, recent and remote was estimated intact. INTELLIGENCE: Average, based on interview. INSIGHT AND JUDGMENT: Considered grossly intact in the absence of alcohol use and appropriate for ongoing outpatient management. RESULTS OF TESTING Imaging: None. Laboratory data: See above. Psychological testing: Not done. CONSULTATIONS None. TREATMENT Patient received medications, participated in individual and group therapy. HOSPITAL COURSE The patient remained on current outpatient regiment with the addition of increased Gabapentin. The patient continued to improve. Alcohol withdrawal treated to completion with minimal amounts of Diazepam. In addition alcohol use disorder and treatment of alcohol withdrawal, the patient continues to have adjustment disorder symptoms based on pending divorce, social isolation. These were addressed in therapy and patient indicated learning ways to manage these stressors on an outpatient basis. CONDITION OF PATIENT ON DISCHARGE Stable. Considered a minimal risk to himself or others, appropriate for outpatient care. DISPOSITION The patient was discharged to home. He would follow up with continued outpatient medications as scheduled. He would abstain from all alcohol, attend AA and obtain a sponsor. The Crisis line was given should symptoms return. He would follow up with PCP and neurologist as well. DISCHARGE MEDICATIONS 1. Multivitamin with minerals daily. 2. Paxil 20 mg daily. 3. Pravastatin 40 mg daily. 4. Flomax 0.4 mg daily. 5. Trazodone 100 mg at bedtime. 6. Triamcinolone cream topical as needed. 7. Vitamin D3 1000 internal units daily. 8. Docusate sodium 200 mg at bedtime. 9. Gabapentin 600 mg orally t.i.d. 10. Lamictal 150 mg daily. The risks, benefits and alternatives of the above discharge plan were discussed. Informed consent was given to proceed with the above discharge plan by this competent patient. [facility]
== END 2018-03-06 12:45 | disposition home or self-care (01) | DRG 897 ==
LOC: BHS 14:09
PROVIDERS: ADMIT Psychiatry & Neurology Psychiatry; ATTEND Psychiatry & Neurology Psychiatry
DX: F10.230 Alcohol dependence with withdrawal, uncomplicated (principal); F43.23 Adjustment disorder with mixed anxiety and depressed mood; F43.12 Post-traumatic stress disorder, chronic; G89.29 Other chronic pain; Z60.4 Social exclusion and rejection; Y90.1 Blood alcohol level of 20-39 mg/100 ml; Z81.1 Family history of alcohol abuse and dependence; Z81.8 Family history of other mental and behavioral disorders; Z88.1 Allergy status to other antibiotic agents; Z63.5 Disruption of family by separation and divorce
CPT/HCPCS: 36416; 82948; 83036

== ENCOUNTER → 2018-05-01 | Outpatient (CLI) | payer MEDICARE, OTHER ==
[2017-12-27 16:34] VITALS: BMI 31.9
[~2018-05-01] MED LIST changes: +GADOBENATE 529MG/1ML 15ML VIAL IVP ONE
--- NOTE | 2018-05-01 14:05 | RADIOLOGY IMAGING REPORT ---
FACILITY: [facility] PATIENT NAME: Chava Peck : 1950 MR: [id number] V: [id number] EXAM DATE: ORDERING PHYSICIAN: DHEERAJ PACHECO TECHNOLOGIST: Location: [facility] - [place] Patient: Chava Peck : 1950 Visit/Account:[id number] Date of Sevice: 05/01/2018 Study: MRI of the brain without and with gadolinium contrast. Indication: Gait disturbance Comparison study: August 18, 2016 Contrast used: 15 mL MultiHance gadolinium contrast Technique: Multiplanar MRI sequences were obtained through the brain before and after the administrat ion of gadolinium contrast. The examination demonstrates no evidence of acute intracranial hemorrhage. There is no evidence of ex tra-axial collection or hydrocephalus. There is no abnormal signal identified within the brain parenchyma. The pituitary gland is unremarkable in appearance. There is no evidence of abnormality of the pineal gland. A diffusion-weighted sequence was performed and demonstrates no evidence of active ischemia. There is no evidence of active infarct The orbits are unremarkable. The paranasal sinuses are unremarkable Following the administration of gadolinium contrast, there is no abnormal intracranial contrast enhan cement. IMPRESSION: No evidence of active ischemia. There is no acute intracranial abnormality noted. Report Dictated By: Eddy Holden at 05/01/2018 1:56 PM Report E-Signed By: Eddy Holden at 05/01/2018 1:59 PM WSN:[id number]
== END ==
LOC: MRI 08:08
PROVIDERS: ATTEND Psychiatry & Neurology Neurology
DX: R26.9 Unspecified abnormalities of gait and mobility (principal)
CPT/HCPCS: 70553; A9577

== ENCOUNTER → 2018-05-14 | Outpatient (CLI) | payer MEDICARE, OTHER ==
[2017-12-27 16:34] VITALS: BMI 31.9
[~2018-05-14] MED LIST changes: -GADOBENATE 529MG/1ML 15ML VIAL IVP ONE
--- NOTE | 2018-05-14 13:55 | RADIOLOGY IMAGING REPORT ---
FACILITY: [facility] PATIENT NAME: Chava Peck : 1950 MR: [id number] V: [id number] EXAM DATE: ORDERING PHYSICIAN: JOSE QURESHI TECHNOLOGIST: Location: [facility] [place] Patient: Chava Peck : 1950 Visit/Account:[id number] Date of Sevice: 05/14/2018 EXAMINATION: MRA of the [place] HISTORY: Cerebral aneurysm. COMPARISON: Brain MRI from 05/01/2018. TECHNIQUE: 3D [id number] angiography was performed in the axial plane on the [place] without IV tyler olinium. The exam was tailored for assessment of the [place] only. Only limited sequences were obtai irma of the rest of the brain. FINDINGS: Carotids: Negative. Anterior/posterior communicating arteries: Patent anterior communicating artery. No definite posteri or communicating artery visualized on either side. Anterior cerebral arteries: Negative. Middle cerebral arteries: Negative. Posterior cerebral arteries: Negative. Intracranial vertebral arteries: Vertebral arteries are codominant. Both vertebral arteries contribu te to the basilar artery. Basilar artery: Negative. PICA/AICA/SCA: Duplicated left superior cerebellar arteries, a normal variant. Non-angiographic Findings: None significant. IMPRESSION: Normal MRA of the [place] of [place]. No intracranial aneurysm is visualized. Report Dictated By: Dionne Marina MD at 05/14/2018 1:46 PM Report E-Signed By: Dionne Marina MD at 05/14/2018 1:51 PM WSN:[id number]
== END ==
LOC: MRI 10:58
PROVIDERS: ATTEND Technician/Technologist Ophthalmic
DX: I67.1 Cerebral aneurysm, nonruptured (principal)
CPT/HCPCS: 70544

== ENCOUNTER → 2018-06-03 | Outpatient (REF) | payer MEDICARE, OTHER ==
[2017-12-27 16:34] VITALS: BMI 31.9
== END ==
LOC: ZZIMHLAB 16:50
PROVIDERS: ATTEND Family Medicine
DX: R76.8 Other specified abnormal immunological findings in serum (principal)
CPT/HCPCS: 85651

== ENCOUNTER → 2018-08-08 | Outpatient (CLI) | payer MEDICARE, OTHER ==
[2017-12-27 16:34] VITALS: BMI 31.9
== END ==
LOC: LAB 10:37
PROVIDERS: ATTEND Physician Assistant
DX: R94.5 Abnormal results of liver function studies (principal)
CPT/HCPCS: 36415; 85610; 85730

== ENCOUNTER 2018-08-12 00:07 | Observation (INO) | payer MEDICARE, OTHER ==
[2018-08-12] VITALS (10 sets, daily range): BP systolic 110–151; BP diastolic 68–95
[~2018-08-12] VITALS: Ht 170.2 cm; Wt 80.3 kg
[~2018-08-12 00:07] MED LIST changes: +GENTAMICIN(*) 80 MG/2 ML VIAL 160 MG in NS(*) 0.9% 100 ML BAG 100 ML IVPB ONE; +cefTRIAXone(*) 1 GM VIAL 1 GM in NS(*) 0.9% 100 ML MINI-BAG 100 ML IVPB ONE
[2018-08-12] MEDS ORDERED: MIDAZOLAM 2 MG/2 ML VIAL IVP PRN (09:00)
[2018-08-12] MEDS ORDERED: LIDOCAINE/SOD BICARB 8.4% SYR ID ONE (09:00)
[2018-08-12] MEDS ORDERED: FAMOTIDINE 20 MG TAB PO ONE (09:00)
[2018-08-12] MEDS ORDERED: GENTAMICIN(*) 80 MG/2 ML VIAL 160 MG in NS(*) 0.9% 100 ML BAG 100 ML IVPB ONE (09:00)
[2018-08-12] MEDS ORDERED: NORMOSOL R SOLN(*) 1000 ML BAG 1,000 ML IV PRN (09:00)
[2018-08-12] MEDS ORDERED: cefTRIAXone(*) 1 GM VIAL 1 GM in NS(*) 0.9% 100 ML MINI-BAG 100 ML IVPB ONE (09:00)
[2018-08-12 09:39] LABS: PLATELET COUNT, AUTOMATED 224 K/uL (150-450)
[2018-08-12] MEDS ORDERED: MINERAL OIL LIGHT 10 ML VIAL ONE (09:52)
[2018-08-12] MEDS ORDERED: BELLADONNA ALK/OPIUM 60MG SUPP PR ONE (11:28)
[2018-08-12] MEDS ORDERED: GLYCOPYRROLATE 0.2MG/ML 1 ML INJ ONE ×2 (11:29→11:36)
[2018-08-12] MEDS ORDERED: FLUSH 10 ML SYR IVP PRN (11:40)
[2018-08-12] MEDS ORDERED: ONDANSETRON 4 MG/2 ML VIAL IVP PRN (11:40)
[2018-08-12] MEDS ORDERED: GLYCOPYRROLATE 0.2MG/ML 1 ML INJ IVP PRN (11:40)
[2018-08-12] MEDS ORDERED: PROPANTHELINE BROMIDE 15MG TAB PO PRN (11:40)
[2018-08-12] MEDS ORDERED: PCA LOCKBOX KEYS XX PRN (11:40)
[2018-08-12] MEDS ORDERED: ZOLPIDEM TARTRATE 5 MG TAB PO PRN (11:40)
[2018-08-12] MEDS ORDERED: BELLADONNA ALK/OPIUM 60MG SUPP PR PRN (11:40)
[2018-08-12] MEDS ORDERED: NALOXONE HCL 0.4 MG/ML VIAL IVP PRN (11:40)
[2018-08-12] MEDS ORDERED: LR(*) 1000 ML BAG 1,000 ML IV PRN (11:40)
[2018-08-12] MEDS ORDERED: ACETAMIN/CODEINE #3 300-30 MG PO PRN (11:40)
[2018-08-12] MEDS ORDERED: HYDROMORPHON PCA10MG/50ML(CII) 10 MG/50 ML PLAST..BAG IV PRN (11:40)
--- NOTE | 2018-08-12 11:44 | OPERATIVE REPORT 1 ---
EVENT DATE: August 12, 2018 SURGEON: Juan Alberto Fonseca MD ANESTHESIOLOGIST: Juan Alberto East MD ANESTHESIA: General. 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 PROCEDURE PERFORMED 1. Cystourethroscopy. 2. Hydrodistention of bladder. 3. Transurethral resection of prostate. 4. Vaporization of prostate. DESCRIPTION OF PROCEDURE Under general anesthetic, the patient was prepped and draped in the extended lithotomy position. The 21-Panendoscope wad admitted through the urethra into the bladder. The urethra was normal. The prostrate showed trilobar hyperplasia with obstruction, mostly by prominent median bar. Bladder showed 4+ trabeculation. Trigonal ureteral orifices were normal. No blood efflux from either orifice. No other demonstrable bladder lesions. The resection was begun by resecting the median lobe back to the verumontanum. The tissue was resected down to the circular fibers at the bladder neck circumferentially. The right and left lateral lobe tissue was resected and posterior tissue was resected with finger in the rectum. The apical tissue was resected at the conclusion of the procedure. The bipolar probe was used to vaporize the entire prostatic capsule. The procedure appeared to be satisfactorily performed. Bleeding appeared to be satisfactorily controlled. Estimated blood loss less than 100 cc. Bladder was filled under gravity flow as measured to a total of approximately 700 cc. On drainage of the bladder, there was no bloody drainage. Under [place] flow the bladder was refilled and the scope was withdrawn. There was good efflux of irrigation flow out the urethra that cut off almost immediately upon withdrawal of the scope. The #22-Indian three-way Rodriguez was placed to the urethra over catheter guide and anchored without any difficulty. The irrigation was clear at the conclusion of the procedure. The system was connected to continuous bladder irrigation system. Patient returned to the recovery room in satisfactory condition. This is a 69-year old white male complaining of increasing difficulty with micturition. He has been on Flomax for several years. Patient states he is having increasing difficulty with urgency and frequency of urination, nocturia and slow urination. Options were discussed with the patient pre-treatment. He was agreeable to cystoscopy and evaluation and treatment was indicated. That has been accomplished. See operative note for details. The bipolar technique was used throughout the procedure. Patient will be ready for discharge home if all is going well. To force fluids, 2L per day. Activities are restricted to careful ambulation. He is to continue his usual medications. Copy of instructions were given to the patient. He will be discharged on Cipro, Pepcid, Pyridium, Colace and his usual analgesic therapies. He takes Tramadol. Plan followup and catheter removal probably this coming Sunday. RAFA
[2018-08-12] MEDS ORDERED: WATER FOR IRRIG,STERILE 3000ML 3,000 ML IR PRN (11:45)
[2018-08-12] MEDS ORDERED: fentaNYL CITR 100 MCG/2 ML AMP ONE (12:14)
[2018-08-12] MEDS ORDERED: DEXT15DR19 OP (13:09)
[2018-08-12] MEDS ORDERED: CYCL1DRO6 OP (13:09)
[2018-08-12] MEDS ORDERED: NS 0.9% 3000 ML IRRIGATION BAG 6,000 ML IR ONE (15:14)
[2018-08-12] MEDS ORDERED: HYPROMELLOSE 0.4% LUB 15ML BTL OU PRN (17:55)
--- NOTE | 2018-08-12 18:01 | Hospitalist Consultation ---
History of Present Illness Requesting Physician Dr. Fonseca Reason for Consult Depression History of Present Illness This patient was admitted for prostate surgery. It is reported that the surgery went well and was without complication. History Problems: (1) HTN (hypertension) (2) Depression with suicidal ideation Status: Acute (3) Bipolar disorder Status: Chronic (4) Depression Status: Chronic (5) Hyperlipemia Status: Chronic (6) Alcohol withdrawal Status: Acute Home Meds Reported Medications Dextran 70/Hypromellose (ARTIFICIAL TEARS EYE DROPS) 15 Ml Drops, 2 ML OP QID PRN for SEE COMMENT Dry Eyes 08/12/18 Cyclosporine (RESTASIS) 1 Each Droperette, 1 EACH OP BID 08/12/18 Folic Acid (FOLIC ACID) 1 Mg Tablet, 1 MG PO QDAY, TAB 08/09/18 Triamcinolone Acetonide 0.1% Oint 15 Gm Tube (TRIAMCINOLONE ACETONIDE 0.1% 15 GM TUBE) 15 Gm Oint...g., 15 GM TP, TUBE 01/09/18 Lamotrigine (LAMOTRIGINE) 100 Mg Tablet, 150 MG PO DAILY TAKE 1 AND A HALF TABLETS (150 MG) DAILY. 12/19/17 Docusate Sodium (COLACE) 100 Mg Capsule, 200 MG PO QHS, CAPSULE TAKE TWO TABLETS AT BEDTIME 11/17/17 Multivits,Ca,Minerals/Iron/Fa (THERA-M TABLET) 1 Each Tablet, 1 EACH PO DAILY 11/17/17 Gabapentin (GABAPENTIN) 300 Mg Capsule, 600 MG PO TID, CAPSULE 11/16/17 Paroxetine Hcl (PAXIL) 20 Mg Tablet, 20 MG PO QAM, TAB 11/01/16 Cholecalciferol (Vitamin D3) (VITAMIN D3) 1,000 Unit Tablet, 1000 PO QAM, TAB 06/29/16 Tamsulosin Hcl (FLOMAX) 0.4 Mg Cap.er.24h, 0.4 MG PO BID, CAP 05/29/16 Pravastatin Sodium (PRAVASTATIN SODIUM) 40 Mg Tablet, 1 TAB PO QDAY 05/29/16 Trazodone Hcl (TRAZODONE HCL) 100 Mg Tablet, 100 MG PO QHS, TAB 05/29/16 Allergies: Coded Allergies: clindamycin (Verified Allergy, Intermediate, WIDE SPREAD RASH AND SOB, 08/09/18) hydrocortisone (Verified Allergy, Unknown, WORSENED HIS RASH, 08/09/18) Hx Smoking: No Smoking Status: Never Smoker Exposure to Second Hand Smoke?: No Caffeine Intake: Coffee Caffeine/Cups Per Day: 1 Hx Alcohol Use: Yes Hx Substance Use Disorder: No Social Drug Use: Never Review of Systems All Systems Reviewed/Normal: Yes Exam Vital Signs Vital Signs Date Time Temp Pulse Resp B/P (MAP) Pulse Ox O2 Delivery O2 Flow Rate FiO2 08/12/18 17:37 95 Nasal Cannula 3.0 08/12/18 17:30 79 08/12/18 15:00 14 116/69 (85) 08/12/18 12:45 98.9 Neuro: No Gross deficits Eyes: PERRLA Cardiovascular: Regular Rate and Rhythm Respiratory: Clear to Auscultation Extremities: No Edema Integumentary: No Cyanosis Medical Decision Making Data Points Result Diagram: 08/12/18 0934 08/12/18 0934 Assessment and Plan Problems: (1) Seizure disorder Assessment & Plan: He is on chronic treatment with gabapentin and Lamictal. (2) Bipolar disorder Status: Chronic Assessment & Plan: He is on chronic treatment with paroxetine and trazodone. (3) Alcohol withdrawal Status: Acute Assessment & Plan: He does have a history of withdrawal in March of this year. Venous Thromboembolism Antithrombotics Is Pt On Any Antithrombotics?: No LIUDMILA CHILDS DO Aug 12, 2018 18:01
[2018-08-12] MEDS ORDERED: NS(*) 0.9% 500 ML BAG 500 ML ONE (18:40)
[2018-08-12] MEDS: GENTAMICIN/NS 80 MG/100 ML PB 100 ML IVPB SCH (18:40)
--- NOTE | 2018-08-12 19:33 | RADIOLOGY IMAGING REPORT ---
FACILITY: [facility] PATIENT NAME: Chava Peck : 1950 MR: [id number] V: [id number] EXAM DATE: ORDERING PHYSICIAN: SUZANNE BARDALES TECHNOLOGIST: Location: [facility] - [place] Patient: Chava Peck : 1950 Visit/Account:[id number] Date of Sevice: 08/12/2018 Study: Single portable view of the chest. Indication: Cough Comparison study: December 29, 2017 Technique: Single AP view of the chest demonstrates no evidence of acute infiltrate. There is no evid ence of pleural effusion or pneumothorax. The mediastinal, cardiac, and diaphragmatic contours are un remarkable. 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 IMPRESSION: No acute cardiopulmonary abnormality. Report Dictated By: Eddy Holden at 08/12/2018 7:26 PM Report E-Signed By: Eddy Holden at 08/12/2018 7:30 PM WSN:[id number]
[2018-08-12] MEDS: DOCUSATE SODIUM 100 MG CAP PO SCH (20:33)
[2018-08-12] MEDS: NEOMYCIN/POLYMYX/BACITR OINT 1 PACKET TP SCH (20:33)
[2018-08-12] MEDS: FAMOTIDINE 20 MG TAB PO SCH (20:33)
[2018-08-12] MEDS: GABAPENTIN 300 MG CAP PO SCH (20:34)
[2018-08-12] MEDS: cycloSPORINE 0.05% EMUL 1 DROP OU SCH (20:34)
[2018-08-12] MEDS: BENZALKONIUM CL 1:750 TOP SOLN TP SCH (20:35)
[2018-08-12] MEDS ORDERED: traZODone HCL 50 MG TAB PO SCH (21:00)
[2018-08-13] MEDS: GENTAMICIN/NS 80 MG/100 ML PB 100 ML IVPB SCH ×2 (01:22→10:30)
[2018-08-13 03:20] VITALS: BP 124/76
[2018-08-13 06:44] VITALS: BP 126/78
[2018-08-13] MEDS ORDERED: DIAZEPAM 10 MG TAB PO PRN ×2 (08:25)
[2018-08-13 08:41] VITALS: Ht 170.2 cm; Wt 80.3 kg
[2018-08-13] MEDS ORDERED: PRAVASTATIN SOD 20 MG TAB PO SCH (09:00)
[2018-08-13] MEDS: BENZALKONIUM CL 1:750 TOP SOLN TP SCH (09:00)
[2018-08-13] MEDS ORDERED: lamoTRIgine 100 MG TAB PO SCH (09:00)
[2018-08-13] MEDS ORDERED: FOLIC ACID 1 MG TAB PO SCH (09:00)
[2018-08-13] MEDS ORDERED: PARoxetine HCL 20 MG TAB PO SCH (09:00)
[2018-08-13] MEDS ORDERED: CIPR-344 PO (09:15)
[2018-08-13] MEDS ORDERED: FAMO20TA28 PO (09:20)
[2018-08-13] MEDS ORDERED: PHEN200T32 PO (09:21)
[2018-08-13] MEDS ORDERED: DOCU-416 PO (09:22)
[2018-08-13] MEDS: NEOMYCIN/POLYMYX/BACITR OINT 1 PACKET TP SCH (09:28)
[2018-08-13] MEDS: GABAPENTIN 300 MG CAP PO SCH ×2 (09:28→13:51)
[2018-08-13] MEDS: cycloSPORINE 0.05% EMUL 1 DROP OU SCH (09:29)
[2018-08-13] MEDS: FAMOTIDINE 20 MG TAB PO SCH (09:29)
[2018-08-13] MEDS: DOCUSATE SODIUM 100 MG CAP PO SCH (09:29)
[2018-08-13] MEDS ORDERED: cefTRIAXone(*) 1 GM VIAL 1 GM in NS(*) 0.9% 100 ML MINI-BAG 100 ML IVPB SCH (09:30)
--- NOTE | 2018-08-13 09:59 | Hospitalist Progress Note ---
Subjective Progress Notes Subjective He has complaints of cough, but reports that he has had this for a few weeks. He also reports increased falls at home. He had no acute events overnight. Patient Complains of: Cardiovascular: No: Chest Pain Respiratory: No: Shortness of Breath Physical Exam Vital Signs Date Time Temp Pulse Resp B/P (MAP) Pulse Ox O2 Delivery O2 Flow Rate FiO2 08/13/18 07:52 92 Room Air 08/13/18 06:44 98.5 59 18 126/78 (94) 08/13/18 03:20 3.0 Intake and Output 08/13/18 01:00 Intake Total 5164 ml Output Total 5800 ml Balance -636 ml Intake Oral 560 ml IV Total 854 ml Other 3750 ml Output Urine Total 1300 ml Other 4500 ml General Appearance: Alert, Awake, No Acute Distress, Afebrile Cardiovascular: Regular Rate and Rhythm Respiratory: No Respiratory Distress, Clear to Auscultation GI: Soft and Non-Tender Psych: Alert & Oriented X3, Appropriate Mood & Affect Result Diagram: 08/12/1893308/12/18933 Assessment and Plan Problems: (1) Seizure disorder Assessment & Plan: He is on chronic treatment with gabapentin and Lamictal. (2) Bipolar disorder Status: Chronic Assessment & Plan: He is on chronic treatment with paroxetine and trazodone. (3) Alcohol withdrawal Status: Acute Assessment & Plan: He does have a history of withdrawal in March of this year. He reports no alcohol consumption in 3 months. (4) Weakness Status: Chronic Assessment & Plan: He reports increased falls since his previous back surgery in January. He has been following with Dr. Santacruz. He will get PT/OT evaluation today. (5) Bronchitis Assessment & Plan: He reports cough with sputum production, which is worse this the morning. CXR done yesterday negative. Lungs clear. Will continue to monitor. Exam Sepsis Risk: No Definite Risk JATIN MONDRAGON WAGE AND SALARY SPECIALIST Aug 13, 2018 09:59
[2018-08-13] MEDS ORDERED: GABA-533 PO (13:03)
--- NOTE | 2018-08-13 14:07 | NUR ---
Occupational Therapy Impression OT evaluation completed with PT. OT services recommended 5x/ week to increase independence with ADL's. OT recommends pt. d/c with Care services. Occupational Therapy Goals 1. Pt. to perform dressing activities with Mod I. 2. Pt. to perform showering activities with Min A. 3. Pt. to perform toileting activities with Mod I. 4. Pt. to perform grooming activities, seated, with I. Patient's Goal
--- NOTE | 2018-08-13 14:50 | NUR ---
OCCUPATIONAL THERAPY Dressing Assistance: Dressing Aid Required: Pt. states he is able to complete LB dressing at home with long handled shoe horn and sock aide. Bathing Assistance: Bathing Equipment: Home Assessment: Not Completed Feeding Assistance: Feeding Specialized Equipment: Pt. has Meals on Wheels. Toilet Use: Verbalizes Needs: Yes Understands Precautions: Yes Cooperative: Yes Family Teaching: No Occupational Therapy Comment: Pt. will d/c to home with HH care and Meals on Wheels. OT recommends pt. acquire an extended toilet seat and a shower chair.
--- NOTE | 2018-08-13 15:48 | NUR ---
Physical Therapy Impression PT eval complete. Pt performed functional mobility tasks at his baseline level and is appropriate to DC home at this time. Pt agreeable to home health to attempt to increase safety at home. Recommend Pt continue to follow-up with his neurologist to address LE numbness, weakness, tremor, and other neurologic symptoms present. Physical Therapy Goals Patient's Goals
--- NOTE | 2018-08-14 12:21 | SWALLOW EVALUATION ---
BEDSIDE DYSPHAGIA buffing machine operator semiautomatic: Jolly Cerna CCC, M.S., CCC-MUSIC PRODUCER Type of Assessment: Bedside dysphagia evaluation Patient: Chava Peck : 1950 Evaluation Date: 08-13-2018 BACKGROUND The patient is a 68 year old male on med/surge for observation following prostate surgery on 08-12-18. PMHx is significant for dysphagia with onset approximately 1 year ago, frequent falls at home and numbness on tops of both feet. [facility] as as yet has no diagnosis. He does have a sister with ALS. He reports a physician once told him he suspected a vagal nerve disorder. An ST consult was requested to evaluate swallow function due to pt reports of choking/coughing with solids with symptoms growing more severe over the last 2m. Primary Medical Diagnosis: Dysphagia Medical History: dysphagia, reflux Pain Scale (0-10): 0, pain free LOC / Participation: A/O x4, participated in all evaluation tasks. Follows Instructions: Yes Functional Communication Deficits impact swallow function/safety, or response to therapy: No DYSPHAGIA ASSESSMENT Sialorrhea: No Xerostomia: No Supplemental Oxygen Use: No COPD Dx: No Pain with Swallow: No Pt was seen at the bedside for clinical swallowing assessment. . Pt was alert and participatory and a good historian for his past and current medical status. Oral exam was unremarkable. No shortness of breath or uneven breathing was observed. Normal vocal quality. Trials of PO administered with H2O only which were WNL. Pt declined PO trials of solids as he was preparing to DC. He reported difficulty swallowing breads and meats. He described difficulty initiating swallow with these foods as well as globus sensation near the laryngneal complex post deglutition. He reported no symptoms with liquid swallows. Recommend BRENDA at this time with avoidance of problematic foods (bread/meats). Education regarding swallow safety provided and recommended he have liquids available during all meals to assist with bolus clearance. Pt reports he as been considering seeking speech therapy services for dysphagia symptoms for sometime and feels it is now important to follow through with this. OVERALL IMPRESSION Mild-mod oropharyngeal dysphagia LOR: Level 3: Mild-moderate dysphagiapotential for aspiration exists but is diminished by specific swallow techniques and a modified diet (ie avoiding problematic foods). Aspiration Risk: Elevated d/t suspected stasis in pharynx following deglutition RECOMMENDATIONS 1. Diet: BRENDA (IDDS 7), regular/thin liquids (IDDS 0). Avoid breads/meats unless well cooked and small bites with liquid wash available for all meals 2. Medications: as tolerated 3. OP or HH ST Thank you for this referral. Please call [phone] with any questions or concerns. Jolly Cerna M.S., CCC-MUSIC PRODUCER MTDD
== END 2018-08-13 13:06 | disposition home health service (06) ==
LOC: OR 00:07 → MED 12:45
DX: N40.0 Benign prostatic hyperplasia without lower urinary tract symptoms (principal); I10 Essential (primary) hypertension
CPT/HCPCS: 52648; 71045; 85025; 88305; 92610; 97163; 97165; A4346; A9270; G0378; J0696; J1100; J1170; J1580; J2250; J2405; J2704; J3010; J3490; J7040; J7050; 82040; 82247; 82310; 82374; 82435; 82565; 82947; 84075; 84132; 84155; 84295; 84450; 84460; 84520

== ENCOUNTER → 2018-09-13 | Outpatient (REF) | payer MEDICARE, OTHER ==
[2018-08-13 08:41] VITALS: BMI 27.7
[~2018-09-13] MED LIST changes: +CIPR-344 PO; +CYCL1DRO6 OP; +DEXT15DR19 OP; +FAMO20TA28 PO; +GABA-533 PO; -GENTAMICIN(*) 80 MG/2 ML VIAL 160 MG in NS(*) 0.9% 100 ML BAG 100 ML IVPB ONE; +PHEN200T32 PO; -cefTRIAXone(*) 1 GM VIAL 1 GM in NS(*) 0.9% 100 ML MINI-BAG 100 ML IVPB ONE
[2018-09-13 15:41] LABS: INR 1.02
== END ==
LOC: ZZSENDIN 15:19
PROVIDERS: ATTEND Family Medicine
DX: Z01.818 Encounter for other preprocedural examination (principal)
CPT/HCPCS: 85610

== ENCOUNTER → 2018-09-20 | Outpatient (CLI) | payer MEDICARE, OTHER ==
[2018-08-13 08:41] VITALS: BMI 27.7
== END ==
LOC: LAB 12:51
PROVIDERS: ATTEND Anesthesiology
DX: Z01.812 Encounter for preprocedural laboratory examination (principal); R56.9 Unspecified convulsions; G72.9 Myopathy, unspecified
CPT/HCPCS: 36415; 80175

== ENCOUNTER → 2018-09-25 | Outpatient (CLI) | payer MEDICARE, OTHER ==
[2018-08-13 08:41] VITALS: BMI 27.7
== END ==
LOC: LAB 10:03
PROVIDERS: ATTEND Anesthesiology
DX: Z01.812 Encounter for preprocedural laboratory examination (principal); G99.2 Myelopathy in diseases classified elsewhere
CPT/HCPCS: 36415; 80175